=== PATIENT | male | born 1965 | race Caucasian/White ===

== ENCOUNTER 2019-01-08 18:50 | Inpatient (IN) | payer OTHER ==
[~2019-01-08] VITALS: Ht 180.3 cm; Wt 91.6 kg
[2019-01-08 19:10] VITALS: BP 240/160
[2019-01-08 20:41] LABS: BASOPHILS % (AUTO) 0.5 % (0.0-2.0); EOSINOPHILS # (AUTO) 0.1 K/uL (0-0.4); EOSINOPHILS % (AUTO) 1.3 % (0.0-4.0); HEMATOCRIT 32.4 % (36-52); HEMOGLOBIN 11.2 g/dL (12.0-18.0); LYMPHOCYTES # (AUTO) 1.9 K/uL (2.0-11.5); LYMPHOCYTES % (AUTO) 35.4 % (20.5-51.1); MEAN CORPUSCULAR HEMOGLOBIN 32 pg (27-31); MEAN CORPUSCULAR HGB CONC 35 g/dL (33-37); MONOCYTES # (AUTO) 0.3 K/uL (0.8-1.0); MONOCYTES % (AUTO) 5.8 % (1.7-9.3); PLATELET COUNT (AUTO) 217 K/uL (140-450); RED BLOOD CELL COUNT(AUTO) 3.48 MIL/uL (4.20-6.10); WHITE BLOOD COUNT (AUTO) 5.3 K/uL (4.8-10.8)
[2019-01-08 21:21] LABS: ANION GAP 15.2 (8-16); POTASSIUM 4.2 mmol/L (3.5-5.1)
[2019-01-08 21:23] LABS: CREATININE 4.3 mg/dL (0.7-1.3)
[2019-01-08 21:26] LABS: ALBUMIN 3.2 g/dL (3.4-5.0); TOTAL BILIRUBIN 0.4 mg/dL (0.0-1.0)
[2019-01-08] MEDS ORDERED: ALBUTEROL 0.083% 2.5 MG/3 ML NEBU INH PRN (23:55)
[2019-01-08] MEDS ORDERED: hydrALAZINE 20 MG/ML VIAL IVP PRN (23:55)
[2019-01-08] MEDS ORDERED: MORPHINE SULFATE 4 MG/ML SYR IVP PRN (23:55)
[2019-01-08] MEDS ORDERED: ONDANSETRON 4 MG/2 ML VIAL IVP PRN (23:55)
[2019-01-09] MEDS ORDERED: MORPHINE SULFATE 4 MG/ML SYR IVP ONE
[2019-01-09] MEDS ORDERED: METOPROLOL 5 MG/5 ML VIAL IVP ONE (00:20)
[2019-01-09 01:00] VITALS: BP 251/137
[2019-01-09 04:00] VITALS: BP 197/116
[2019-01-09] MEDS: LABETALOL 100 MG/20 ML VIAL IVP PRN ×2 (04:20→08:26)
[2019-01-09 07:35] LABS: ANION GAP 13.9 (8-16); CARBON DIOXIDE 22.9 mmol/L (21-32); CREATININE 3.9 mg/dL (0.7-1.3); POTASSIUM 3.8 mmol/L (3.5-5.1)
[2019-01-09 07:41] LABS: MAGNESIUM 1.7 mg/dL (1.8-2.4); PHOSPHORUS 3.2 mg/dL (2.5-4.9)
[2019-01-09 07:45] LABS: BASOPHILS % (AUTO) 0.4 % (0.0-2.0); EOSINOPHILS % (AUTO) 0.9 % (0.0-4.0); HEMATOCRIT 34.3 % (36-52); HEMOGLOBIN 11.9 g/dL (12.0-18.0); LYMPHOCYTES # (AUTO) 1.6 K/uL (2.0-11.5); LYMPHOCYTES % (AUTO) 32.2 % (20.5-51.1); MEAN CORPUSCULAR HEMOGLOBIN 32 pg (27-31); MEAN CORPUSCULAR HGB CONC 35 g/dL (33-37); MEAN CORPUSCULAR VOLUME 92.4 fL (80-94); MONOCYTES # (AUTO) 0.3 K/uL (0.8-1.0); MONOCYTES % (AUTO) 5.5 % (1.7-9.3); PLATELET COUNT (AUTO) 228 K/uL (140-450); RED BLOOD CELL COUNT(AUTO) 3.72 MIL/uL (4.20-6.10); RED CELL DISTRIBUTION WIDTH 14.1 % (11.6-13.7)
[2019-01-09 07:56] VITALS: BP 215/128
[2019-01-09] MEDS: ASPIRIN 81 MG TAB.CHEW PO SCH (08:15)
[2019-01-09] MEDS: ACETAMINOPHEN 325 MG TAB PO PRN ×2 (08:15→17:41)
[2019-01-09] MEDS ORDERED: diphenhydrAMINE 50 MG/ML VIAL IVP PRN (09:35)
[2019-01-09] MEDS ORDERED: MAG SULF 2000 MG/WATER PREMIX 50 ML IV PRN (09:35)
[2019-01-09] MEDS ORDERED: SODIUM PHOSPHATE 118 ML ENEM RC PRN (09:35)
[2019-01-09] MEDS ORDERED: ALUMINUM HYD/MAG/SIMETHICONE 30 ML UDC PO PRN (09:35)
[2019-01-09] MEDS ORDERED: BISACODYL 10 MG SUPP RC PRN (09:35)
[2019-01-09] MEDS ORDERED: MAGNESIUM OXIDE 400 MG TAB PO PRN (09:35)
[2019-01-09] MEDS ORDERED: LORazepam 2 MG/ML VIAL IVP PRN (09:35)
[2019-01-09] MEDS ORDERED: ALBUTEROL 0.083% 2.5 MG/3 ML NEBU INH PRN (09:35)
[2019-01-09] MEDS ORDERED: cloNIDine 0.1 MG TAB PO PRN (09:35)
[2019-01-09] MEDS ORDERED: POTASSIUM CHLORIDE 40 MEQ, LIDOCAINE 1% 25 MG in NACL 0.9% 250 ML IV PRN (09:35)
[2019-01-09] MEDS ORDERED: DOCUSATE SODIUM 250 MG GELCAP PO PRN (09:35)
[2019-01-09] MEDS ORDERED: POTASSIUM CHLORIDE 10 MEQ TABER PO PRN (09:35)
[2019-01-09] MEDS ORDERED: HYDROcodone/APAP 5/325 MG 1 TAB TAB PO PRN ×2 (09:35)
[2019-01-09] MEDS ORDERED: IPRATROPIUM 0.02% 0.5 MG/2.5 ML NEBU INH PRN (09:35)
[2019-01-09] MEDS ORDERED: NIFEdipine 60 MG TABER PO SCH (10:06)
[2019-01-09] MEDS ORDERED: LISINOPRIL 20 MG TAB PO SCH (10:09)
[2019-01-09 12:00] VITALS: BP 202/119
[2019-01-09] MEDS: cloNIDine 0.1 MG TAB PO SCH ×2 (12:01→21:05)
[2019-01-09] MEDS ORDERED: ACETAMINOPHEN 650 MG SUPP RC PRN (14:00)
[2019-01-09] MEDS ORDERED: ACETAMINOPHEN 325 MG TAB PO PRN (14:00)
[2019-01-09 15:53] VITALS: BP 155/91
[2019-01-09 20:00] VITALS: BP 158/97
[2019-01-10] VITALS: BP 122/80
[2019-01-10 04:00] VITALS: BP 148/79
[2019-01-10] MEDS: cloNIDine 0.1 MG TAB PO SCH (05:25)
[2019-01-10 08:00] VITALS: BP 133/84
[2019-01-10 08:17] LABS: BASOPHILS % (AUTO) 0.3 % (0.0-2.0); EOSINOPHILS % (AUTO) 0.9 % (0.0-4.0); HEMATOCRIT 31.8 % (36-52); HEMOGLOBIN 11.1 g/dL (12.0-18.0); LYMPHOCYTES # (AUTO) 1.5 K/uL (2.0-11.5); LYMPHOCYTES % (AUTO) 40.1 % (20.5-51.1); MEAN CORPUSCULAR HEMOGLOBIN 32 pg (27-31); MEAN CORPUSCULAR HGB CONC 35 g/dL (33-37); MEAN CORPUSCULAR VOLUME 92.2 fL (80-94); MONOCYTES # (AUTO) 0.3 K/uL (0.8-1.0); NEUTROPHILS % (AUTO) 51.7 % (42.2-75.2); PLATELET COUNT (AUTO) 207 K/uL (140-450); RED BLOOD CELL COUNT(AUTO) 3.45 MIL/uL (4.20-6.10); RED CELL DISTRIBUTION WIDTH 13.5 % (11.6-13.7); WHITE BLOOD COUNT (AUTO) 3.8 K/uL (4.8-10.8)
[2019-01-10 08:26] LABS: MAGNESIUM 1.9 mg/dL (1.8-2.4); PHOSPHORUS 3.1 mg/dL (2.5-4.9)
[2019-01-10] MEDS: ASPIRIN 81 MG TAB.CHEW PO SCH (08:46)
[2019-01-10] MEDS ORDERED: LISINOPRIL 20 MG TAB PO SCH (09:00)
[2019-01-10] MEDS ORDERED: NIFEdipine 60 MG TABER PO SCH (09:00)
[2019-01-10 09:32] LABS: ANION GAP 10.5 (8-16); CARBON DIOXIDE 29.1 mmol/L (21-32); CREATININE 3.3 mg/dL (0.7-1.3); POTASSIUM 3.6 mmol/L (3.5-5.1)
[2019-01-10] MEDS ORDERED: NIFE60TE8 PO (10:30)
[2019-01-10] MEDS ORDERED: LISI-420 PO (10:30)
[2019-01-10] MEDS ORDERED: CLON0.1T42 PO (10:30)
== END 2019-01-10 12:15 | disposition home or self-care (01) | DRG 199 ==
LOC: MED 18:50 → MTU 23:55
PROVIDERS: ADMIT Internal Medicine Pulmonary Disease; ATTEND Internal Medicine Pulmonary Disease
PROC: 5A1D70Z Performance of Urinary Filtration, Intermittent, Less than 6 Hours Per Day (ICD-10-PCS; principal; 2019-01-09)
DX: I16.0 Hypertensive urgency (principal); E44.1 Mild protein-calorie malnutrition; N18.6 End stage renal disease; I12.0 Hypertensive chronic kidney disease with stage 5 chronic kidney disease or end stage renal disease; E86.0 Dehydration; E83.42 Hypomagnesemia; Z59.0 Homelessness; Z91.15 Patient's noncompliance with renal dialysis; Z99.2 Dependence on renal dialysis
CPT/HCPCS: 36415; 71045; 80048; 80053; 82948; 83036; 83735; 83880; 84100; 84484; 85025; 87081; 90935; 93005; 96374; 96375; 99285; J0360; J1644; J2270; J3490

== ENCOUNTER 2019-02-23 12:31 | Inpatient (IN) | payer OTHER ==
[~2019-02-23] VITALS: Ht 177.8 cm; Wt 96.2 kg
[~2019-02-23 12:31] MED LIST: CLON0.1T42 PO; LISI-420 PO; NIFE60TE8 PO
--- NOTE | 2019-02-23 12:45 | NUR ---
Patient ambulated to bed 6. RN evaluating patient at bedside.
[2019-02-23 12:47] VITALS: BP 235/176
--- NOTE | 2019-02-23 12:55 | NUR ---
Dr. Mahajan evaluating patient at bedside.
--- NOTE | 2019-02-23 13:02 | NUR ---
PATIENT PRESENTS TO ED WITH N/V X 2 DAYS. +BOV, +DIZZINESS, +SOB, +ABDOMINAL PAIN, +BACK PAIN. PATIENT STATES THAT HE USUALLY HAS HIGH BLOOD PRESSURE AND HAS NOT TAKEN HIS MEDS FOR 4 DAYS. SKIN IS PINK/WARM/DRY; AAOX4 WITH EVEN AND STEADY GAIT; LUNGS CLEAR BL; HR EVEN AND REGULAR; PT DENIES ANY FEVER, CP OR COUGH AT THIS TIME; PATIENT STATES PAIN OF 10/10 AT THIS TIME; VSS; PATIENT POSITIONED FOR COMFORT; HOB ELEVATED; BEDRAILS UP X2; BED DOWN. ER MD MADE AWARE OF PATIENT.
[2019-02-23] MEDS ORDERED: LABETALOL 100 MG/20 ML VIAL IVP ONE ×2 (13:05→14:50)
--- NOTE | 2019-02-23 13:08 | NUR ---
telecasting technician at bedside.
--- NOTE | 2019-02-23 13:36 | NUR ---
IV STARTED AND LABS DRAWN SENT TO LAB.
[2019-02-23 13:43] LABS: BASOPHILS % (AUTO) 0.5 % (0.0-2.0); EOSINOPHILS % (AUTO) 0.4 % (0.0-4.0); HEMATOCRIT 31.3 % (36-52); HEMOGLOBIN 10.4 g/dL (12.0-18.0); LYMPHOCYTES # (AUTO) 2.6 K/uL (2.0-11.5); LYMPHOCYTES % (AUTO) 28.4 % (20.5-51.1); MEAN CORPUSCULAR HEMOGLOBIN 31 pg (27-31); MEAN CORPUSCULAR HGB CONC 33 g/dL (33-37); MONOCYTES # (AUTO) 0.7 K/uL (0.8-1.0); NEUTROPHILS # (AUTO) 5.8 K/uL (1.8-7.7); NEUTROPHILS % (AUTO) 62.7 % (42.2-75.2); PLATELET COUNT (AUTO) 289 K/uL (140-450); RED BLOOD CELL COUNT(AUTO) 3.36 MIL/uL (4.20-6.10); RED CELL DISTRIBUTION WIDTH 13.5 % (11.6-13.7); WHITE BLOOD COUNT (AUTO) 9.2 K/uL (4.8-10.8)
[2019-02-23 14:08] LABS: PROTHROMBIN TIME 9.6 secs (10.8-13.4)
[2019-02-23 14:37] LABS: ANION GAP 17.6 (8-16); CARBON DIOXIDE 19.9 mmol/L (21-32); POTASSIUM 4.5 mmol/L (3.5-5.1)
[2019-02-23 14:45] LABS: ALBUMIN 3.1 g/dL (3.4-5.0); PHOSPHORUS 4.7 mg/dL (2.5-4.9); TOTAL BILIRUBIN 0.7 mg/dL (0.0-1.0)
[2019-02-23 14:46] LABS: CREATININE 4.8 mg/dL (0.7-1.3)
[2019-02-23] MEDS ORDERED: ASPIRIN 81 MG TAB.CHEW PO ONE (14:50)
[2019-02-23] MEDS ORDERED: ONDANSETRON 4 MG/2 ML VIAL IVP ONE (15:00)
[2019-02-23] MEDS ORDERED: MORPHINE SULFATE 4 MG/ML SYR IVP ONE (15:00)
[2019-02-23 15:35] LABS: APPEARANCE,URINE CLEAR (CLEAR); BILIRUBIN,URINE NEGATIVE (NEGATIVE); BLOOD, URINE 2+ (NEGATIVE); COLOR,URINE YELLOW (YELLOW); LEUKOCYTE ESTERASE ,URINE NEGATIVE (NEGATIVE); NITRITE, URINE NEGATIVE (NEGATIVE); PH,URINE 5.5 (5.0-9.0); UGLUCOSE NEGATIVE (NEGATIVE)
[2019-02-23] MEDS ORDERED: MORPHINE SULFATE 4 MG/ML SYR IVP PRN (15:35)
[2019-02-23] MEDS ORDERED: ONDANSETRON 4 MG/2 ML VIAL IVP PRN (15:35)
[2019-02-23] MEDS ORDERED: MORPHINE SULFATE 2 MG/ML SYR IVP PRN (15:35)
[2019-02-23] MEDS ORDERED: hydrALAZINE 20 MG/ML VIAL IVP PRN (15:35)
[2019-02-23] MEDS ORDERED: cloNIDine-TTS3 0.3 MG/24 HR 1 EA PATCH TD SCH ×2 (15:35→17:19)
[2019-02-23 15:46] LABS: RBC,URINE 0-5 /HPF (0-5); WBC,URINE 0-5 /HPF (0-5)
[2019-02-23 16:00] VITALS: BP 189/137
--- NOTE | 2019-02-23 16:00 | NUR ---
RECEIVED REPORT FROM ED NURSE KATY. PATIENT IS AWAKE, VERBALLY RESPONSIVE, ALERT, ORIENTED X4. RESPIRATION EVEN AND UNLABORED. DENIES PAIN OR DISCOMFORT AT THIS TIME. SAFETY MEASURES IN PLACE. IV INTACT TO RFA WITH 22G SALINE LOCK. CALL LIGHT WITHIN REACH. WILL MONITOR PATIENT.
--- NOTE | 2019-02-23 16:05 | NUR ---
MRSA SWAB DONE TO PT AND SAMPLE SENT TO LAB.
--- NOTE | 2019-02-23 16:10 | NUR ---
Patient will be admitted to care of DR WINTER. Admited to [facility]. Will go to room 115. Belongings list completed. Report to GUMARO DIOP.
[2019-02-23] MEDS: ISOSORBIDE DINITRATE 20 MG TAB PO SCH (17:47)
--- NOTE | 2019-02-23 19:33 | NUR ---
ENDORSED PT TO CHILD PSYCHOLOGY TEACHER NURSESRINIVASAN, FOR CONTINUITY OF CARE.
--- NOTE | 2019-02-23 19:55 | NUR ---
SEEN PT AWAKE, ALERT AND ORIENTED APPEARS COMFORTABLE. INITIAL ASSESSMENT DONE. VITAL SIGNS CHECKED. PT'S BP ON LEFT ARM:181/123. WILL MEDICATE ORDERED. PT STATES "IT'S NORMAL FOR ME." PT SAID HIS LAST DIALYSIS WAS A MONTH AGO AND THAT HE STILL VOIDS. PT DENIES ANY PAIN OR SHORTNESS OF BREATH RIGHT NOW. PT ASKING FOR APPLE JUICE, WILL GIVE ONE. URINAL EMPTIED W/ 200ML YELLOW-COLORED URINE.
[2019-02-23 20:00] VITALS: BP 181/123
[2019-02-23] MEDS: hydrALAZINE 25 MG TAB PO SCH (21:14)
--- NOTE | 2019-02-23 21:15 | NUR ---
SEEN PT AWAKE, WATCHING TV. MEDICATIONS GIVEN W/ TEACHINGS. URINAL EMPTIED. PT DENIES ANY DISCOMFORT AT THIS TIME. WILL RECHECK BP.
[2019-02-23] MEDS: cloNIDine 0.1 MG TAB PO SCH ×2 (21:22→23:44)
--- NOTE | 2019-02-23 22:50 | NUR ---
SEEN PT TOSSING AND TURNING IN BED. ASKED PT WHAT'S WRONG. PT STATES "I FEEL ANXIOUS AND CAN'T SLEEP, I HAVEN'T FELT THIS WAY BEFORE." INFORMED PT THAT WILL NOTIFY .
--- NOTE | 2019-02-23 22:58 | NUR ---
PAGED DR WINTER PAPER MACHINE TENDER FOR KALE. WILL AWAIT FOR CALL BACK.
[2019-02-23] MEDS ORDERED: LORazepam 2 MG/ML VIAL IM/IVP PRN (23:00)
[2019-02-23] MEDS ORDERED: ZOLPIDEM 5 MG TAB PO PRN (23:00)
--- NOTE | 2019-02-23 23:00 | NUR ---
SPOKE TO DR WINTER REGARDING PT. ORDER FOR ATIVAN AND AMBIEN RECEIVED. WILL GIVE PT MEDICATION.
[2019-02-24] VITALS: BP 182/33
--- NOTE | 2019-02-24 00:30 | NUR ---
PT SLEEPING COMFORTABLY BUT AROUSABLE. NO S/S OF DISTRESS NOTED. VS STABLE. NO COMPLAINTS OF PAIN. NO SOB. AFEBRILE. WILL CONTINUE TO MONITOR. Addendum: 02/25/19 at 0043 by Ivan Mike RN WRONG DATE.
--- NOTE | 2019-02-24 00:50 | NUR ---
PT'S BP CHECKED:168/114. URINAL EMPTIED. PT GIVEN WARM BLANKET PER REQUEST. WILL CONTINUE TO MONITOR.
--- NOTE | 2019-02-24 01:51 | NUR ---
AT 0015, PAGED DR WINTER REGARDING PT'S BP. WILL AWAIT FOR CALL BACK. AT 0020, DR WINTER CALLED BACK AND INFORMED HIM ABOUT PT'S BP. HE SAID, "LEAVE HIM ALONE, THAT'S OK." NO NEW ORDER RECEIVED.
--- NOTE | 2019-02-24 02:55 | NUR ---
SEEN PT ASLEEP BUT EASILY AROUSABLE. URINAL EMPTIED. PT DENIES ANY DISCOMFORT.
--- NOTE | 2019-02-24 03:50 | NUR ---
AWAKEN PT. VITAL SIGNS CHECKED. BP ON RIGHT RLG=963/126. PT DENIES ANY DISCOMFORT OR SOB. INFORMED PT THAT HE WILL HAVE DIALYSIS TODAY. PT AGREEABLE.PT DENIES ANY OTHER NEEDS. URINAL EMPTIED. PT DENIES ANY OTHER NEEDS.
[2019-02-24 04:00] VITALS: BP 174/126
--- NOTE | 2019-02-24 06:07 | NUR ---
SPOKE TO THOMAS-DIALYSIS NURSE VERIFYING THE STAT ORDER FOR HEMODIALYSIS. INFORMATION RELAYED.
--- NOTE | 2019-02-24 06:20 | NUR ---
AWAKEN PT. PT SIGNED CONSENT FOR HEMODIALYSIS TODAY. URINAL EMPTIED W/ 300ML CLEAR, YELLOW URINE. CALL LIGHT W/IN REACH.
--- NOTE | 2019-02-24 06:48 | NUR ---
WILL ENDORSE CARE TO DAYSHIFT NURSE.
[2019-02-24 07:22] LABS: BASOPHILS % (AUTO) 0.4 % (0.0-2.0); EOSINOPHILS % (AUTO) 0.6 % (0.0-4.0); HEMATOCRIT 30.8 % (36-52); HEMOGLOBIN 10.3 g/dL (12.0-18.0); LYMPHOCYTES # (AUTO) 1.8 K/uL (2.0-11.5); LYMPHOCYTES % (AUTO) 27.6 % (20.5-51.1); MEAN CORPUSCULAR HEMOGLOBIN 32 pg (27-31); MEAN CORPUSCULAR HGB CONC 33 g/dL (33-37); MEAN CORPUSCULAR VOLUME 94.6 fL (80-94); MONOCYTES # (AUTO) 0.5 K/uL (0.8-1.0); MONOCYTES % (AUTO) 7.1 % (1.7-9.3); NEUTROPHILS # (AUTO) 4.2 K/uL (1.8-7.7); NEUTROPHILS % (AUTO) 64.3 % (42.2-75.2); PLATELET COUNT (AUTO) 255 K/uL (140-450); RED BLOOD CELL COUNT(AUTO) 3.26 MIL/uL (4.20-6.10); RED CELL DISTRIBUTION WIDTH 13.4 % (11.6-13.7); WHITE BLOOD COUNT (AUTO) 6.5 K/uL (4.8-10.8)
--- NOTE | 2019-02-24 07:34 | NUR ---
RECEIVED REPORT FROM HEALTH INFORMATION MANAGERS RN FOR CONTINUITY OF CARE. PATIENT IS AAOX4, COOPERATIVE. RESPIRATION EVEN AND UNLABORED. DENIES PAIN OR DISCOMFORT AT THIS TIME. SKIN IS INTACT. PT HAS RIGHT SUBCLAVIAN KOREY CATH. SAFETY MEASURES IN PLACE. IV INTACT TO R FA WITH 22G SALINE LOCK. EXPLAINED POC TO PT AND PT VERBALIZED UNDERSTANDING. CALL LIGHT WITHIN REACH. BED IN LOW POSITION. WILL MONITOR PATIENT CLOSELY.
[2019-02-24 07:42] LABS: ALBUMIN 2.9 g/dL (3.4-5.0); ANION GAP 16.1 (8-16); CARBON DIOXIDE 23.2 mmol/L (21-32); POTASSIUM 5.3 mmol/L (3.5-5.1); TOTAL BILIRUBIN 0.8 mg/dL (0.0-1.0)
[2019-02-24 08:10] VITALS: BP 208/136
--- NOTE | 2019-02-24 08:32 | NUR ---
PATIENT HAS BEEN SCREENED AND CATEGORIZED MODERATE NUTRITION RISK. PATIENT WILL BE SEEN WITHIN 3-5 DAYS OF ADMISSION. 02/26/19 02/28/[address]
[2019-02-24 08:33] LABS: CREATININE 4.9 mg/dL (0.7-1.3)
[2019-02-24] MEDS: hydrALAZINE 25 MG TAB PO SCH ×4 (08:35→21:00)
[2019-02-24] MEDS: NIFEdipine 60 MG TABER PO SCH (08:36)
[2019-02-24] MEDS: ASPIRIN 81 MG TAB.CHEW PO SCH (08:36)
[2019-02-24] MEDS: ISOSORBIDE DINITRATE 20 MG TAB PO SCH ×3 (08:36→17:52)
[2019-02-24] MEDS: cloNIDine 0.1 MG TAB PO SCH ×2 (08:37→20:22)
[2019-02-24] MEDS ORDERED: ALTEPLASE 2 MG VIAL MC SCH (08:45)
--- NOTE | 2019-02-24 08:47 | NUR ---
PT KOREY CATH NOT WORKING PROPERLY. ALTEPLASE USED TO UNCLOG CATH. DIALYSIS NURSE UNABLE TO START DIALYSIS AT THIS TIME. DIALYSIS NURSE WILL COMPLETE DIALYSIS ON ANOTHER PT AND THEN COME BACK TO THIS PT.
[2019-02-24] MEDS ORDERED: FUROSEMIDE 40 MG/4 ML VIAL IVP SCH (10:30)
[2019-02-24] MEDS ORDERED: SODIUM ZIRCONIUM CYCLOSILICATE 10 GM POWD.PACK PO SCH (10:30)
[2019-02-24] MEDS ORDERED: CARVEDILOL 6.25 MG TAB PO SCH (11:00)
--- NOTE | 2019-02-24 11:47 | NUR ---
PT SLEEPING. ALL NEEDS MET.
[2019-02-24 12:00] VITALS: BP 156/86
--- NOTE | 2019-02-24 13:24 | NUR ---
PT WATCHING TV IN BED. ALL NEEDS MET. WILL CONTINUE TO ROUND FREQUENTLY ON PT.
--- NOTE | 2019-02-24 14:48 | NUR ---
HD COMPLETE. PT TOTAL OUTPUT WAS 2L. PT TOLERATED WELL. WILL CONTINUE TO ROUND FREQUENTLY ON PT. Addendum: 02/24/19 at 1815 by Ilda Grijalva RN 8-HD COMPLETE. PT TOTAL OUTPUT WAS 2L. PT TOLERATED WELL. WILL CONTINUE TO ROUND FREQUENTLY ON PT.
--- NOTE | 2019-02-24 15:41 | NUR ---
PT RESTING IN BED. RECEIVING DIALYSIS. TOLERATING WELL. ALL NEEDS MET. WILL CONTINUE TO ROUND FREQUENTLY ON PT.
[2019-02-24 16:00] VITALS: BP 152/90
--- NOTE | 2019-02-24 16:48 | NUR ---
HD COMPLETE. PT TOTAL OUTPUT WAS 2L. PT TOLERATED WELL. WILL CONTINUE TO ROUND FREQUENTLY ON PT.
--- NOTE | 2019-02-24 18:15 | NUR ---
PT RESTING IN BED EATING DINNER. ALL NEEDS MET.
[2019-02-24 20:00] VITALS: BP 154/78
--- NOTE | 2019-02-24 20:10 | NUR ---
PT HAS COMPLAINTS OF HEADACHE. CALLED MD FOR TYL ORDER. NEW ORDER FOR TYL 650MG PO Q4H PRN FOR HEADACHE AND MILD PAIN. TORB.
--- NOTE | 2019-02-24 20:14 | NUR ---
PT ENDORSED TO SLOPE RUNNER BY CHARGE NURSE YARA. PT IN STABLE CONDITION AT THIS TIME.
--- NOTE | 2019-02-24 20:15 | NUR ---
REPORT RECEIVED FROM AM NURSE AT BEDSIDE. PT IN STABLE CONDITION. AAOX4. INTRODUCED SELF TO PT. BOARD UPDATED. PT HAS COMPLAINTS OF HEADACHE. WILL MEDICATE. NO SOB. AFEBRILE. PT IS AMBULATORY. IV SITE R FA 22G SL PATENT AND INTACT. SKIN WARM, DRY, AND INTACT WITH NO OPEN WOUNDS. BED LOCKED IN LOW POSITION. CALL MILAN WITHIN REACH. SAFETY PRECAUTION IN PLACE. ALL NEEDS MET AT THIS TIME.
[2019-02-24] MEDS: ACETAMINOPHEN 650 MG/20.3 ML UDC PO PRN (20:22)
--- NOTE | 2019-02-24 20:22 | NUR ---
COREG, CLONIDINE, AND TYL GIVEN PO. PT TOLERATED WELL. HYDRALAZINE HELD DUE TO COMPLETION OF HEMODIALYSIS AND HYDRALAZINE JUST GIVEN@1753. WILL GIVEN LATER IF BP GOES UP.
[2019-02-24] MEDS: CARVEDILOL 6.25 MG TAB PO SCH (20:23)
--- NOTE | 2019-02-24 21:30 | NUR ---
PT LAYING IN BED WATCHING TV. NO S/S OF DISTRESS NOTED. WILL CONTINUE TO MONITOR.
--- NOTE | 2019-02-24 21:53 | NUR ---
HYDRALAZINE HELD DUE TO MEDICATION GIVEN AT 1753. MEDICATION WILL BE DUE AGAIN@0500. WILL GIVEN AT THAT TIME.
[2019-02-25] VITALS: BP 137/85
--- NOTE | 2019-02-25 00:40 | NUR ---
PT SLEEPING COMFORTABLY BUT AROUSABLE. NO S/S OF DISTRESS NOTED. VS STABLE. NO COMPLAINTS OF PAIN. NO SOB. AFEBRILE. WILL CONTINUE TO MONITOR.
--- NOTE | 2019-02-25 02:30 | NUR ---
PT SLEEPING COMFORTABLY BUT AROUSABLE. NO S/S OF DISTRESS NOTED. RESPIRATIONS EVEN, UNLABORED, AND WNL. WILL CONTINUE TO MONITOR.
[2019-02-25 04:00] VITALS: BP 162/97
[2019-02-25] MEDS: hydrALAZINE 25 MG TAB PO SCH ×3 (04:08→20:53)
--- NOTE | 2019-02-25 04:08 | NUR ---
APRESOLINE GIVEN PO. PT TOLERATED WELL.
[2019-02-25] MEDS: ACETAMINOPHEN 650 MG/20.3 ML UDC PO PRN ×3 (05:08→12:49)
--- NOTE | 2019-02-25 05:08 | NUR ---
TYL GIVEN PO FOR HEADACHE. PT TOLERATED WELL.
--- NOTE | 2019-02-25 06:30 | NUR ---
PT REFUSED LAB DRAWS WITH CLAY ARTISAN. ALSO CURSED OUT HIM OUT.
--- NOTE | 2019-02-25 07:15 | NUR ---
RECEIVED REPORT FROM DAY SHIFT NURSE XIN FOR CONTINUITY OF CARE. PT IN STABLE CONDITION. RESPIRATIONS EVEN AND UNLABORED, ROOM AIR. IV INTACT AND PATENT. ORIENTED PT TO ROOM. SAFETY MEASURES IN PLACE. BED IN LOW POSITION. CALL LIGHT AT BEDSIDE. WILL CONTINUE TO MONITOR.
[2019-02-25 08:00] VITALS: BP 165/93
[2019-02-25] MEDS: ASPIRIN 81 MG TAB.CHEW PO SCH (08:50)
[2019-02-25] MEDS: CARVEDILOL 6.25 MG TAB PO SCH ×2 (08:50→20:51)
[2019-02-25] MEDS: ISOSORBIDE DINITRATE 20 MG TAB PO SCH ×3 (08:51→17:59)
[2019-02-25] MEDS: NIFEdipine 60 MG TABER PO SCH (08:53)
[2019-02-25] MEDS: cloNIDine 0.1 MG TAB PO SCH ×2 (08:53→20:51)
--- NOTE | 2019-02-25 08:55 | NUR ---
GAVE ORDERED DUE MEDICATIONS AT THIS TIME. PT TOLERATED WELL. BED IN LOW POSITION. CALL LIGHT AT BEDSIDE. WILL CONTINUE TO MONITOR.
[2019-02-25 09:18] LABS: BASOPHILS % (AUTO) 0.5 % (0.0-2.0); EOSINOPHILS % (AUTO) 0.4 % (0.0-4.0); HEMATOCRIT 34.4 % (36-52); HEMOGLOBIN 11.4 g/dL (12.0-18.0); LYMPHOCYTES # (AUTO) 0.8 K/uL (2.0-11.5); LYMPHOCYTES % (AUTO) 12.1 % (20.5-51.1); MEAN CORPUSCULAR HEMOGLOBIN 31 pg (27-31); MEAN CORPUSCULAR HGB CONC 33 g/dL (33-37); MEAN CORPUSCULAR VOLUME 94.4 fL (80-94); MONOCYTES # (AUTO) 0.4 K/uL (0.8-1.0); MONOCYTES % (AUTO) 6.4 % (1.7-9.3); NEUTROPHILS # (AUTO) 5.2 K/uL (1.8-7.7); NEUTROPHILS % (AUTO) 80.6 % (42.2-75.2); PLATELET COUNT (AUTO) 327 K/uL (140-450); RED BLOOD CELL COUNT(AUTO) 3.64 MIL/uL (4.20-6.10); RED CELL DISTRIBUTION WIDTH 13.8 % (11.6-13.7); WHITE BLOOD COUNT (AUTO) 6.4 K/uL (4.8-10.8)
[2019-02-25 09:50] LABS: ANION GAP 13.9 (8-16); CREATININE 3.8 mg/dL (0.7-1.3); POTASSIUM 3.9 mmol/L (3.5-5.1); TOTAL BILIRUBIN 0.9 mg/dL (0.0-1.0)
--- NOTE | 2019-02-25 10:03 | NUR ---
ORIENTED PT WITH PHONE TO DIAL OUT TO FAMILY. PT VERBALIZED UNDERSTANDING. PT WAS ABLE TO CONTACT SISTER.
--- NOTE | 2019-02-25 11:43 | NUR ---
Hub Cutter Note: I faxed patient's information to [facility] coordinator Rebecca, phone number , fax number .
[2019-02-25 12:00] VITALS: BP 144/82
--- NOTE | 2019-02-25 12:45 | NUR ---
PT EATING LUNCH AT BEDSIDE IN STABLE CONDITION. BED IN LOW POSITION. CALL LIGHT AT BEDSIDE. WILL CONTINUE TO MONITOR.
[2019-02-25] MEDS ORDERED: ISOS20TA13 PO (12:48)
[2019-02-25] MEDS ORDERED: HYDR-4420 PO (12:48)
[2019-02-25] MEDS ORDERED: CARV6.252 PO (12:48)
--- NOTE | 2019-02-25 14:26 | NUR ---
PT LYING IN BED SLEEPING AT THIS TIME. RESPIRATIONS EVEN AND UNLABORED. BED IN LOW POSITION. CALL LIGHT AT BEDSIDE. WILL CONTINUE TO MONITOR.
--- NOTE | 2019-02-25 14:36 | NUR ---
Rac Specialist Note: I met with patient at bedside to discuss discharge plan. I informed him of MD's recommendation for snf placement for physical therapy. I provided him with general information about group home facilities including an explanation of difference between skilled (short term) snf placement and assisted snf placement (emt intermediate). He is in agreement with short term snf placement for physical therapy. He stated he does want emt intermediate snf placement. He is currently employed and plans to go to a room and board or hotel upon discharge from snf. He is aware snfs that are contracted with [facility] will be contacted. He does not have any questions or concerns at this time. Patient was pleasant during conversation.
--- NOTE | 2019-02-25 15:14 | NUR ---
Business Test Analyst Note: Per Deborah from [facility] , they do not have any male beds available at this time. Per Cornelia from [facility] , they do not have any male beds available at this time. Pending response from Madonna at [facility] ([facility] / . I faxed inquiry to [facility], phone number
--- NOTE | 2019-02-25 15:32 | NUR ---
Television Station Manager Note: Long Seo from [facility] , patient has been accepted and may go to room 123A upon discharge, accepting MD is . I informed Rayray we are in the process of arranging outpatient dialysis for patient. Pending response from Madonna at [facility] (previously named [facility]) / . I faxed physical therapy notes and MD's snf order to [facility], Police Radio Dispatcher Tiffanie made aware. Police Radio Dispatcher Tiffanie spoke with Police Radio Dispatcher Jessy from [facility] and informed her of MD's snf order. Jessy provided Tiffanie with auth transportation from [facility] to [facility] [phone]. Addendum: 02/25/19 at 1549 by Rebecca Davies SS Long Peacock from [facility] (previously named [facility]) / , they cannot accept patient because they think patient will be a difficult to discharge.
[2019-02-25 16:00] VITALS: BP 148/89
--- NOTE | 2019-02-25 16:44 | NUR ---
THOMAS OF DIALYSIS NOTIFIED WITH THE HD ORDER FOR TOMORROW.
--- NOTE | 2019-02-25 17:50 | NUR ---
PT LYING IN BED WATCHING TV IN STABLE CONDITION. BED IN LOW POSITION. CALL LIGHT AT BEDSIDE. WILL CONTINUE TO MONITOR.
--- NOTE | 2019-02-25 19:15 | NUR ---
GAVE REPORT TO OUTREACH SPECIALIST NURSE XIN FOR CONTINUITY OF CARE. PT IN STABLE CONDITION.
--- NOTE | 2019-02-25 19:16 | NUR ---
REPORT RECEIVED FROM AM NURSE AT BEDSIDE. PT IN STABLE CONDITION. AAOX4. INTRODUCED SELF TO PT. BOARD UPDATED. NO COMPLAINTS OF PAIN. NO SOB. AFEBRILE. PT IS AMBULATORY. PT HAS DIALYSIS ACCESS ON HIS RIGHT UPPER CHEST. IV SITE R FA22G SL PATENT AND INTACT. SKIN WARM, DRY AND INTACT WITH NO OPEN WOUNDS. BED LOCKED IN LOW POSITION. CALL MILAN WITHIN REACH. SAFETY PRECAUTION IN PLACE. ALL NEEDS MET AT THIS TIME.
[2019-02-25 20:00] VITALS: BP 154/92
--- NOTE | 2019-02-25 20:51 | NUR ---
COREG AND CLONIDINE GIVEN PO. PT TOLERATED WELL. HYDRALAZINE HELD DUE TO PT BP NOT AT DANGEROUSLY INCREASED.
--- NOTE | 2019-02-25 22:21 | NUR ---
BP REASSESSED@141/81 WITH HR OF 89.
[2019-02-26] VITALS (7 sets, daily range): BP systolic 143–160; BP diastolic 84–96
--- NOTE | 2019-02-26 00:30 | NUR ---
PT SLEEPING COMFORTABLY BUT AROUSABLE FOR VS CHECK. NO S/S OF DISTRESS NOTED. WILL CONTINUE TO MONITOR.
--- NOTE | 2019-02-26 02:25 | NUR ---
PT SLEEPING COMFORTABLY BUT AROUSABLE. NO S/S OF DISTRESS NOTED. RESPIRATIONS EVEN, UNLABORED, AND WNL. WILL CONTINUE TO MONITOR.
[2019-02-26] MEDS: hydrALAZINE 25 MG TAB PO SCH ×3 (04:06→21:25)
--- NOTE | 2019-02-26 04:06 | NUR ---
HYDRALAZINE GIVEN PO. PT TOLERATED WELL.
--- NOTE | 2019-02-26 06:30 | NUR ---
PT SLEEPING COMFORTABLY BUT AROUSABLE. NO S/S OF DISTRESS NOTED. NO COMPLAINTS OF PAIN. NO SOB. AFEBRILE. WILL CONTINUE TO MONITOR.
[2019-02-26 06:45] LABS: BASOPHILS % (AUTO) 0.4 % (0.0-2.0); EOSINOPHILS % (AUTO) 0.6 % (0.0-4.0); HEMATOCRIT 30.2 % (36-52); HEMOGLOBIN 10.2 g/dL (12.0-18.0); LYMPHOCYTES # (AUTO) 1.4 K/uL (2.0-11.5); LYMPHOCYTES % (AUTO) 26.3 % (20.5-51.1); MEAN CORPUSCULAR HEMOGLOBIN 32 pg (27-31); MEAN CORPUSCULAR HGB CONC 34 g/dL (33-37); MEAN CORPUSCULAR VOLUME 94.8 fL (80-94); MONOCYTES # (AUTO) 0.5 K/uL (0.8-1.0); NEUTROPHILS # (AUTO) 3.3 K/uL (1.8-7.7); NEUTROPHILS % (AUTO) 63.7 % (42.2-75.2); PLATELET COUNT (AUTO) 262 K/uL (140-450); RED BLOOD CELL COUNT(AUTO) 3.19 MIL/uL (4.20-6.10); RED CELL DISTRIBUTION WIDTH 13.8 % (11.6-13.7); WHITE BLOOD COUNT (AUTO) 5.1 K/uL (4.8-10.8)
--- NOTE | 2019-02-26 07:03 | NUR ---
RECEIVED REPORT FROM TIMBER CRUISER NURSE. PT AROUSABLE TO NAME, ORIENTED X4. PT ON PHYSIOTHERAPY PRACTICE MANAGER. IV ON RT FA 22 GA ON SALINE LOCK, FLUSHING WITH NO RESISTANCE. DIALYSIS ACCESS/KOREY CATH ON RT UPPER CHEST, DRESSING CLEAN, DRY AND INTACT. ABD SOFT, BS ACTIVE, LBM 02/18. SKIN IS INTACT, WARM TO TOUCH. REVIEWED POC WITH PT, PT VERBALIZED UNDERSTANDING.
[2019-02-26 07:23] LABS: HEPATITIS A ANTIBODY IGM Negative (Negative); HEPATITIS B SURFACE ANTIBODY Reactive (.); HEPATITIS B SURFACE ANTIGEN Negative (Negative)
[2019-02-26 07:58] LABS: ALBUMIN 2.6 g/dL (3.4-5.0); ANION GAP 14.1 (8-16); CARBON DIOXIDE 25.2 mmol/L (21-32); CREATININE 3.9 mg/dL (0.7-1.3); POTASSIUM 4.3 mmol/L (3.5-5.1); TOTAL BILIRUBIN 0.9 mg/dL (0.0-1.0)
[2019-02-26] MEDS: ASPIRIN 81 MG TAB.CHEW PO SCH (08:15)
[2019-02-26] MEDS: ISOSORBIDE DINITRATE 20 MG TAB PO SCH ×3 (08:16→18:01)
--- NOTE | 2019-02-26 08:16 | NUR ---
ADMINISTERED ASPIRIN AND ISORDIL PER ORDER, PT IS AWARE OF INDICATIONS AND POTENTIAL SIDE EFFECTS. PT HAS ORDER FOR HEMODIALYSIS TODAY, BLOOD PRESSURE MEDICATIONS HELD AT THIS TIME, BP 143/87. PT HAS NO SIGNS OF DISTRESS AT THIS TIME.
[2019-02-26] MEDS: NIFEdipine 60 MG TABER PO SCH (08:47)
--- NOTE | 2019-02-26 08:47 | NUR ---
PER [facility], DIALYSIS NURSE WILL COME AT 1000 AM TODAY. WILL CONTINUE TO FOLLOW-UP.
[2019-02-26] MEDS: cloNIDine 0.1 MG TAB PO SCH ×2 (08:48→21:24)
[2019-02-26] MEDS: CARVEDILOL 6.25 MG TAB PO SCH ×2 (08:48→21:23)
--- NOTE | 2019-02-26 10:15 | NUR ---
PT STATES "I ONLY HAVE A LITTLE BIT OF PAIN, LIKE A 210". NO SIGNS OF DISTRESS AT THIS TIME.
--- NOTE | 2019-02-26 10:45 | NUR ---
DIALYSIS STARTED AT THIS TIME, NURSE AT BEDSIDE.
[2019-02-26] MEDS ORDERED: INFLUENZA VACCINE QUAD 0.5 ML SYR IMVAC PRN (11:00)
--- NOTE | 2019-02-26 12:04 | NUR ---
PT STATES "I HAVE NO GOTTEN FLU VACCINE BEFORE", ADMINISTERED FLU VACCINE TO LEFT DELTOID. PT HAS NO SIGNS OF DISTRESS AT THIS TIME.
--- NOTE | 2019-02-26 12:24 | NUR ---
Top Distribution Executive Note: I emailed hep panel information to [facility] coordinator Rebecca, phone number , fax number , [email or web address] per Rebecca's request. I called Rebecca to confirm she received hep panel information I faxed to her, no answer, left message.
--- NOTE | 2019-02-26 13:20 | NUR ---
Gliding Pilot Instructor Note: I called and spoke with [facility] coordinator Rebecca, phone number , fax number , [email or web address]. I requested an update on outpatient dialysis. She stated she is going to speak with Dolly from [facility] and call me back.
--- NOTE | 2019-02-26 14:00 | NUR ---
HEMODIALYSIS DONE, 2L OUTPUT. KOREY CATHETER DRESSING CHANGED BY HD NURSE. BLOOD PRESSURE AT 154/85 AND HR AT 88. WILL CONTINUE TO MONITOR .
--- NOTE | 2019-02-26 14:18 | NUR ---
Mercerizing Range Feeder Note: I called and spoke with [facility] coordinator Rebecca, phone number , fax number , [email or web address]. I requested an update on outpatient dialysis. She stated [facility] dialysis is still reviewing patient's information. Per Rebecca, she will call me back.
--- NOTE | 2019-02-26 16:10 | NUR ---
PT GIVEN APPLE JUICE AND SHANIA CRACKERS PER REQUEST. PT HAS NO C/O PAIN AT THIS TIME.
--- NOTE | 2019-02-26 17:10 | NUR ---
Stock Receiver Note: I received a call from [facility] coordinator Rebecca, phone number , fax number , [email or web address]. She stated patient's first outpatient dialysis treatment is available on Friday03/02/19 at 1:45pm at [facility], [address] [place] [address]. She provided me with patient's ongoing dialysis schedule, Tuesdays, , and Saturdays at 1:45pm at [facility]. I filled out [facility] Transportation Request Form and faxed it to [facility] Transportation Department fax number (this [facility] a [facility] and from dialysis clinic to snf). I also called [facility] Transportation Department , however, recording states office is closed, business hours are Friday-Friday from 8am-5pm. Per Rayray from [facility] , patient has been accepted and may go to room 123A upon discharge, accepting MD is .
--- NOTE | 2019-02-26 18:01 | NUR ---
ADMINISTERED ISORDIL PER ORDER, PT IS AWARE OF INDICATIONS AND POTENTIAL SIDE EFFECTS.
--- NOTE | 2019-02-26 19:35 | NUR ---
ENDORSED PT TO ROLLER MAN NURSE. PT HAS NO SIGNS OF DISTRESS AT THIS TIME.
--- NOTE | 2019-02-26 19:40 | NUR ---
RECEIVED REPORT FROM JACKIE RN AT BEDSIDE. PT AAOX4, NAD NOTED.
--- NOTE | 2019-02-26 23:30 | NUR ---
MED PASS DONE. SHIFT ASSESSMENT COMPLETED. PT ATE A SNACK, AT PRESENT RESTING QUIETLY VOICING NO C/O PAIN OR DISCOMFORT.
--- NOTE | 2019-02-27 03:20 | NUR ---
ON ROUNDS PT ASLEEP, SNORING. NAD NOTED. ON MONITOR SR W/ T WAVE DEPRESSION.
[2019-02-27 04:20] VITALS: BP 167/100
[2019-02-27] MEDS: hydrALAZINE 25 MG TAB PO SCH ×2 (06:06→13:38)
--- NOTE | 2019-02-27 07:20 | NUR ---
REPORT TO AM RN. PT ASLEEP AT PRESENT. BP RETAKEN AT 0700 W/ VERY LITTLE CHANGE 165/98, APPRESOLINE IV WAS INEFFECTIVE, PT STATES THIS IS A NORM FOR HIM; DISCUSSED MEDS W/ ONCOMING RN, PT HAS SCHEDULED AM BP MEDS THAT CAN BE ADMINISTERED NOW. PT REMAINS ASYMPTOMATIC DESPITE HIGH BP, NAD NOTED.
[2019-02-27 08:00] VITALS: BP 174/101
[2019-02-27] MEDS: ASPIRIN 81 MG TAB.CHEW PO SCH (08:18)
[2019-02-27] MEDS: NIFEdipine 60 MG TABER PO SCH (08:18)
[2019-02-27 08:36] LABS: BASOPHILS % (AUTO) 0.4 % (0.0-2.0); EOSINOPHILS % (AUTO) 0.9 % (0.0-4.0); LYMPHOCYTES # (AUTO) 1.2 K/uL (2.0-11.5); MEAN CORPUSCULAR HEMOGLOBIN 31 pg (27-31); MEAN CORPUSCULAR HGB CONC 33 g/dL (33-37); MEAN CORPUSCULAR VOLUME 94.5 fL (80-94); MONOCYTES # (AUTO) 0.5 K/uL (0.8-1.0); MONOCYTES % (AUTO) 9.1 % (1.7-9.3); NEUTROPHILS # (AUTO) 3.6 K/uL (1.8-7.7); NEUTROPHILS % (AUTO) 67.6 % (42.2-75.2); PLATELET COUNT (AUTO) 295 K/uL (140-450); RED CELL DISTRIBUTION WIDTH 13.7 % (11.6-13.7); WHITE BLOOD COUNT (AUTO) 5.4 K/uL (4.8-10.8)
[2019-02-27] MEDS: CARVEDILOL 6.25 MG TAB PO SCH (09:00)
[2019-02-27] MEDS: cloNIDine 0.1 MG TAB PO SCH (09:00)
[2019-02-27 09:57] LABS: ANION GAP 13.7 (8-16); CARBON DIOXIDE 24.6 mmol/L (21-32); POTASSIUM 4.3 mmol/L (3.5-5.1)
[2019-02-27 09:58] LABS: ALBUMIN 2.7 g/dL (3.4-5.0); CREATININE 3.3 mg/dL (0.7-1.3); TOTAL BILIRUBIN 0.7 mg/dL (0.0-1.0)
--- NOTE | 2019-02-27 11:34 | NUR ---
SPOKE WITH DR. CARI DELA CRUZ (FOR DR. GIBBONS) REGARDING PT;S NEXT HD SCHEDULE. PER DR. DELA CRUZ, PT CAN GO TO SNF TODAY THEN HAVE HIS FIRST HD SCHEDULE OUT PT ON FRIDAY. CHRISTIANO NARANJO MADE AWARE AND STATED SHE WILL CALL EVE CHOPRA.
--- NOTE | 2019-02-27 12:01 | NUR ---
Extension Associate Note: I spoke with Ariana from [facility] / . I informed Ariana patient's first outpatient dialysis treatment is on Friday03/02/19 at 1:45pm at [facility], [address] [place] [address] and told her patient's ongoing dialysis schedule will be on Tuesdays, , and Saturdays at 1:45pm at [facility]. I explained to her that [facility] Transportation Request form has been faxed to [facility] Transportation Department fax number (this is a request for transportation from snf to dialysis clinic and from dialysis clinic to snf). However, I told her transportation request from [facility] (from snf to dialysis clinic and from dialysis clinic to snf) has not been finalized since [facility] Transportation Department office is closed on weekends, business hours are Friday-Friday from 8am-5pm. Per Ariana, [facility] staff will follow with [facility] transportation request and patient can be transferred to their facility today, room 123A, accepting MD is , Charge Nurse Tejal made aware. I met with patient at bedside. Patient is in agreement with transfer to [facility] today and is aware his first outpatient dialysis treatment will be on Friday03/02/19 at 1:45pm at [facility].
--- NOTE | 2019-02-27 12:48 | NUR ---
SET UP TRANSPORTATION BY [employer], SPOKE WITH MAYRA. [facility]HABIL[facility] TEAM LEAD TIME WILL BY AT 5 PM. NANCY ASSIGNED MADE AWARE.
[2019-02-27] MEDS: ISOSORBIDE DINITRATE 20 MG TAB PO SCH (13:38)
[2019-03-02] MEDS ORDERED: cloNIDine-TTS3 0.3 MG/24 HR 1 EA PATCH TD SCH (09:00)
== END 2019-02-27 17:05 | DRG 466 ==
LOC: MED 12:31 → MTU 15:37
PROVIDERS: ADMIT Internal Medicine Pulmonary Disease; ATTEND Internal Medicine Pulmonary Disease
PROC: 5A1D70Z Performance of Urinary Filtration, Intermittent, Less than 6 Hours Per Day (ICD-10-PCS; principal; 2019-02-24)
PROC: 3E03317 Introduction of Other Thrombolytic into Peripheral Vein, Percutaneous Approach (ICD-10-PCS; 2019-02-24)
PROC: 5A1D70Z Performance of Urinary Filtration, Intermittent, Less than 6 Hours Per Day (ICD-10-PCS; 2019-02-26)
DX: T82.41XA Breakdown (mechanical) of vascular dialysis catheter, initial encounter (principal); I12.0 Hypertensive chronic kidney disease with stage 5 chronic kidney disease or end stage renal disease; N17.9 Acute kidney failure, unspecified; E87.5 Hyperkalemia; E87.1 Hypo-osmolality and hyponatremia; N18.6 End stage renal disease; I16.0 Hypertensive urgency; E66.3 Overweight; D64.9 Anemia, unspecified; Z91.19 Patient's noncompliance with other medical treatment and regimen; E78.5 Hyperlipidemia, unspecified; Z59.0 Homelessness; Y65.8 Other specified misadventures during surgical and medical care; Y92.89 Other specified places as the place of occurrence of the external cause; Z91.15 Patient's noncompliance with renal dialysis; Z99.2 Dependence on renal dialysis; Z68.28 Body mass index [BMI] 28.0-28.9, adult
CPT/HCPCS: 36415; 71045; 80053; 81001; 83690; 84100; 84484; 85025; 85610; 85730; 86592; 86704; 86706; 86708; 86709; 86803; 87081; 87340; 90935; 93005; 96374; 96375; 96376; 97110; 97116; 97161-GP; 97530; 99291; J0360; J1644; J1940; J2060; J2270; J2405; J2997; J3490; J7030; Q0092

== ENCOUNTER 2019-05-24 18:16 | Inpatient (IN) | payer OTHER ==
[~2019-05-24] VITALS: Ht 177.8 cm; Wt 94.8 kg
[2019-05-24 18:16] VITALS: BP 222/156
[~2019-05-24 18:16] MED LIST changes: +CARV6.252 PO; +HYDR-4420 PO; +ISOS20TA13 PO
--- NOTE | 2019-05-24 18:16 | NUR ---
LAKSHMI FIGUEROA ALS TO ER BED 04
[2019-05-24] MEDS ORDERED: ALBUTEROL SULFATE/IPRATROPIU 3 ML SOL IH ONE (18:20)
[2019-05-24] MEDS ORDERED: NITROGLYCERIN 2% 1 GM PKT TP ONE (18:20)
[2019-05-24] MEDS ORDERED: FUROSEMIDE 100 MG/10 ML VIAL IVP ONE (18:20)
--- NOTE | 2019-05-24 18:26 | NUR ---
HOMELESS.BIBA FOUND IN FRONT OF A RICH IN THE BOX WITH C/O CHEST PAIN TO LEFT CHEST UNDER BREAST, 10/10 NON RADIATING STABBING PAIN. HX HTN, RENAL FAILURE, DIALYSIS (//FRI) LAST TX 1 MONTH AGO, DIALYSIS PORT RIGHT UPPER CHEST. PATIENT STATES PAIN OF 10/10 AT THIS TIME. PATIENT POSITIONED FOR COMFORT; HOB ELEVATED; BEDRAILS UP X2; BED DOWN. ER MD MADE AWARE OF PT STATUS.
--- NOTE | 2019-05-24 18:31 | NUR ---
X RAY AT BEDSIDE.
[2019-05-24] MEDS ORDERED: hydrALAZINE 20 MG/ML VIAL IVP ONE (18:35)
[2019-05-24] MEDS ORDERED: ENALAPRILAT 2.5 MG/2 ML VIAL IVP ONE (18:35)
[2019-05-24 18:51] LABS: BASOPHILS % (AUTO) 0.9 % (0.0-2.0); HEMATOCRIT 37.9 % (36-52); HEMOGLOBIN 12.2 g/dL (12.0-18.0); LYMPHOCYTES # (AUTO) 1.4 K/uL (2.0-11.5); LYMPHOCYTES % (AUTO) 26.1 % (20.5-51.1); MEAN CORPUSCULAR HEMOGLOBIN 30 pg (27-31); MEAN CORPUSCULAR HGB CONC 32 g/dL (33-37); MEAN CORPUSCULAR VOLUME 94.4 fL (80-94); MONOCYTES # (AUTO) 0.2 K/uL (0.8-1.0); MONOCYTES % (AUTO) 4.3 % (1.7-9.3); NEUTROPHILS # (AUTO) 3.7 K/uL (1.8-7.7); NEUTROPHILS % (AUTO) 68.7 % (42.2-75.2); PLATELET COUNT (AUTO) 328 K/uL (140-450); RED BLOOD CELL COUNT(AUTO) 4.02 MIL/uL (4.20-6.10); RED CELL DISTRIBUTION WIDTH 16.2 % (11.6-13.7); WHITE BLOOD COUNT (AUTO) 5.3 K/uL (4.8-10.8)
[2019-05-24 19:07] LABS: PROTHROMBIN TIME 11.2 secs (10.8-13.4)
--- NOTE | 2019-05-24 19:11 | NUR ---
Pt report given to SUZETTE NAIK. Transfer of care at this time.
[2019-05-24 19:13] LABS: ALBUMIN 3.2 g/dL (3.4-5.0); ANION GAP 25.7 (8-16); CARBON DIOXIDE 16.1 mmol/L (21-32); TOTAL BILIRUBIN 2.3 mg/dL (0.0-1.0)
[2019-05-24 19:17] LABS: CREATININE 6.4 mg/dL (0.7-1.3); POTASSIUM 5.8 mmol/L (3.5-5.1)
[2019-05-24] MEDS ORDERED: SODIUM POLYSTYRENE 15 GM/60 ML UDBTL PR ONE (19:45)
[2019-05-24] MEDS ORDERED: SODIUM BICARBONATE 8.4% PFS 50 MEQ/50 ML SYR IVP ONE (19:45)
[2019-05-24] MEDS ORDERED: ALBUTEROL 0.083% 2.5 MG/3 ML NEBU INH ONE (19:45)
[2019-05-24] MEDS ORDERED: LORazepam 2 MG/ML VIAL IVP PRN (20:20)
[2019-05-24] MEDS ORDERED: ALBUTEROL 0.083% 2.5 MG/3 ML NEBU INH PRN (20:20)
[2019-05-24] MEDS ORDERED: MORPHINE SULFATE 4 MG/ML SYR IVP PRN (20:20)
[2019-05-24] MEDS ORDERED: ONDANSETRON 4 MG/2 ML VIAL IVP PRN (20:20)
[2019-05-24 21:26] VITALS: BP 182/105
--- NOTE | 2019-05-24 21:26 | NUR ---
PT ARRIVED AT UNIT VIA GURNEY, PT STABLE, NO DISTRESS NOTED, RECEIVED BEDSIDE REPORT FROM ED NURSE SUZETTE NAIK, IV TO L AND R HAND 22G, SL PATENT INTACT, PT HAS DIALYSIS CATH TO R UPPER CHEST, PT ON 2LPM O2 VIA NC, NO SOB NOTED, INITIAL ASSESSMENT DONE, ALL SAFETY PRECAUTION MET, PT BP 182/105, NOTED HTN MEDICATION ORDERED PER MD, WILL MEDICATE. PT STATED HAVING GENERALIZED PAIN, WILL MEDICATE, PT RESTING, NO DISTRESS NOTED, ORIENT PT TO CALL LIGHT AND ROOM, PT STATED UNDERSTANDING. WILL CONTINUE TO MONITOR.
--- NOTE | 2019-05-24 21:40 | NUR ---
PT ADMITTED TO [facility] RM 117. TRANSFERRED PT VIA [facility] WITH [facility] EMT; STABLE CONDITION. REPORT GIVEN TO ALIDA NAIK, TRANSFER OF CARE AT THIS TIME.
[2019-05-24] MEDS: hydrALAZINE 25 MG TAB PO SCH (22:04)
[2019-05-24] MEDS: HYDROcodone/APAP 5/325 MG 1 TAB TAB PO PRN (22:04)
[2019-05-24] MEDS: cloNIDine 0.1 MG TAB PO SCH (22:05)
[2019-05-24] MEDS: CARVEDILOL 6.25 MG TAB PO SCH (22:05)
--- NOTE | 2019-05-24 22:05 | NUR ---
DUE MEDICATIONS ADMINISTERED, PT TOLERATED WELL, PAIN MEDICATION ADMINISTERED, PT TOLERATED WELL, CALL LIGHT WITHIN REACH, WILL CONTINUE TO MONITOR.
--- NOTE | 2019-05-24 23:35 | NUR ---
CHECKED PT, PT SLEEPING, NO DISTRESS NOTED, V/S TAKEN, WNL, CALL LIGHT WITHIN REACH, WILL CONTINUE TO MONITOR.
[2019-05-25] VITALS: BP 144/108
[2019-05-25 03:20] LABS: BASOPHILS % (AUTO) 0.8 % (0.0-2.0); EOSINOPHILS % (AUTO) 0.4 % (0.0-4.0); LYMPHOCYTES # (AUTO) 1.5 K/uL (2.0-11.5); LYMPHOCYTES % (AUTO) 31.2 % (20.5-51.1); MEAN CORPUSCULAR HEMOGLOBIN 30 pg (27-31); MEAN CORPUSCULAR HGB CONC 33 g/dL (33-37); MEAN CORPUSCULAR VOLUME 91.7 fL (80-94); MONOCYTES # (AUTO) 0.3 K/uL (0.8-1.0); MONOCYTES % (AUTO) 5.6 % (1.7-9.3); PLATELET COUNT (AUTO) 286 K/uL (140-450); RED BLOOD CELL COUNT(AUTO) 3.93 MIL/uL (4.20-6.10); WHITE BLOOD COUNT (AUTO) 4.9 K/uL (4.8-10.8)
--- NOTE | 2019-05-25 03:31 | NUR ---
CALLED [facility] DIALYSIS NURSE FOR ORDER OF HEMODIALYSIS FOR TODAY MORNING, NURSE STATED UNDERSTANDING.
[2019-05-25 04:00] VITALS: BP 176/112
[2019-05-25] MEDS: hydrALAZINE 25 MG TAB PO SCH ×3 (05:15→21:00)
--- NOTE | 2019-05-25 05:20 | NUR ---
PAGED DR. HOBSON, MANGLE ROLL OPERATOR FOR [facility], AWAITING FOR CALL BACK.
--- NOTE | 2019-05-25 06:39 | NUR ---
RECHECKED BP 155/83 HR 91, PT SLEEPING, NO DISTRESS NOTED, CALL LIGHT WITHIN REACH, WILL CONTINUE TO MONITOR.
--- NOTE | 2019-05-25 07:33 | NUR ---
SHIFT REPORT RECEIVED FROM CANDY WRAPPING MACHINE OPERATOR NURSE. PT IS IN BED SLEEPING AT THIS TIME. NO DISTRESS NOTED. CALL LIGHT IN REACH.
[2019-05-25 08:00] VITALS: BP 165/97
[2019-05-25] MEDS: NIFEdipine 60 MG TABER PO SCH (08:16)
[2019-05-25] MEDS: CARVEDILOL 6.25 MG TAB PO SCH ×2 (08:16→21:00)
[2019-05-25] MEDS: cloNIDine 0.1 MG TAB PO SCH ×2 (08:17→21:00)
[2019-05-25] MEDS: LISINOPRIL 20 MG TAB PO SCH (08:17)
[2019-05-25] MEDS: ISOSORBIDE DINITRATE 20 MG TAB PO SCH ×3 (08:18→17:44)
[2019-05-25] MEDS: ENOXAPARIN 30 MG/0.3 ML SYR SUBQ SCH (08:19)
--- NOTE | 2019-05-25 08:40 | NUR ---
PATIENT HAS BEEN SCREENED AND CATEGORIZED HIGH NUTRITION RISK. PATIENT WILL BE SEEN WITHIN 1-2 DAYS OF ADMISSION. 05/25/19-05/26/[address]
--- NOTE | 2019-05-25 09:47 | NUR ---
PT IS RESTING IN BED. NO DISTRESS NOTED. REASSESSED VITAL SIGNS IN NORMAL LEVELS. CALL LIGHT IN REACH.
--- NOTE | 2019-05-25 11:07 | NUR ---
Deputy Manager Note: Patient is a 54-year-old male admitted for accelerated HTN. Patient has PMHX of hypertension and renal disease. Patient was admitted from home. SW met with patient at bedside to verify demographics, but patient was asleep and refused assessment. SW will follow up as needed. Addendum: 05/28/19 at 1515 by Benito Butts Basic Screen: Yes High Risk DC Screen Yes Name: LILLIANA RODRIGUES [place] Relationship: SISTER Pre-Admission Living Arrangements: Other Other: HOMELESS Prior ADL Independent Current Home Health Name/Tel: N/A Current /02 Name/Tel: N/A Current Hospice Name/Tel: N/A Current Dialysis Name/Tel: N/A Healthcare Decision Maker: Patient Advance Directive No - REFUSED Physician Orders for Life Sustaining Treatment Form No Patient/Family Have Educational Needs No Information Taught: Community Resources Person Taught: Patient Teaching Tools: Verbal Factors Affecting Learning: None Participation Level: Active Evaluation: Verbalizes Understanding Needs Additional Education: No Discipline: Case Mgt/Social Svcs Tentative Discharge Plan/Destination: No Needs Identified Will require assistance post discharge: No Referred to Home Care Giver: No Tentative Discharge Plan Summary: Patient is a 54-year-old male admitted for accelerated HTN. Patient has PMHX of hypertension, hx of substance abuse, ESRD, and noncompliant for hemodialysis. Patient is homeless. SW met with patient at bedside to verify demographics. Patient stated that he is in the process of applying for disability but receives no government aid. Patient stated he has a mental health history of depression and schizophrenia. Patient stated that he just informed his sister Lilliana Rodrigues [phone] that he was homeless. SW asked patient if his sister is willing to assist him. SW contacted Lilliana Rodrigues [phone] and she stated she is unable to assist. Lilliana provided another sister's contact information Dolly Rodrigues [phone], but patient lives in [place]. SW contacted Dolly Rodrigues and left voice mail. SW provided homeless resources to patient. SW will follow up as needed. Signature: ZOE Luke Date: May 28, 2019 Time: 15:13
[2019-05-25 12:00] VITALS: BP 143/89
--- NOTE | 2019-05-25 12:00 | NUR ---
PT IS ON DIALYSIS AT THIS TIME. VITALS WITHIN NORMAL LEVELS. DIALYSIS NURSE BY BEDSIDE. NO DISTRESS NOTED. NO COMPLAINS OF PAIN.
--- NOTE | 2019-05-25 14:00 | NUR ---
1300 HRS MEDICATION NOT GIVEN BECAUSE PATIENT IS ON DIALYSIS. PER DIALYSIS NURSE REQUESTED NOT TO GIVE MEDICATION AT THIS TIME.
--- NOTE | 2019-05-25 14:06 | NUR ---
CANELO RECOMMENDED RENAL DIET, DR. DIOP VERBALIZED AGREEMENT OF RENAL DIET CHANGE. GUMARO SERNA WAS ALSO MADE AWARE OF PT NEEDING RENAL DIET.
--- NOTE | 2019-05-25 15:00 | NUR ---
PT COMPLETE. PER DIALYSIS NURSE 2500 ML OF FLUID WAS REMOVED. VITAL SIGNS WERE STABLE DURING DIALYSIS. NO DISTRESS NOTED. CALL LIGHT IN REACH.
--- NOTE | 2019-05-25 15:56 | NUR ---
05/25/19 RD INITIAL ASSESSMENT COMPLETED PLEASE REFER TO NUTRITION ASSESSMENT UNDER CARE ACTIVITY FOR ESTIMATED NUTRITIONAL NEEDS. 1. RECOMMEND 2 GM NA, RENAL DIET TOLERATED 2. NUTRITION EDUCATION WAS DECLINED 3. RD TO FOLLOW-UP 3-5 DAYS, MODERATE RISK KEITH CHANDLER, RD
[2019-05-25 16:00] VITALS: BP 108/70
--- NOTE | 2019-05-25 16:58 | NUR ---
PT IS RESTING IN BED AT THIS TIME. NO DISTRESS NOTED. BLOOD PRESSURE SIGNS NOTED AT 1645 IS WITHIN NORMAL VALUES AT 126/77. CALL LIGHT IN REACH.
--- NOTE | 2019-05-25 19:10 | NUR ---
RECEIVED BEDSIDE REPORT FROM DAY SHIFT NURSE. PATIENT IS AWAKE, ALERT, AND COOPERATIVE. RESPIRATION EVEN UNLABORED ON ROOM AIR. NO DISTRESS NOTED. DIALYSIS PORT NOTED ON THE RIGHT UPPER CHEST. IV PATENT AND INTACT. PLAN OF CARE WAS DISCUSSED. ALL SAFETY MEASURES IN PLACE. BED IS AT LOW POSITION. CALL LIGHT WITHIN REACH AND VERBALIZES ITS USE. WILL CONTINUE TO MONITOR.
--- NOTE | 2019-05-25 19:17 | NUR ---
SHIFT REPORT GIVEN TO INJECTION MOULDING MACHINE OPERATOR NURSE. PT IS IN BED IN STABLE CONDITION. NO DISTRESS NOTED. CALL LIGHT IN REACH.
[2019-05-25 20:00] VITALS: BP 97/60
--- NOTE | 2019-05-25 20:00 | NUR ---
INITIAL ASSESSMENT DONE. VITALS WERE TAKEN. PATIENT BP M97/60 HR 94. PATIENT IN STABLE CONDITION. WILL CONTINUE TO MONITOR.
--- NOTE | 2019-05-25 21:00 | NUR ---
ALL SCHEDULED BP MEDS WERE HOLD PER PARAMETER. PATIENT BP 97/60 HR 94. WILL CONTINUE TO MONITOR.
--- NOTE | 2019-05-25 23:50 | NUR ---
VITALS WERE TAKEN. PATIENT IN STABLE CONDITION. NO DISTRESS NOTED. WILL CONTINUE TO MONITOR.
[2019-05-26] VITALS: BP 125/74
--- NOTE | 2019-05-26 01:20 | NUR ---
CHECKED PATIENT. PATIENT SLEEPING RESPIRATION EVEN UNLABORED ON ROOM AIR. NO DISTRESS NOTED. WILL CONTINUE TO MONITOR.
[2019-05-26 04:00] VITALS: BP 129/90
--- NOTE | 2019-05-26 04:05 | NUR ---
VITALS WERE TAKEN. PATIENT IN STABLE CONDITION. NO DISTRESS NOTED. WILL CONTINUE TO MONITOR.
[2019-05-26] MEDS: hydrALAZINE 25 MG TAB PO SCH ×3 (05:02→20:55)
--- NOTE | 2019-05-26 07:21 | NUR ---
ENDORSED PATIENT TO DAY SHIFT NURSE. PATIENT IN STABLE CONDITION.
--- NOTE | 2019-05-26 07:30 | NUR ---
RECEIVED PT AAOX4. NO SOB NOTED. NO C/O PAIN AT THIS TIME. IV TO RT AND LEFT HAND PATENT AND INTACT. RT CHEST HD CATHETER SITE CLEAN DRY AND INTACT. CHEST CLEAR. ABDOMEN SOFT, BOWEL SOUNDS PRESENT. INSTRUCTED PT TO CALL FOR ASSISTANCE, CALL LIGHT WITHIN REACH, VERBALIZED UNDERSTANDING.
[2019-05-26 08:00] VITALS: BP 124/77
--- NOTE | 2019-05-26 08:00 | NUR ---
NOTIFIED [facility] FOR HD ORDER FOR TODAY.
[2019-05-26] MEDS: NIFEdipine 60 MG TABER PO SCH (09:00)
[2019-05-26] MEDS: CARVEDILOL 6.25 MG TAB PO SCH ×2 (09:00→20:54)
[2019-05-26] MEDS: cloNIDine 0.1 MG TAB PO SCH ×2 (09:00→20:54)
[2019-05-26] MEDS: ISOSORBIDE DINITRATE 20 MG TAB PO SCH ×3 (09:00→17:16)
[2019-05-26] MEDS: LISINOPRIL 20 MG TAB PO SCH (09:00)
--- NOTE | 2019-05-26 09:30 | NUR ---
BLOOD PRESSURE MEDS HELD. PT IS FOR HD TODAY. PT'S BP AND HR ON THE NORMAL RANGE. PT VERBALIZED UNDERSTANDING.
[2019-05-26] MEDS: ENOXAPARIN 30 MG/0.3 ML SYR SUBQ SCH (09:58)
--- NOTE | 2019-05-26 10:17 | NUR ---
RECEIVED PT AAOX4. NO SOB NOTED. NO C/O PAIN AT THIS TIME. IV TO RT AND LEFT HAND PATENT AND INTACT. RT CHEST HD CATHETER SITE CLEAN DRY AND INTACT. CHEST CLEAR. ABDOMEN SOFT, BOWEL SOUNDS PRESENT. INSTRUCTED PT TO CALL FOR ASSISTANCE, CALL LIGHT WITHIN REACH, VERBALIZED UNDERSTANDING. Addendum: 05/26/19 at 1020 by Tejal Ackerman RN DISREGARD ABOVE NOTES, DUPLICATE ENTRY.
[2019-05-26 12:00] VITALS: BP 149/79
--- NOTE | 2019-05-26 13:00 | NUR ---
10,000 UNITS OF HEPARIN IS GIVEN TO DIALYSIS NURSE FOR PATIENT'S DIALYSIS.
--- NOTE | 2019-05-26 15:31 | NUR ---
RECEIVED PATIENT FROM [facility] FOR CONTINUITY OF CARE
[2019-05-26 16:00] VITALS: BP 169/94
--- NOTE | 2019-05-26 17:00 | NUR ---
DIALYSIS DONE. OUTPUT OF 2.5L
--- NOTE | 2019-05-26 17:17 | NUR ---
GIVEN ISORDIL FOR CHEST PAIN. EXPLAINED TO PATIENT MED. PATIENT VERBALIZED UNDERSTANDING. BED IN LOW POSITION. CALL LIGHT IS WITHIN REACH. WILL CONTINUE TO MONITOR
--- NOTE | 2019-05-26 18:47 | NUR ---
PATIENT IS RESTING AT THIS TIME. NO SIGNS OF DISTRESS. DENIES CHEST PAIN. WILL CONTINUE TO MONITOR
--- NOTE | 2019-05-26 19:20 | NUR ---
ENDORSED PATIENT TO EDITORIAL WRITER NURSE FOR CONTINUITY OF CARE. PATIENT IS IN STABLE CONDITION
--- NOTE | 2019-05-26 19:24 | NUR ---
RECEIVED BEDSIDE REPORT FROM DAY SHIFT NURSE. PATIENT IS AWAKE, ALERT, AND COOPERATIVE. RESPIRATION EVEN UNLABORED ON ROOM AIR. NO DISTRESS NOTED. SKIN IS WARM AND DRY. IV PATENT AND INTACT. SALINE LOCKED. RIGHT UPPER CHEST DIALYSIS PORT NOTED. PLAN OF CARE WAS DISCUSSED. ALL SAFETY MEASURES IN PLACE. BED IS AT LOW POSITION. CALL LIGHT WITHIN REACH AND VERBALIZES ITS USE. WILL CONTINUE TO MONITOR.
[2019-05-26 20:00] VITALS: BP 130/85
--- NOTE | 2019-05-26 20:00 | NUR ---
INITIAL ASSESSMENT DONE. VITALS WERE TAKEN. PATIENT IN STABLE CONDITION. DENIES ANY PAIN. WILL CONTINUE TO MONITOR.
--- NOTE | 2019-05-26 20:20 | NUR ---
PATIENT HAD A ST DEPRESSION FOR COUPLE OF MINUTES. ASSESSED PATIENT. PATIENT DENIES ANY PAIN OR DISCOMFORT. CHECKED VITALS. VITALS STABLE. WILL CONTINUE TO MONITOR.
--- NOTE | 2019-05-26 20:30 | NUR ---
ALL SCHEDULED MEDS WERE GIVEN PER ORDER. NO ASE NOTED. WILL CONTINUE TO MONITOR
--- NOTE | 2019-05-26 21:45 | NUR ---
CHECKED PATIENT. PATIENT SLEEPING RESPIRATION EVEN UNLABORED ON ROOM AIR. NO DISTRESS NOTED. WILL CONTINUE TO MONITOR.
[2019-05-27] VITALS: BP 110/60
--- NOTE | 2019-05-27 | NUR ---
VITALS WERE TAKEN. PATIENT IN STABLE CONDITION. NO DISTRESS NOTED. WILL CONTINUE TO MONITOR.
--- NOTE | 2019-05-27 02:10 | NUR ---
CHECKED PATIENT. PATIENT SLEEPING RESPIRATION EVEN UNLABORED ON ROOM AIR. NO DISTRESS NOTED. WILL CONTINUE TO MONITOR.
[2019-05-27 04:00] VITALS: BP 165/95
--- NOTE | 2019-05-27 04:15 | NUR ---
VITALS WERE TAKEN. PATIENT IN STABLE CONDITION. NO DISTRESS NOTED. WILL CONTINUE TO MONITOR.
[2019-05-27] MEDS: hydrALAZINE 25 MG TAB PO SCH ×3 (04:20→20:58)
[2019-05-27 06:51] LABS: BASOPHILS % (AUTO) 0.3 % (0.0-2.0); EOSINOPHILS % (AUTO) 0.1 % (0.0-4.0); HEMATOCRIT 36.2 % (36-52); HEMOGLOBIN 11.9 g/dL (12.0-18.0); LYMPHOCYTES # (AUTO) 1.1 K/uL (2.0-11.5); LYMPHOCYTES % (AUTO) 29.8 % (20.5-51.1); MEAN CORPUSCULAR HEMOGLOBIN 30 pg (27-31); MEAN CORPUSCULAR HGB CONC 33 g/dL (33-37); MEAN CORPUSCULAR VOLUME 92.3 fL (80-94); MONOCYTES # (AUTO) 0.4 K/uL (0.8-1.0); MONOCYTES % (AUTO) 10.2 % (1.7-9.3); NEUTROPHILS # (AUTO) 2.3 K/uL (1.8-7.7); NEUTROPHILS % (AUTO) 59.6 % (42.2-75.2); PLATELET COUNT (AUTO) 253 K/uL (140-450); RED BLOOD CELL COUNT(AUTO) 3.91 MIL/uL (4.20-6.10); RED CELL DISTRIBUTION WIDTH 16.1 % (11.6-13.7); WHITE BLOOD COUNT (AUTO) 3.8 K/uL (4.8-10.8)
--- NOTE | 2019-05-27 07:11 | NUR ---
ENDORSED PATIENT TO DAY SHIFT NURSE. PATIENT IN STABLE CONDITION.
[2019-05-27 07:31] LABS: ALBUMIN 2.3 g/dL (3.4-5.0); ANION GAP 10.7 (8-16); CARBON DIOXIDE 27.4 mmol/L (21-32); CREATININE 3.9 mg/dL (0.7-1.3); PHOSPHORUS 3.2 mg/dL (2.5-4.9); POTASSIUM 3.1 mmol/L (3.5-5.1); TOTAL BILIRUBIN 0.8 mg/dL (0.0-1.0)
[2019-05-27 09:00] VITALS: BP 140/87
[2019-05-27] MEDS: ISOSORBIDE DINITRATE 20 MG TAB PO SCH ×3 (09:00→16:12)
[2019-05-27] MEDS: ENOXAPARIN 30 MG/0.3 ML SYR SUBQ SCH (09:00)
[2019-05-27] MEDS: LISINOPRIL 20 MG TAB PO SCH (09:00)
[2019-05-27] MEDS: cloNIDine 0.1 MG TAB PO SCH ×2 (09:00→21:00)
[2019-05-27] MEDS: NIFEdipine 60 MG TABER PO SCH (09:00)
[2019-05-27] MEDS: CARVEDILOL 6.25 MG TAB PO SCH ×2 (09:00→21:00)
--- NOTE | 2019-05-27 09:00 | NUR ---
RECEIVED PT FROM CHARGE NURSE KEISHA. PT SLEEPING IN BED DENIES S/S OF RESPIRATORY DISTRESS NOTED. PER CHARGE NURSE. PT WILL HAVE HD TODAY (HOLD 0900 MEDS ) AND PT HAD HD YESTERDAY. PT HAS HD ACCESS TO RIGHT UPPER CHEST. PT ON RA. INTRODUCED MYSELF, POC EXPLAINED AND NOTIFIED I WILL NOT GIVE HIM 0900 MEDS DUE TO HE WILL HAVE HD TODAY, PT VERBALIZED UNDERSTANDING. PT ABLE TO MAKE URINE AND USE URINAL, WILL CONTINUE TO MONITOR.
--- NOTE | 2019-05-27 10:30 | NUR ---
HD NURSE WILLIAM MORENO AT BEDSIDE.
[2019-05-27 12:00] VITALS: BP 146/88
--- NOTE | 2019-05-27 12:13 | NUR ---
DIALYSIS IN PROCESS. PT STATED HE IS FINE.
--- NOTE | 2019-05-27 13:38 | NUR ---
DC PLANNING 54 YRS OLD MALE PATIENT WAS ADMITTED WITH A DX OF ACCELERATED HTN, ESRD, HYPERKALEMIA AND ATYPICAL CHEST PAIN. PT HAS A HX OF ESRD HD ON DIALYSIS M- , NON COMPLIANT WITH DIALYSIS AND DRUG ABUSE. ADMINISTERED BP MEDS ,RENAL CONSULT FOR DIALYSIS. DC PLAN PT EVALUATION AND SNF EVAL . CONTACTED [facility] AND INFORMED THE SNF. CM TO FOLLOW Addendum: 05/27/19 at 1513 by Tiffanie Marquez CM DC PLANNING RECEIVED A CALL FROM [facility] SPOKE WITH YURI STATED THEY ARE UNABLE TO ACCEPT PT BECAUSE THEY ARE HAVING HARD TIME TO DISCHARGE HIM WHEN HE WAS THERE ON FAXED DULCE VAZQUEZ, [facility] , JOS[facility] SHEPPARD , [facility] AND [facility] . RECEIVED A CALL FROM DULCE DENIED PT BECAUSE OF HIGH RISK FOR MCC. CM TO FOLLOW Addendum: 05/27/19 at 1540 by Tiffanie Marquez CM DC PLANNING RECEIVED A CALL FROM [facility], [facility] AND [facility] SONG THERE ARE NO MALE BED AVAILABLE. CM TO FOLLOW. Addendum: 05/28/19 at 1243 by Tiffanie Marquez CM DC PLANNING CALLED [facility] SPOKE WITH MONICA , STATED TO FAX TO [facility] AND [facility] [phone] FAXED AND WILL FOLLOW UP Addendum: 05/28/19 at 1524 by Benito FLANNERY MARCELLA contacted patient's sister: Dolly Sibley [phone]. Per Dolly, patient tentatively will be able to stay with patient after discharge from SNF. Dolly provided address: [facility]. [address] [place] [address]. SW/PRIYANKA will follow up as needed. Addendum: 05/31/19 at 1500 by Tiffanie Marquez CM DC PLANNING CALLED [facility] [phone] SPOKE WITH MONICA MATHEW EXPLAIN THAT PATIENT UNABLE TO GET SNF TO ACCEPT PATIENT BECAUSE OF HOMELESSNESS AND REQUEST HELP FROM [facility] TO PLACE HIM IN THE RECUPERATIVE CARE, PER MONICA SHE WILL PASS IT ON TO THE DIFFICULT PLACEMENT DC ANESTHESIOLOGY PHYSICIAN, HOW EVER TO REQUEST AND FAX ANY OTHER FACILITIES.. FAXED TO [facility] [phone], [facility] [phone], [address] [facility] [phone] AND [facility] [phone]. PRIYANKA TO FOLLOW Addendum: 06/01/19 at 1647 by Tiffanie Marquez CM DC PLANNING FAXED TO [facility] [phone] SNF CALLED IZZY WILL REVIEW IT AND IF IEHP GIVES NELY WILL TAKE A PATIENT, CALLED MONICA BRADLEY NOTIFIED HER REGARDING THE NELY SHE WILL SUBMIT TO THE GRADER MEAT. FAXED THE PAPERWORK TO [facility] [phone] AND SPOKE WITH CRISTINA HISTORY CARD CLERK STATED AFTER THE DAYS MIGHT HAVE A PROBLEM WITH TRANSPORT FOR DIALYSIS. PROVIDE IE'S NUMBER AND WILL FOLLOW UP Addendum: 06/01/19 at 1652 by Tiffanie Marquez CM CALLED [facility] SPOKE WITH [facility] OSWALD MALE BED AVAILABLE AT THIS TIME. CM TO FOLLOW Addendum: 06/02/19 at 1547 by Rebecca Davies SS I faxed inquiries to the following snfs: [facility], [facility], [facility], [facility], [facility], and [facility]. Addendum: 06/02/19 at 1559 by Rebecca Davies SS Per Anel from [facility] , they do not have any male beds available at this time. Addendum: 06/02/19 at 2997 by Rebecca Davies SS Per Viviana from [facility] and [facility] , they do not have any male beds at either facility today, however, they anticipate having a bed available tomorrow at [facility] . Pending response from Madonna from [facility] . Addendum: 06/03/19 at 0903 by Rebecca Davies SS Late entry for 06/02/19: Long Peacock from [facility] , they do not have any male beds available at this time. Per Consumer Marketing Analyst Trudi from [facility] , their care coordinator is not available and requested I call back tomorrow 06/03/19. I called Ky from [facility] several times, no answer, left messages. Addendum: 06/03/19 at 1050 by Rebecca Davies SS Per Viviana Grant from [facility] , patient has been accepted and may go to room 22B, she stated she will need to have dialysis set up, transportation, and authorization from [facility], Silica Spray Mixer Tiffanie made aware. GUMARO Moreno will contact [facility]. Addendum: 06/03/19 at 1546 by Tiffanie Marquez CM DC PLANNING: PT IS ACCEPTED AT [facility] GOING TO ROOM 22B # TO GIVE REPORT [phone] TRANSPORT WITH [facility] [phone] SPOKE WITH MARY KAY SPECTACLE TRUER TIME 4:30 PM AND ARRANGED THE TRANSPORT FOR DIALYSIS AT [facility] SCHEDULED Friday SAT AT 1 :45 PM FAXED THE FORM TO [facility] [phone] Addendum: 06/03/19 at 1646 by Tiffanie Marquez CM DC PLANNING TRANSPORT FOR DIALYSIS AT [facility] ARRANGED WITH [facility] CALLED [phone] SPOKE WITH FRANKIE STATED THEY RECEIVE THE FAX AND WILL ARRANGE FOR THIS FRIDAY
--- NOTE | 2019-05-27 13:45 | NUR ---
DIALYSIS DONE. TOTAL OUTPUT 2500 CC PER DIALYSIS NURSE. PT TOLERATED WELL.
--- NOTE | 2019-05-27 13:45 | NUR ---
Heparin 10,000 units was given by dialysis nurse for HD ports.
[2019-05-27 16:00] VITALS: BP 147/89
--- NOTE | 2019-05-27 16:12 | NUR ---
PT SLEEPING IN BED, STATED HE IS FINE, NO S/S OF RESPIRATORY DISTRESS NOTED. DENIES PAIN.
[2019-05-27] MEDS ORDERED: POTASSIUM CHLORIDE 10 MEQ TABER PO SCH (16:38)
[2019-05-27] MEDS ORDERED: MAGNESIUM OXIDE 400 MG TAB PO SCH (16:42)
--- NOTE | 2019-05-27 18:00 | NUR ---
PT ATE 100 % DINNER TRAY. SLEEPING IN BED, DENIES DISCOMFORT.
--- NOTE | 2019-05-27 19:12 | NUR ---
ENDORSED TO PM SHIFT RN IN STABLE CONDITION.
--- NOTE | 2019-05-27 19:20 | NUR ---
RECIEVED PT AAOX4 , NID SL LOCKS INTACT AND PATENT , WITH HD ACCESS ON R CHEST ( PORT ) - NO S/SXS OF ACUTE DISTRESS NOTED AT THIS TIME . USES URINAL . DENIES ANY PAIN AT THIS TIME. POC DISCUSSED AND VERBALIZE UNDERSTANDING - CALL LIGHT WITHIN REACH . WILL CONT. TO MONITOR.
[2019-05-27 20:00] VITALS: BP 168/96
[2019-05-28] VITALS (7 sets, daily range): BP systolic 115–178; BP diastolic 73–100
--- NOTE | 2019-05-28 | NUR ---
MADE RIOUNDS - NO COMPLAIN MADE AT THIS TIME.
--- NOTE | 2019-05-28 04:00 | NUR ---
MADE ROUNDS - NO S/SXS OF ACUTE DISTRESS NOTED AT THIS TIME - CALL LIGHT WITHIN REACH
[2019-05-28] MEDS: hydrALAZINE 25 MG TAB PO SCH ×3 (05:25→20:06)
--- NOTE | 2019-05-28 06:00 | NUR ---
SLEEPING - CHEST RISE AND FALL EQUALLY.
[2019-05-28 06:07] LABS: HEPATITIS B SURFACE ANTIBODY Reactive (.); HEPATITIS B SURFACE ANTIGEN Negative (Negative)
--- NOTE | 2019-05-28 07:10 | NUR ---
ENDORSED TO AM SHIFT FOR CONT. OF CARE - ON STABLE CONDITION
--- NOTE | 2019-05-28 07:10 | NUR ---
RECEIVED REPORT FROM NIGHT NURSE. PATIENT IS IN BED, AWAKE, ALERT AND VERBALLY RESPONSIVE. RESPIRATION EVEN AND UNLABORED. NO S/S OF DISTRESS NOTED. IV INTACT AND PATENT TO RIGHT HAND AND LEFT HAND, SALINE LOCK. CALL LIGHT WITHIN REACH. PLANS OF CARE DISCUSSED. BED IN LOW POSITION. SAFETY MEASURES IN PLACE. Addendum: 05/28/19 at 0820 by Elidia Montgomery RN IN ADDITION TO NOTES: RECEIVED REPORT THAT PATIENT RECEIVED DIALYSIS 05/27/2019.
[2019-05-28] MEDS: HYDROcodone/APAP 5/325 MG 1 TAB TAB PO PRN (08:44)
[2019-05-28] MEDS: cloNIDine 0.1 MG TAB PO SCH ×2 (08:45→20:07)
[2019-05-28] MEDS: CARVEDILOL 6.25 MG TAB PO SCH ×2 (08:46→20:07)
[2019-05-28] MEDS: NIFEdipine 60 MG TABER PO SCH (08:46)
[2019-05-28] MEDS: LISINOPRIL 20 MG TAB PO SCH (08:46)
[2019-05-28] MEDS: ISOSORBIDE DINITRATE 20 MG TAB PO SCH ×3 (08:46→17:15)
[2019-05-28] MEDS: ENOXAPARIN 30 MG/0.3 ML SYR SUBQ SCH (08:49)
--- NOTE | 2019-05-28 09:10 | NUR ---
PT ALERT AND ORIENTED X4. NO S/S OF DISTRESS NOTED. BP MEDS GIVEN. WILL CONTINUE TO MONITOR.
[2019-05-28 09:42] LABS: BASOPHILS % (AUTO) 0.4 % (0.0-2.0); EOSINOPHILS % (AUTO) 0.2 % (0.0-4.0); HEMATOCRIT 38.6 % (36-52); HEMOGLOBIN 12.7 g/dL (12.0-18.0); LYMPHOCYTES % (AUTO) 21.2 % (20.5-51.1); MEAN CORPUSCULAR HEMOGLOBIN 31 pg (27-31); MEAN CORPUSCULAR HGB CONC 33 g/dL (33-37); MEAN CORPUSCULAR VOLUME 93.1 fL (80-94); MONOCYTES # (AUTO) 0.3 K/uL (0.8-1.0); NEUTROPHILS # (AUTO) 3.4 K/uL (1.8-7.7); NEUTROPHILS % (AUTO) 72.2 % (42.2-75.2); PLATELET COUNT (AUTO) 292 K/uL (140-450); RED BLOOD CELL COUNT(AUTO) 4.15 MIL/uL (4.20-6.10); RED CELL DISTRIBUTION WIDTH 16.6 % (11.6-13.7); WHITE BLOOD COUNT (AUTO) 4.7 K/uL (4.8-10.8)
[2019-05-28] MEDS ORDERED: CARV6.252 PO (09:53)
[2019-05-28 09:55] LABS: ANION GAP 11.6 (8-16); CARBON DIOXIDE 26.9 mmol/L (21-32); CREATININE 3.8 mg/dL (0.7-1.3); POTASSIUM 3.5 mmol/L (3.5-5.1)
--- NOTE | 2019-05-28 10:15 | NUR ---
BP REASSESSED 125/73, HR 92. PATIENT IS AAOX4. DENIES ANY PAIN OR DISCOMFORT. NO S/S OF DISTRESS NOTED. WILL CONTINUE TO MONITOR. CALL LIGHT WITHIN REACH.
--- NOTE | 2019-05-28 12:30 | NUR ---
PATIENT IS AAOX4, ABLE TO MAKE NEEDS KNOWN. PATIENT IS SCHEDULED FOR TRANSFER TO SNF TODAY, AWAITING FOR CASE MANAGEMENT UPDATE. PT REMAINS STABLE.
--- NOTE | 2019-05-28 14:30 | NUR ---
ROUNDS MADE. PATIENT IS AAOX4. DENIES ANY PAIN OR DISCOMFORT. NO S/S OF DISTRESS NOTED. CALL LIGHT WITHIN REACH.
--- NOTE | 2019-05-28 15:24 | NUR ---
Paving Inspector Note: SW contacted patient's sister: Dolly Sibley [phone]. Per Dolly, patient tentatively will be able to stay with patient after discharge from SNF. Dolly provided address: [address] [place] [address]. [address] [place] [address]. MARCELLA/PRIYANKA will follow up as needed.
--- NOTE | 2019-05-28 16:30 | NUR ---
PATIENT IS AWAKE IN BED, VERBALLY RESPONSIVE AND WATCHING TV. NO S/S OF DISTRESS NOTED. CALL LIGHT WITHIN REACH. SAFETY MEASURES IN PLACE.
--- NOTE | 2019-05-28 17:52 | NUR ---
PATIENT IS AWAKE IN BED, VERBALLY RESPONSIVE AND WATCHING TV. NO S/S OF DISTRESS NOTED. CALL LIGHT WITHIN REACH. SAFETY MEASURES IN PLACE.
--- NOTE | 2019-05-28 19:30 | NUR ---
RECIEVED PT AAOX4 , NID , NO COMPLAIN MADE . IV SITES INTACT AND PATENT . W/ HD ACCESS ON R CHEST . POC DISCUSSED AND VERBALIZE UNDERSTANDING . ON SAFETY PROTOCOL - WILL CONT TO MONITOR. - CALL LIGHT WITHIN REACH.
--- NOTE | 2019-05-28 19:30 | NUR ---
REPORT GIVEN TO NIGHT NURSE FOR CONTINUITY OF CARE. PATIENT IN STABLE CONDITION.
[2019-05-29] VITALS: BP 127/76
--- NOTE | 2019-05-29 00:45 | NUR ---
INFORMED [facility] ( [facility] ) ABOUT THE PT IS STILL HERE AND FOR SCHEDULED HD TODAY . SHE SAID OK.
[2019-05-29 04:00] VITALS: BP 150/90
--- NOTE | 2019-05-29 04:00 | NUR ---
MADE ROUNDS . NO COMPLAIN MADE AT THIS TIME. CALL LIGHT WITHIN REACH.
[2019-05-29] MEDS: hydrALAZINE 25 MG TAB PO SCH ×3 (05:46→21:33)
--- NOTE | 2019-05-29 06:43 | NUR ---
MADE ROUNDS . NO S/SXS OF ACUTE DISTRESS NOTED AT THIS TIME.
--- NOTE | 2019-05-29 07:15 | NUR ---
RECEIVED REPORT FROM SUPERVISOR WET END NURSE FOR CONTINUITY OF CARE. PT IN STABLE CONDITION. RESPIRATIONS EVEN AND UNLABORED. IV INTACT AND PATENT. SAFETY MEASURES IN PLACE. BED IN LOW POSITION. CALL LIGHT AT BEDSIDE. WILL CONTINUE TO MONITOR.
--- NOTE | 2019-05-29 07:24 | NUR ---
LEAVE MSG TO HD CENTER - REMINDING THEM ABOUT PT. SCHEDULED FOR HD TODAY .
[2019-05-29 08:00] VITALS: BP 158/92
[2019-05-29] MEDS: NIFEdipine 60 MG TABER PO SCH (09:00)
[2019-05-29] MEDS: cloNIDine 0.1 MG TAB PO SCH ×3 (09:00→23:05)
[2019-05-29] MEDS: CARVEDILOL 6.25 MG TAB PO SCH ×2 (09:00→21:35)
[2019-05-29] MEDS: ISOSORBIDE DINITRATE 20 MG TAB PO SCH ×3 (09:00→17:11)
[2019-05-29] MEDS: ENOXAPARIN 30 MG/0.3 ML SYR SUBQ SCH (09:00)
[2019-05-29] MEDS: LISINOPRIL 20 MG TAB PO SCH (09:00)
--- NOTE | 2019-05-29 09:30 | NUR ---
BOOT MAKER AT BEDSIDE. PT IN STABLE CONDITION. BED IN LOW POSITION. CALL LIGHT AT BEDSIDE. WILL CONTINUE TO MONITOR.
[2019-05-29 12:00] VITALS: BP 163/97
--- NOTE | 2019-05-29 12:35 | NUR ---
DIALYSIS COMPLETE. 2.5L OUT
--- NOTE | 2019-05-29 13:31 | NUR ---
GAVE ORDERED DUE MEDICATIONS. PT TOLERATED WELL. WILL CONTINUE TO MONITOR.
--- NOTE | 2019-05-29 15:01 | NUR ---
PT SLEEPING AT THIS TIME. RESPIRATIONS EVEN AND UNLABORED. BED IN LOW POSITION. CALL LIGHT AT BEDSIDE. WILL CONTINUE TO MONITOR.
[2019-05-29 16:00] VITALS: BP 141/92
--- NOTE | 2019-05-29 17:18 | NUR ---
05/29/19 RD FOLLOW UP COMPLETED PLEASE REFER TO NUTRITION ASSESSMENT UNDER CARE ACTIVITY FOR ESTIMATED NUTRITIONAL NEEDS. 1. CONTINUE RENAL DIET TOLERATE 2. NUTRITION EDUCATION WAS PROVIDED 3. RD TO FOLLOW-UP 5-7 DAYS, LOW RISK SHARMILA CHAIDEZ RD
--- NOTE | 2019-05-29 19:15 | NUR ---
GAVE REPORT TO PAYROLL COORDINATOR NURSE FOR CONTINUITY OF CARE. PT IN STABLE CONDITION.
--- NOTE | 2019-05-29 19:15 | NUR ---
RECEIVED REPORT FROM KARTIK RN DAYSHIFT NURSE AT BEDSIDE FOR CONTINUITY OF CARE, PT IN STABLE CONDITION.
[2019-05-29 20:00] VITALS: BP 153/96
--- NOTE | 2019-05-29 20:00 | NUR ---
PT IN BED, AOX4, SKIN INTACT. RIGHT UPPER CHEST HAS HD CATHETER INTACT AND ASYMPTOMATIC. V/S FOLLOWS: T 99.4 P 101 R 20 B/P 153/96 02 99% ON ROOM AIR. ALL REQUESTED NEEDS ATTENDED AND CALL MILAN IN REACH.
--- NOTE | 2019-05-29 20:59 | NUR ---
RECEIVED PT ON ROOM AIR WITH SP02 OF 98% AND CLEAR BREATH SOUNDS. NO RESPIRATORY DISTRESS NOTED AT THIS TIME. NO INDICATION FOR PRN HHN TX AT THIS TIME . WILL CONTINUE TO MONITOR PT
--- NOTE | 2019-05-29 21:00 | NUR ---
PT GIVEN DUE MEDS OF APRESOLINE, CATAPRES, AND COREG. WILL RE-EVALUATE B/P LATER, PT HAS NO C/O VOICED AT THIS TIME. BED ALARM ON , PT ENCOURAGED TO CALL FOR HELP, DUE TO PT SAYING HIS LEGS WERE WEAK. PT DENIES ANY PAIN AT THIS TIME.
--- NOTE | 2019-05-29 23:30 | NUR ---
RECHECK OF PT B/P IS 146/68 OTHER V/S FOLLOWS; T 98.4 P 92 R 20 02 985 ON ROOM AIR. PT WAS ASSISTED TO TOILET AND BACK, HE HAD A SMALL BM. WILL CONTINUE TO MONITOR B/P AND SAFETY. ALL UNIVERSAL PRECAUTIONS IN PLACE.
[2019-05-30] VITALS: BP 146/88
--- NOTE | 2019-05-30 01:00 | NUR ---
RECHECK OF PT B/P IS 160/86 P 94 . NO S/S OF PAIN OR DISTRESS NOTED.
[2019-05-30] MEDS: cloNIDine 0.1 MG TAB PO SCH ×4 (02:12→20:46)
--- NOTE | 2019-05-30 02:45 | NUR ---
RECEIVED REPORT FROM SAVANNA FOR CONTINUITY OF CARE,PT RESTING COMFORTABLY.
--- NOTE | 2019-05-30 02:45 | NUR ---
DUE TO CHANGE OF ASSGNMENT, REPORT GIVEN TO MANAGER INTEGRITY LINDA. PT SLEEPING IN BED NO S/S OF PAIN OR DISTRESS NOTED.
[2019-05-30 04:00] VITALS: BP 171/106
--- NOTE | 2019-05-30 04:00 | NUR ---
AWAKEN TO RECHECKED V/S, NO COMPLAINTS.
--- NOTE | 2019-05-30 04:00 | NUR ---
BP ELEVATED, ROUTINE BP WILL BE GIVEN.
[2019-05-30] MEDS: hydrALAZINE 25 MG TAB PO SCH ×3 (04:35→20:43)
--- NOTE | 2019-05-30 06:00 | NUR ---
BP STILL HIGH 171/98, NO C/O PAIN OR HEADACHE.
--- NOTE | 2019-05-30 07:00 | NUR ---
PT RESTING COMFORTABLY, NO COMPLAINTS.
--- NOTE | 2019-05-30 07:25 | NUR ---
RECEIVED BEDSIDE REPORT FROM MOLDED FRAMES ASSEMBLER NURSE SAVANNA Briggs PT IS IN NO ACUTE DISTRESS, TWO IV SITES R AND L HAND 22 G, SALINE LOCKED. SKIN INTACT. ON ROOM AIR. WILL CONTINUE TO MONITOR.
[2019-05-30 07:30] LABS: ANION GAP 14.4 (8-16); CREATININE 3.4 mg/dL (0.7-1.3); POTASSIUM 3.4 mmol/L (3.5-5.1)
[2019-05-30 08:00] VITALS: BP 174/91
[2019-05-30] MEDS: ENOXAPARIN 30 MG/0.3 ML SYR SUBQ SCH (09:01)
[2019-05-30] MEDS: ISOSORBIDE DINITRATE 20 MG TAB PO SCH ×3 (09:04→17:08)
[2019-05-30] MEDS: NIFEdipine 60 MG TABER PO SCH (09:04)
[2019-05-30] MEDS: LISINOPRIL 20 MG TAB PO SCH (09:05)
[2019-05-30] MEDS: CARVEDILOL 6.25 MG TAB PO SCH ×2 (09:05→20:43)
--- NOTE | 2019-05-30 09:06 | NUR ---
AM MEDS ADMINISTERED, PT TOLERATED WELL. WILL RECHECK BP IN 1 HOUR.
--- NOTE | 2019-05-30 12:03 | NUR ---
BP 153/90 AT THIS TIME. PT IS GETTING A SPONGE BATH. BED LINENS CHANGED.
--- NOTE | 2019-05-30 13:30 | NUR ---
PT IS WATCHING TV, NO S/S OF DISTRESS, NO C/O PAIN. WILL CONTINUE TO MONITOR.
[2019-05-30 16:00] VITALS: BP 129/73
--- NOTE | 2019-05-30 17:12 | NUR ---
PT VISITING WITH A FRIEND AND WATCHING TV. ORDERED ISOSORBIDE ADMINISTERED. PT IN NO ACUTE DISTRESS.
--- NOTE | 2019-05-30 19:25 | NUR ---
ENDORSED PT TO JOINERS SUPERVISOR NURSE IN STABLE CONDITION.
--- NOTE | 2019-05-30 19:30 | NUR ---
RECEIVED FROM AM RN IN BED SLEEPING. CALL LIGHT WITH IN REACH. NO RESTLESSNESS. BREATHING WELL. CALL LIGHT WITH IN REACH. WOKE UP EASILY WHEN TOUCHED. CARE PLANS FOR THE NIGHT EXPLAINED WITH HIM. NO COMPLAINTS .
[2019-05-30 20:39] VITALS: BP 132/76
--- NOTE | 2019-05-30 20:47 | NUR ---
ALL P.O. MEDICATIONS SWALLOWED WELL. NO COMPLAINTS DONE. ABLE TO VERBALIZE WELL IN LAO. ENCOURAGED TO USE CALL LIGHT FOR ANY HELP HE MAY NEED OR IF IN PAIN. "OK". REQUESTED TO HAVE DOOR CLOSED RT TOO MUCH NOISE FROM ANOTHER SHOUTING PT. A/O X 4. ROM X 4.
[2019-05-30 23:45] VITALS: BP 118/70
--- NOTE | 2019-05-31 | NUR ---
PT. ATTENDED TO BY CNAS. KEPT DRY A ND CLEAN. NO COMPLAINT OF PAIN.
--- NOTE | 2019-05-31 02:53 | NUR ---
SLEEPING. NO RESTLESSNESS. BED ALARM ON. NEEDS ANTICIPATED RT CONFUSION.
[2019-05-31 05:13] VITALS: BP 161/90
[2019-05-31] MEDS: hydrALAZINE 25 MG TAB PO SCH ×3 (05:13→20:27)
--- NOTE | 2019-05-31 05:16 | NUR ---
AWAKE AT THIS TIME AND WATCHING TV. NO COMPLAINTS DONE.ABLE TO VERBALIZE NEEDS WELL. CALL LIGHT WITH IN REACH.
--- NOTE | 2019-05-31 07:12 | NUR ---
RECEIVED REPORT FROM NURSES' AIDE NURSE. PT IS IN BED SLEEPING ATT HIS TIME. NO DISTRESS NOTED. CALL LIGHT IN REACH.
[2019-05-31 08:00] VITALS: BP 170/91
[2019-05-31] MEDS: ISOSORBIDE DINITRATE 20 MG TAB PO SCH ×3 (09:24→18:01)
[2019-05-31] MEDS: LISINOPRIL 20 MG TAB PO SCH (09:24)
[2019-05-31] MEDS: cloNIDine 0.1 MG TAB PO SCH ×2 (09:25→20:27)
[2019-05-31] MEDS: NIFEdipine 60 MG TABER PO SCH (09:25)
[2019-05-31] MEDS: CARVEDILOL 6.25 MG TAB PO SCH ×2 (09:26→20:25)
[2019-05-31] MEDS: ENOXAPARIN 30 MG/0.3 ML SYR SUBQ SCH (09:27)
--- NOTE | 2019-05-31 09:30 | NUR ---
PT IS IN BED. NO DISTRESS NOTED AT THIS TIME. NO COMPLAINS OF PAIN. CALL LIGHT IN REACH.
--- NOTE | 2019-05-31 14:14 | NUR ---
PT IS IN BED. NO DISTRESS NOTED AT THIS TIME. NO COMPLAINS OF PAIN. CALL LIGHT IN REACH.
[2019-05-31 16:00] VITALS: BP 141/92
--- NOTE | 2019-05-31 16:00 | NUR ---
PT IS IN BED A THIS TIME. NO COMPLAIN OF PAIN. NO DISTRESS NOTED. CALL LIGHT IN REACH.
--- NOTE | 2019-05-31 18:36 | NUR ---
PT IS IN BED A THIS TIME. NO COMPLAIN OF PAIN. NO DISTRESS NOTED. CALL LIGHT IN REACH.
--- NOTE | 2019-05-31 19:21 | NUR ---
SHIFT REPORT GIVEN TO NIGHT NURSE. PT IS IN STABLE CONDITION. RESTING IN BED. CALL LIGHT IN REACH.
--- NOTE | 2019-05-31 19:30 | NUR ---
RECEIVED BEDSIDE REPORT FROM AM SHIFT RN FOR PT'S CONTINUITY OF CARE. PT IS [id number], BRP, ON ROOM AIR, HAS RIGHT HAND 22G SALINE LOCK AND LEFT HAND 22G SALINE LOCK, DENIES PAIN AT THIS TIME. EXPLAINED TO PT THE WIRE STRETCHER ROUTINE, PT VERBALIZED UNDERSTANDING. PT INQUIRED RE: DISCHARGE, DC PLAN EXPLAINED TO PT. PT AWARE OF HEMODIALYSIS IN AM. SAFETY MEASURES IN PLACE, AND CALL LIGHT IS WITHIN REACH. WILL MONITOR PT THROUGHOUT SHIFT.
--- NOTE | 2019-05-31 20:30 | NUR ---
ADMINISTERED SCHEDULED MEDICATIONS ORDERED. PT TOLERATED IT WELL. PT TEACHING GIVEN, PT VERBALIZED UNDERSTANDING. PT REQUESTED AND PROVIDED WITH SNACKS. WILL CONTINUE TO MONITOR PT.
--- NOTE | 2019-05-31 23:30 | NUR ---
VS CHECKED AND CHARTED. PT DENIES ANY PAIN OR DISCOMFORT. WILL CONTINUE TO MONITOR PT.
[2019-06-01] VITALS: BP 138/81
--- NOTE | 2019-06-01 02:00 | NUR ---
PT LYING DOWN ASLEEP WITH NO SIGNS OF DISTRESS.
--- NOTE | 2019-06-01 04:00 | NUR ---
PT LYING DOWN ASLEEP WITH NO SIGNS OF DISTRESS.
[2019-06-01] MEDS: hydrALAZINE 25 MG TAB PO SCH ×3 (05:05→20:52)
--- NOTE | 2019-06-01 05:05 | NUR ---
ADMINISTERED SCHEDULED PO MEDICATION ORDERED. PT REQUESTED AND PROVIDED COFFEE. PT MADE COMFORTABLE. WILL CONTINUE TO MONITOR PT.
--- NOTE | 2019-06-01 06:00 | NUR ---
PT BP CHECKED 165/95. PT DENIES ANY PAIN OR DISCOMFORT. WILL ENDORSE PT TO AM SHIFT RN FOR PT'S CONTINUITY OF CARE.
--- NOTE | 2019-06-01 07:30 | NUR ---
RECEIVED REPORT FROM ROLL PANNER NURSE. PT IS ALERT AND ORIENTED. NO SIGNS OF DISTRESS. CALL LIGHT WITHIN PT'S REACH, SIDERAILS UP, BED ON LOW. WILL CONTINUE TO MONITOR
[2019-06-01 08:00] VITALS: BP 159/96
[2019-06-01] MEDS: ENOXAPARIN 30 MG/0.3 ML SYR SUBQ SCH (08:44)
--- NOTE | 2019-06-01 08:48 | NUR ---
SCHEDULED MEDS GIVEN EXCEPT BP MEDS. PT IS SCHEDULED FOR DIALYSIS TODAY. WILL CONTINUE TO MONITOR
--- NOTE | 2019-06-01 08:58 | NUR ---
CALLED DIALYSIS TO VERIFY DIALYSIS SCHEDULE FOR TODAY AND SAID THE DIALYSIS NURSE IS ON HIS WAY ALREADY.
[2019-06-01] MEDS: CARVEDILOL 6.25 MG TAB PO SCH ×2 (09:00→20:51)
[2019-06-01] MEDS: ISOSORBIDE DINITRATE 20 MG TAB PO SCH ×3 (09:00→17:06)
[2019-06-01] MEDS: LISINOPRIL 20 MG TAB PO SCH (09:00)
[2019-06-01] MEDS: NIFEdipine 60 MG TABER PO SCH (09:00)
[2019-06-01] MEDS: cloNIDine 0.1 MG TAB PO SCH ×2 (09:00→20:51)
--- NOTE | 2019-06-01 11:00 | NUR ---
DIALYSIS NURSE CAME FOR PT TO DO DIALYSIS. PT IS STABLE, NO SIGNS OF DISTRESS. WILL CONTINUE TO MONITOR
--- NOTE | 2019-06-01 12:45 | NUR ---
DIALYSIS DONE WITH 2.5L OUTPUT. PER DIALYSIS NURSE, THE PT VERBALIZED BEING TIRED DURING DIALYSIS SO HE STOPPED THE PROCEDURE EARLIER.
--- NOTE | 2019-06-01 13:00 | NUR ---
SCHEDULED MEDS GIVEN. BP IS 185/98. CALL LIGHT WITHIN PT'S REACH. WILL CONTINUE TO MONITOR
--- NOTE | 2019-06-01 15:30 | NUR ---
FREQUENT ROUNDING DONE. PT IS SLEEPING. NO SIGNS OF DISTRESS. CALL LIGHT WITHIN PT'S REACH. WILL CONTINUE TO MONITOR
[2019-06-01 16:00] VITALS: BP 168/96
--- NOTE | 2019-06-01 17:05 | NUR ---
PT IS AWAKE AND ORIENTED. FAMILY AT BEDSIDE. SCHEDULED MEDS GIVEN. PT TOLERATED WELL. WILL CONTINUE TO MONITOR
--- NOTE | 2019-06-01 19:20 | NUR ---
REPORT GIVEN TO MANAGER LOSS PREVENTION NURSE FOR CONTINUITY OF CARE. PT IS AWAKE AND STABLE. CALL LIGHT WITHIN PT'S REACH.
--- NOTE | 2019-06-01 19:30 | NUR ---
RECEIVED BEDSIDE REPORT FROM AM SHIFT RN FOR PT'S CONTINUITY OF CARE. PT IS AAOX4, IS ON ROOM AIR, HAS RIGHT HAND 22G AND LEFT HAND 22G BOTH SALINE LOCK, DENIES ANY PAIN. 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 SAFETY MEASURES IN PLACE AND CALL LIGHT IS WITHIN REACH. WILL MONITOR PT THROUGHOUT SHIFT.
--- NOTE | 2019-06-01 20:51 | NUR ---
ADMINISTERED SCHEDULED MEDICATIONS ORDERED. PT TOLERATED THEM WELL. PT TEACHING GIVEN, PT VERBALIZED UNDERSTANDING. WILL REASSESS BP.
--- NOTE | 2019-06-01 22:30 | NUR ---
PT'S BP RE-CHECKED AND CHARTED. PT DENIES ANY PAIN OR NEEDS AT THIS TIME. WILL CONTINUE TO MONITOR PT.
[2019-06-02] VITALS: BP 123/70
--- NOTE | 2019-06-02 01:00 | NUR ---
PT ASLEEP WITH NO SIGNS OF DISTRESS. WILL CONTINUE TO MONITOR PT.
--- NOTE | 2019-06-02 03:35 | NUR ---
PT WENT TO THE RESTROOM, TOLERATED ACTIVITY WELL.
--- NOTE | 2019-06-02 05:20 | NUR ---
ADMINISTERED SCHEDULED PO MEDICATION ORDERED. PT ASLEEP, WOKE UP, AND DENIED ANY DISTRESS OR DISCOMFORT. WILL CONTINUE TO MONITOR PT.
[2019-06-02] MEDS: hydrALAZINE 25 MG TAB PO SCH ×3 (05:24→20:54)
--- NOTE | 2019-06-02 06:33 | NUR ---
PT ASLEEP WITH NO SIGNS OF DISTRESS. WILL ENDORSE TO AM SHIFT RN FOR PT'S CONTINUITY OF CARE.
--- NOTE | 2019-06-02 07:15 | NUR ---
RECEIVED REPORT FROM GUMARO WILKS. PT AOX4, NO C/O PAIN. IV ON LT HAND 22 GA AND RT HAND 22 GA ON SALINE LOCK, FLUSHING WITH NO RESISTANCE. RESPIRATIONS EVEN AND UNLABORED ON RA. ABD SOFT, ACTIVE BS. SKIN IS INTACT, WARM TO TOUCH. REVIEWED POC WITH PT, PT VERBALIZED UNDERSTANDING. PT ON FALL RISK PRECAUTIONS, SAFETY MEASURES IN PLACE, CALL LIGHT WITHIN REACH.
[2019-06-02 08:00] VITALS: BP 152/91
[2019-06-02] MEDS: ISOSORBIDE DINITRATE 20 MG TAB PO SCH ×3 (09:00→17:12)
[2019-06-02] MEDS: VIT-B COMP/VIT-C/FOLIC ACID 1 TAB PO SCH (09:00)
[2019-06-02] MEDS: CARVEDILOL 6.25 MG TAB PO SCH ×2 (09:00→20:55)
[2019-06-02] MEDS: LISINOPRIL 20 MG TAB PO SCH (09:01)
[2019-06-02] MEDS: NIFEdipine 60 MG TABER PO SCH (09:01)
[2019-06-02] MEDS: cloNIDine 0.1 MG TAB PO SCH ×2 (09:02→20:54)
[2019-06-02] MEDS: ENOXAPARIN 30 MG/0.3 ML SYR SUBQ SCH (09:04)
--- NOTE | 2019-06-02 09:04 | NUR ---
ADMINISTERED MEDICATIONS PER ORDER, PT IS VERBALIZED UNDERSTANDING OF INDICATIONS AND POTENTIAL SIDE EFFECTS AT THIS TIME.
--- NOTE | 2019-06-02 10:30 | NUR ---
BLOOD PRESSURE AT 126/75 AT THIS TIME, PT HAS NO S/S OF HYPERTENSION. Addendum: 06/02/19 at 1826 by Bree Her RN CLARIFICATION: BLOOD PRESSURE IS AT 106/63.
--- NOTE | 2019-06-02 11:50 | NUR ---
BLOOD PRESSURE AT 126/75 AT THIS TIME, PT HAS NO S/S OF DISTRESS, NO C/O PAIN.
--- NOTE | 2019-06-02 12:45 | NUR ---
NOTED DIALYSIS ACCESS TO RT UPPER CHEST. DRESSING CLEAN, DRY AND INTACT.
--- NOTE | 2019-06-02 14:00 | NUR ---
PT RESTING IN SUPINE POSITION, RESPIRATIONS EVEN AND UNLABORED ON RA.
[2019-06-02 16:00] VITALS: BP 127/85
--- NOTE | 2019-06-02 16:10 | NUR ---
VITAL SIGNS WITHIN NORMAL RANGE. PT IS AWARE OF PLAN FOR POSSIBLE TRANSFER TO SNF FOR PHYSICAL THERAPY, PT IS AGREEABLE.
--- NOTE | 2019-06-02 17:12 | NUR ---
ADMINISTERED ISORDIL PER ORDER, PT VERBALIZED UNDERSTANDING OF INDICATION AND POTENTIAL SIDE EFFECTS.
--- NOTE | 2019-06-02 19:15 | NUR ---
RECIEVED PT. AAOX4 , NID . W/ IV SITE INTACT AND PATENT . W/ HD ACCESS ON R CHEST - FOR HD GERONIMO . NO COMPLAIN MADE AT THIS TIME . POC DISCUSSED AND VERBALIZE UNDERSTANDING . CALL LIGHT WITH IN REACH.
--- NOTE | 2019-06-02 19:15 | NUR ---
ENDORSED PT TO NURSE AGUILERA. PT HAS NO SIGNS OF DISTRESS AT THIS TIME.
--- NOTE | 2019-06-02 21:54 | NUR ---
RECEIVED PT ON ROOM AIR NC WITH SP02 OF 98% AND A CLEAR BREATH SOUNDS ON THE UPPER LOBES. NO RESPIRATORY DISTRESS NOTED AT THIS TIME. NO INDICATION FOR HHN PRN TX. WILL CONTINUE TO MONITOR PT.
--- NOTE | 2019-06-02 22:00 | NUR ---
RESTING ON BED . NO COMPLAIN MADE AT THIS TIME.
[2019-06-03] VITALS: BP 130/72
--- NOTE | 2019-06-03 | NUR ---
MADE ROUNDS . NO SIGNS OF ACUTE DISTRESS NOTED AT THIS TIME . CALL LIGHT WITHIN REACH.
--- NOTE | 2019-06-03 01:34 | NUR ---
SLEEPING . Addendum: 06/03/19 at 0154 by Marlen Oliveros RN CHEST RISE AND FALL EQUALLY . CALL LIGHT WITHIN REACH.
--- NOTE | 2019-06-03 01:53 | NUR ---
RECEIVED PATIENT FROM SADIQ NAIK FOR CONTINUITY OF CARE, PT IS RESTING QUIETLY
--- NOTE | 2019-06-03 01:53 | NUR ---
ENDORSED TO ARIELLA CORRALES FOR CONT. OF CARE. PT STABLE.
--- NOTE | 2019-06-03 04:00 | NUR ---
PT SLEEPING WHEN CHECKED, NO SIGN OF DISTRESS.
--- NOTE | 2019-06-03 05:00 | NUR ---
VS 146/90 HR 84. NO COMPLAINTS.
[2019-06-03] MEDS: hydrALAZINE 25 MG TAB PO SCH ×2 (05:21→13:27)
--- NOTE | 2019-06-03 06:27 | NUR ---
RESTING QUIETLY, NO COMPLAINTS, NO SIGN OF DISTRESS.
--- NOTE | 2019-06-03 07:00 | NUR ---
RECEIVED REPORT FROM NIGHT NURSE. PATIENT IS ASLEEP, EASILY AROUSABLE BY NAME. RESPIRATION EVEN AND UNLABORED. IV INTACT AND PATENT TO LEFT HAND AND RIGHT HAND. PLANS OF CARE DISCUSSED. BED IN LOW POSITION. CALL LIGHT WITHIN REACH.
[2019-06-03 08:00] VITALS: BP 141/86
[2019-06-03] MEDS: cloNIDine 0.1 MG TAB PO SCH (08:28)
[2019-06-03] MEDS: NIFEdipine 60 MG TABER PO SCH (08:28)
[2019-06-03] MEDS: ISOSORBIDE DINITRATE 20 MG TAB PO SCH ×3 (08:29→16:35)
[2019-06-03] MEDS: LISINOPRIL 20 MG TAB PO SCH (08:29)
[2019-06-03] MEDS: CARVEDILOL 6.25 MG TAB PO SCH (08:29)
[2019-06-03] MEDS: ENOXAPARIN 30 MG/0.3 ML SYR SUBQ SCH (08:31)
--- NOTE | 2019-06-03 09:00 | NUR ---
PATIENT SCHEDULED FOR HEMODIALYSIS. DIALYSIS NURSE AT BEDSIDE. ALL BP MEDICATIONS WITHHELD. PATIENT IS AAOX4. PATIENT RECEIVED BREAKFAST. NO S/S OF DISTRESS NOTED.
[2019-06-03] MEDS: VIT-B COMP/VIT-C/FOLIC ACID 1 TAB PO SCH (10:14)
--- NOTE | 2019-06-03 10:55 | NUR ---
AWAKE AND ALERT FOLLOWS REGIONAL INTERMODAL TRUCK DRIVER COMMANDS NO SOB NOTED GOOD CHEST RISE HEMODIALYSIS IN PROGRESS
[2019-06-03 11:34] LABS: ALBUMIN 2.5 g/dL (3.4-5.0); ANION GAP 10.8 (8-16); CARBON DIOXIDE 28.3 mmol/L (21-32); CREATININE 2.5 mg/dL (0.6-1.3); POTASSIUM 3.1 mmol/L (3.5-5.1); TOTAL BILIRUBIN 0.3 mg/dL (0.0-1.0)
--- NOTE | 2019-06-03 11:45 | NUR ---
DIALYSIS FINISHED. PER DIALYSIS NURSE OUTPUT 2.5 LITER. PATIENT ALERT AND AWAKE. NO S/S OF DISTRESS NOTED.
--- NOTE | 2019-06-03 13:07 | NUR ---
NOTIFIED DR. HOBSON OF PATIENT'S LAB VALUE NA 133, POTASSIUM 3.1. PER DR. HOBSON NO ORDERS NEEDED AT THIS TIME.
--- NOTE | 2019-06-03 14:35 | NUR ---
PATIENT IS AAOX4. NO S/S OF DISTRESS NOTED. ABLE TO MAKE NEEDS KNOWN. CALL LIGHT WITHIN REACH.
--- NOTE | 2019-06-03 14:54 | NUR ---
06/03/19 RD FOLLOW UP COMPLETED PLEASE REFER TO NUTRITION ASSESSMENT UNDER CARE ACTIVITY FOR ESTIMATED NUTRITIONAL NEEDS. 1. CONTINUE RENAL DIET TOLERATE 2. NUTRITION EDUCATION REINFORCEMENT OF RENAL DIET WAS PROVIDED. PT ACCEPTED 3. RD TO FOLLOW-UP 5-7 DAYS, LOW RISK KEITH CHANDLER, RD
[2019-06-03] MEDS ORDERED: POTASSIUM CHLORIDE 10 MEQ TABER PO SCH (16:00)
--- NOTE | 2019-06-03 16:13 | NUR ---
REPORT GIVEN TO IVANNA GRIGGS FROM [facility].
[2019-06-03] MEDS ORDERED: CARV12.5 PO (16:39)
--- NOTE | 2019-06-03 16:39 | NUR ---
PER SALEEM FUR STRETCHER, PATIENT WILL BE PICKED UP BY [facility] at 445 PM TODAY. PATIENT IS AWARE.
--- NOTE | 2019-06-03 17:00 | NUR ---
CALLED DR. HOBSON IN REGARDS TO DISCHARGE UNABLE TO FINALIZE RX. PER DOCTOR NO COMPUTER ACCESS. DISCHARGE SHEET WITH MED LIST COPIED AND SENT TO PATIENT.
--- NOTE | 2019-06-03 17:05 | NUR ---
PATIENT PICKED UP BY [facility] VIA GURNEY. PATIENT IS GOING TO [facility]. DISCHARGE PAPERWORK GIVEN TO PATIENT. ALL BELONGINGS GIVEN TO PATIENT. IV REMOVED, CANNULA INTACT. NO BLEEDING NOTED.
[2019-06-03 17:13] VITALS: BP 150/98
== END 2019-06-03 17:05 | disposition home health service (06) | DRG 470 ==
LOC: MED 18:16 → MTU 20:23
PROVIDERS: ADMIT Internal Medicine Pulmonary Disease; ATTEND Internal Medicine Pulmonary Disease
PROC: 5A1D70Z Performance of Urinary Filtration, Intermittent, Less than 6 Hours Per Day (ICD-10-PCS; principal; 2019-05-25)
PROC: 5A1D70Z Performance of Urinary Filtration, Intermittent, Less than 6 Hours Per Day (ICD-10-PCS; 2019-05-26)
PROC: 5A1D70Z Performance of Urinary Filtration, Intermittent, Less than 6 Hours Per Day (ICD-10-PCS; 2019-05-27)
PROC: 5A1D70Z Performance of Urinary Filtration, Intermittent, Less than 6 Hours Per Day (ICD-10-PCS; 2019-05-29)
PROC: 5A1D70Z Performance of Urinary Filtration, Intermittent, Less than 6 Hours Per Day (ICD-10-PCS; 2019-06-01)
PROC: 5A1D70Z Performance of Urinary Filtration, Intermittent, Less than 6 Hours Per Day (ICD-10-PCS; 2019-06-03)
DX: I12.0 Hypertensive chronic kidney disease with stage 5 chronic kidney disease or end stage renal disease (principal); E87.2 Acidosis; E87.8 Other disorders of electrolyte and fluid balance, not elsewhere classified; E44.1 Mild protein-calorie malnutrition; I16.9 Hypertensive crisis, unspecified; E87.6 Hypokalemia; N18.6 End stage renal disease; D63.8 Anemia in other chronic diseases classified elsewhere; R74.0 Nonspecific elevation of levels of transaminase and lactic acid dehydrogenase [LDH]; R26.2 Difficulty in walking, not elsewhere classified; F14.10 Cocaine abuse, uncomplicated; Z99.2 Dependence on renal dialysis; Z59.0 Homelessness; Z91.15 Patient's noncompliance with renal dialysis; Z79.899 Other long term (current) drug therapy; Z82.49 Family history of ischemic heart disease and other diseases of the circulatory system; Z68.30 Body mass index [BMI] 30.0-30.9, adult
CPT/HCPCS: 36415; 71045; 80048; 80053; 83735; 83880; 84100; 84484; 85025; 85610; 85730; 86706; 87081; 87340; 90935; 93005; 94640; 96374; 96375; 97110; 97112; 97116; 97161-GP; 97530; 99285; J0360; J1644; J1650; J1940; J3490; J7613; J7620; Q0092

== ENCOUNTER 2019-09-21 18:12 | Inpatient (IN) | payer OTHER ==
[~2019-09-21] VITALS: Ht 177.8 cm; Wt 94.3 kg
[~2019-09-21 18:12] MED LIST changes: +CARV12.5 PO; +NIFE60TA39 PO; -NIFE60TE8 PO
--- NOTE | 2019-09-21 18:29 | NUR ---
PERMA CATH RIGHT SIDE CHEST--NOTED NO DRESSING OVER INSERT SITE OF CATHETER TO CHEST---PT STATED IT FELL OFF AWAKE ALERT C/O ABDOMINAL PAIN WITH WATERY STOOLS AND N/V--- ADMITS MISSING 1 WK OF DIALYSIS
[2019-09-21] MEDS ORDERED: MORPHINE SULFATE 4 MG/ML SYR IVP ONE (18:35)
[2019-09-21] MEDS ORDERED: ONDANSETRON 4 MG/2 ML VIAL IVP ONE ×2 (18:35→19:50)
[2019-09-21 18:52] LABS: BASOPHILS % (AUTO) 0.2 % (0.0-2.0); EOSINOPHILS % (AUTO) 0.3 % (0.0-4.0); HEMATOCRIT 46.3 % (36-52); HEMOGLOBIN 16.1 g/dL (12.0-18.0); LYMPHOCYTES # (AUTO) 1.8 K/uL (2.0-11.5); LYMPHOCYTES % (AUTO) 22.9 % (20.5-51.1); MEAN CORPUSCULAR HEMOGLOBIN 32 pg (27-31); MEAN CORPUSCULAR HGB CONC 35 g/dL (33-37); MEAN CORPUSCULAR VOLUME 92.4 fL (80-94); MONOCYTES # (AUTO) 0.5 K/uL (0.8-1.0); MONOCYTES % (AUTO) 6.6 % (1.7-9.3); NEUTROPHILS # (AUTO) 5.5 K/uL (1.8-7.7); PLATELET COUNT (AUTO) 245 K/uL (140-450); RED BLOOD CELL COUNT(AUTO) 5.01 MIL/uL (4.20-6.10); RED CELL DISTRIBUTION WIDTH 14.6 % (11.6-13.7); WHITE BLOOD COUNT (AUTO) 7.9 K/uL (4.8-10.8)
--- NOTE | 2019-09-21 19:00 | NUR ---
STERILE CENTRAL LINE DRESSING APPLIED USING ASEPTIC TECHNIQUE---
--- NOTE | 2019-09-21 19:02 | NUR ---
PT STATES HE STILL IS ABLE TO PRODUCE URINE---URINAL LEFT AT BEDSIDE, PT AWARE TO PROVIDE SAMPLE WHEN POSSIBLE
--- NOTE | 2019-09-21 19:07 | NUR ---
Pt report received from GUMARO GUNTER. ASSUMED PT care at this time.
[2019-09-21 19:14] LABS: PROTHROMBIN TIME 9.1 secs (10.8-13.4)
--- NOTE | 2019-09-21 19:18 | NUR ---
PT TAKEN TO CT VIA WHEELCHAIR
[2019-09-21 19:19] LABS: LIPASE 238 U/L (73-393)
[2019-09-21 19:29] LABS: ALBUMIN 3.6 g/dL (3.4-5.0); ANION GAP 17.7 (8-16); CARBON DIOXIDE 19.6 mmol/L (21-32); POTASSIUM 4.3 mmol/L (3.5-5.1); TOTAL BILIRUBIN 1.3 mg/dL (0.0-1.0)
--- NOTE | 2019-09-21 19:31 | NUR ---
PT RETURNED FROM CT VIA WHEELCHAIR
--- NOTE | 2019-09-21 19:41 | NUR ---
INFORMED OF CRITICAL LAB --> CREAT = 6 ; TROPONIN = 0.077
[2019-09-21] MEDS ORDERED: ATENOLOL 25 MG TAB PO ONE (19:50)
[2019-09-21] MEDS ORDERED: hydrALAZINE 20 MG/ML VIAL IVP ONE (19:50)
[2019-09-21] MEDS ORDERED: NACL 0.9% 500 ML IV ONE (19:50)
--- NOTE | 2019-09-21 19:59 | NUR ---
URINE SAMPLE COLLECTED AND WALKED TO LAB
[2019-09-21 20:23] LABS: APPEARANCE,URINE HAZY (CLEAR); BILIRUBIN,URINE NEGATIVE (NEGATIVE); BLOOD, URINE 1+ (NEGATIVE); COLOR,URINE YELLOW (YELLOW); LEUKOCYTE ESTERASE ,URINE NEGATIVE (NEGATIVE); NITRITE, URINE NEGATIVE (NEGATIVE); PH,URINE 5.5 (5.0-9.0); UGLUCOSE NEGATIVE (NEGATIVE)
[2019-09-21] MEDS ORDERED: metroNIDAZOLE 250 MG TAB PO ONE (20:25)
[2019-09-21] MEDS ORDERED: CIPROFLOXACIN 250 MG TAB PO ONE (20:25)
[2019-09-21] MEDS ORDERED: HYDROmorphone PFS 2 MG/ML SYR IVP ONE (20:25)
[2019-09-21 20:26] LABS: BARBITURATE, URINE NEGATIVE ng/ml (NEG <=200); BENZODIAZEPINE, URINE NEGATIVE ng/mL (NEG <=200); CANNABINOID, URINE NEGATIVE ng/mL (NEG <=50); COCAINE, URINE NEGATIVE ng/mL (NEG <=300); OPIATE, URINE POSITIVE ng/mL (NEG <=2000); PHENCYCLIDINE SCREEN,URINE NEGATIVE ng/mL (NEG <=25)
[2019-09-21 20:45] LABS: WBC,URINE 0-5 /HPF (0-5)
--- NOTE | 2019-09-21 21:18 | NUR ---
ADMITTED 54 Y/O MALE VIA GURNEY FROM E.. PATIENT IS AWAKE. AOX4 RESPIRATION EVEN AND UNLABORED. NO SOB. PERMA CATH AT RIGHT CHEST FOR DIALYSIS Q TUE,THUR,SAT. IV SITE AT RAC 20G. INTACT. INITIAL ASSESSMENT DONE. V/S TAKEN 195/119, 88,20,97%, 98.9. PLAN OF CARE WAS DISCUSSED. WILL CONTINUE TO MONITOR.
--- NOTE | 2019-09-21 21:18 | NUR ---
Patient will be admitted to care of . Admited to [facility]. Will go to room 112B. Belongings list completed. Report GIVEN TO GUMARO PHIPPS, WHO ASSUMED CARE OF PT AT THIS TIME.
[2019-09-21] MEDS ORDERED: ZOLPIDEM 5 MG TAB PO PRN (21:40)
[2019-09-21] MEDS ORDERED: PROMETHAZINE 25 MG/ML VIAL IVP PRN (21:40)
[2019-09-21] MEDS ORDERED: LORazepam 1 MG TAB PO PRN (21:40)
[2019-09-21] MEDS ORDERED: LEVOFLOXACIN 500 MG/D5W PREMIX 100 ML IV SCH ×2 (21:45→22:15)
--- NOTE | 2019-09-21 22:00 | NUR ---
RE-CHECKED BP. 204/133 HR 82. PATIENT IS ASYMPTOMATIC. NO SOB. DENIES PAIN. PAGED MILL MACHINIST DR. DIOP
--- NOTE | 2019-09-21 22:30 | NUR ---
STILL WAITING CALL BACK. PAGED SECURITY PUBLIC SAFETY OFFICER 2ND TIME. PATIENT IS ASYMPTOMATIC. WILL CONTINUE TO MONITOR
--- NOTE | 2019-09-21 23:30 | NUR ---
INFORMED DAIRY ASSOCIATE DR. DIOP ON PATIENT'S BP AND HR. ORDERED CATAPRES 0.1MGB PO PRN. NOTED AND CARRIED OUT. WILL CONTINUE TO MONITOR. PATIENT IS ASYMPTOMATIC. NO SOB. DENIES PAIN.
[2019-09-21] MEDS ORDERED: cloNIDine 0.1 MG TAB PO PRN (23:40)
[2019-09-22] VITALS: BP 151/101
--- NOTE | 2019-09-22 01:40 | NUR ---
PATIENT'S BP 142/101 HR 78. WILL CONTINUE TO MONITOR.
[2019-09-22] MEDS: metroNIDAZOLE 500 MG/NS PREMIX 100 ML IV SCH ×3 (05:39→20:39)
[2019-09-22] MEDS: hydrALAZINE 25 MG TAB PO SCH ×3 (05:40→21:00)
[2019-09-22 06:30] LABS: ANION GAP 14.6 (8-16); CARBON DIOXIDE 21.8 mmol/L (21-32); POTASSIUM 4.4 mmol/L (3.5-5.1)
[2019-09-22 06:52] LABS: CREATININE 5.5 mg/dL (0.6-1.3)
--- NOTE | 2019-09-22 06:54 | NUR ---
RECEIVED CRITICAL LAB RESULT CREA 5.5 CALLED BY ARLET FROM LAB. INFORMED MD. MADRID.
[2019-09-22 06:55] LABS: BASOPHILS % (AUTO) 0.2 % (0.0-2.0); EOSINOPHILS # (AUTO) 0.1 K/uL (0-0.4); HEMATOCRIT 38.4 % (36-52); HEMOGLOBIN 13.3 g/dL (12.0-18.0); LYMPHOCYTES # (AUTO) 1.9 K/uL (2.0-11.5); LYMPHOCYTES % (AUTO) 31.5 % (20.5-51.1); MEAN CORPUSCULAR HEMOGLOBIN 32 pg (27-31); MEAN CORPUSCULAR HGB CONC 35 g/dL (33-37); MEAN CORPUSCULAR VOLUME 93.1 fL (80-94); MONOCYTES # (AUTO) 0.5 K/uL (0.8-1.0); MONOCYTES % (AUTO) 7.6 % (1.7-9.3); NEUTROPHILS # (AUTO) 3.6 K/uL (1.8-7.7); NEUTROPHILS % (AUTO) 59.7 % (42.2-75.2); PLATELET COUNT (AUTO) 193 K/uL (140-450); RED BLOOD CELL COUNT(AUTO) 4.12 MIL/uL (4.20-6.10); RED CELL DISTRIBUTION WIDTH 14.3 % (11.6-13.7)
--- NOTE | 2019-09-22 07:15 | NUR ---
PATIENT IS RESTING. NO SOB. ENDORSED TO AM SHIFT RN FOR CONTINUITY OF CARE.
--- NOTE | 2019-09-22 07:15 | NUR ---
RECEIVED REPORT FROM DAYCARE PROVIDER NURSE DESIRE-RN. PT AOX4, ON ROOM AIR WITH RIGHT AC #20G TKO AND RIGHT UPPER CHEST PERMACATH. AMBULATORY. DISCUSSED PLAN OF CARE AND PT VERBALIZED UNDERSTANDING. NO S/S OF RESPIRATORY DISTRESS OR DISCOMFORT NOTED AT THIS TIME. WILL CONTINUE TO MONITOR.
[2019-09-22 08:00] VITALS: BP 141/81
[2019-09-22] MEDS: ISOSORBIDE DINITRATE 20 MG TAB PO SCH ×3 (08:42→17:38)
[2019-09-22] MEDS: LISINOPRIL 20 MG TAB PO SCH (08:43)
[2019-09-22] MEDS: cloNIDine 0.1 MG TAB PO SCH ×2 (08:43→21:00)
[2019-09-22] MEDS: CARVEDILOL 6.25 MG TAB PO SCH ×2 (08:44→21:00)
[2019-09-22] MEDS: NIFEdipine 60 MG TABER PO SCH (08:44)
--- NOTE | 2019-09-22 08:44 | NUR ---
SCHEDULED MEDICATIONS GIVEN AND TOLERATED WELL. NO S/S OF RESPIRATORY DISTRESS OR DISCOMFORT NOTED AT THIS TIME. WILL CONTINUE TO MONITOR.
--- NOTE | 2019-09-22 08:55 | NUR ---
PATIENT HAS BEEN SCREENED AND CATEGORIZED HIGH NUTRITION RISK. PATIENT WILL BE SEEN WITHIN 1-2 DAYS OF ADMISSION. 09/22/19-09/23/[address]
[2019-09-22] MEDS ORDERED: traMADol 50 MG TAB PO PRN (09:45)
--- NOTE | 2019-09-22 10:17 | NUR ---
PT C/O ABD PAIN 11/11. SPOKE WITH DR. MEJIA AND WAS GIVEN ORDER OF TRAMADOL. MEDICATION GIVEN AND TOLERATED WELL. NO S/S OF RESPIRATORY DISTRESS OR DISCOMFORT NOTED AT THIS TIME. WILL CONTINUE TO MONITOR. ALSO MADE DR AWARE THAT PT HAS NOT HAD DIALYSIS SINCE 09/14/2019. MD IN TO SEE PT TODAY.
--- NOTE | 2019-09-22 11:49 | NUR ---
DC PLANNIN YRS OLD MALE PATIENT WAS ADMITTED FROM HOME WITH A DX OF ABDOMINAL PAIN .PT HAS A HX OF ESRD, HTN, GERD, AND [place] . ON HEMODIALYSIS TTHS. CXR SHOWED NO ACUTE CARDIOPULMONARY DISEASE AND CT ABD/PELVIS SHOWED SMALL AMOUNT OF FREE PELVIC FLUID. ADMINISTERED IVF, LEVAQUIN IV ABX , MORPHINE FOR PAIN AND CONTINUE HOME MEDS. CONSULT WITH DR POE INSULATION INSTALLER FOR HEMODIALYSIS ORDER. DC PLAN SS TO EVALUATE PT'S NEEDS FOR DISCHARGE. CM/SS WILL FOLLOW UP . Addendum: 09/28/19 at 1454 by Daina Green CM CONTACTED PATIENTS PCP AND SPOKE WITH JIMMIE. PATIENTS FOLLOW UP APPOINTMENT IS SCHEDULED Friday AT 10:15 FOR A TELEPHONE APPT. I CALLED AND NOTIFIED PATIENT OF APPT.
[2019-09-22 12:00] VITALS: BP 95/61
[2019-09-22] MEDS ORDERED: MAGNESIUM OXIDE 400 MG TAB PO SCH (12:00)
--- NOTE | 2019-09-22 12:28 | NUR ---
SCHEDULED MEDICATIONS GIVEN. PT TOLERATED WELL. DR. MEJIA IN TO SEE PT. SPOKE WITH PT CITRIX ARCHITECT GRAHAM VELEZ IN REGARDS TO PT DIAGNOSIS AND CARE WITH PT CONSENT. NO S/S OF RESPIRATORY DISTRESS OR DISCOMFORT NOTED AT THIS TIME. WILL CONTINUE TO MONITOR.
--- NOTE | 2019-09-22 12:28 | NUR ---
WILLIAM NOTIFIED REGARDING HD ORDER FOR TODAY. JOSE ASSIGNED MADE AWARE.
--- NOTE | 2019-09-22 13:47 | NUR ---
PT SIGNED CONSENT FOR COLONOSCOPY AND PAPERWORK CHARTED IN HIS BOOK. DR. JIMENEZ ALSO SIGNED AFTER. PT AWARE OF PROCEDURE, RISKS, BENEFITS AND VERBALIZED UNDERSTANDING.
--- NOTE | 2019-09-22 14:58 | NUR ---
09/22/19 RD INITIAL ASSESSMENT COMPLETED PLEASE REFER TO NUTRITION ASSESSMENT UNDER CARE ACTIVITY FOR ESTIMATED NUTRITIONAL NEEDS. 1. CONTINUE CLEAR LIQUID DIET TOLERATED 2. RECOMMEND ENSURE CLEAR TID TOLERATED 3. RD PROVIDED NUTRITION EDUCATION HANDOUT FOR RENAL DIET 4. RD TO FOLLOW-UP 2-3 DAYS,HIGH RISK KEITH CHANDLER, CANELO
--- NOTE | 2019-09-22 15:06 | NUR ---
PT RESTING IN BED. NO S/S OF RESPIRATORY DISTRESS OR DISCOMFORT NOTED AT THIS TIME. WILL CONTINUE TO MONITOR.
[2019-09-22 16:00] VITALS: BP 90/61
[2019-09-22] MEDS: LACTULOSE 20 GM/30 ML UDC PO SCH ×2 (17:37→20:40)
[2019-09-22] MEDS: POLYETHYLENE GLYCOL 17 GM/PKT PO SCH (17:37)
[2019-09-22] MEDS: SENNA 8.6 MG TAB PO SCH (17:38)
--- NOTE | 2019-09-22 17:38 | NUR ---
SCHEDULED MEDICATIONS GIVEN AND TOLERATED WELL. EDUCATED PT ON BOWEL PREP. PT VERBALIZED UNDERSTANDING. NO S/S OF RESPIRATORY DISTRESS OR DISCOMFORT NOTED AT THIS TIME. WILL CONTINUE TO MONITOR.
--- NOTE | 2019-09-22 18:37 | NUR ---
SCHEDULED MEDICATION CITROMA GIVEN AND IS TOLERATING WELL. EDUCATED PT ON BOWEL PREP FOR COLONOSCOPY. NO S/S OF RESPIRATORY DISTRESS OR DISCOMFORT NOTED AT THIS TIME. WILL CONTINUE TO MONITOR.
[2019-09-22] MEDS ORDERED: MAGNESIUM CITRATE 300 ML BTL PO SCH (19:00)
--- NOTE | 2019-09-22 19:20 | NUR ---
RECEIVED REPORT FROM AM HAMILTON NESS. PT AOX4, ON ROOM AIR WITH RIGHT AC #20G TKO AND RIGHT UPPER CHEST PERMACATH FOR HEMODIALYSIS ACCESS, AMBULATORY. DISCUSSED PLAN OF CARE AND PT VERBALIZED UNDERSTANDING. WILL CONTINUE TO MONITOR.
--- NOTE | 2019-09-22 20:00 | NUR ---
PT SAID HE HAS 8/10 PAIN IN THE MID ABDOMEN, PT ON BOWEL PREP ASKED HIM 1ST IF MAYBE THE PAIN IS WANTING HIM TO GO, BUT HE SAID NO, THE PAIN IS IN THE ABDOMEN. WILL GIVE MORPHINE
--- NOTE | 2019-09-22 20:00 | NUR ---
TOOK THE VITAL SIGNS 102/57; 70; 94 %O2 SAT R.A; 18; 98.0 TEMP. HELP BP MEDS APRESMARIS, CATAPRES, COREG ; INFORMED DR. TOWNSEND. Addendum: 09/23/19 at 0708 by Elena Brewer RN DR KRISTA BRITTON THE DOCTOR-PLS DELETE DOCTOR
[2019-09-22] MEDS: MORPHINE SULFATE 2 MG/ML SYR IVP PRN (20:01)
[2019-09-22] MEDS: AMITRIPTYLINE 25 MG TAB PO SCH (20:40)
--- NOTE | 2019-09-22 21:00 | NUR ---
STARTED HEMODIALYSIS W/ [facility]
[2019-09-22] MEDS ORDERED: NACL 0.9% 1,000 ML IV SCH ×2 (21:20)
--- NOTE | 2019-09-22 23:35 | NUR ---
CHECKED ON PATIENT STILL W/ ONGOING DIALYSIS. WILL CONTINUE TO MONITOR
--- NOTE | 2019-09-23 | NUR ---
PT JUST FINISHED HIS HEMODIALYSIS 1100 ML TAKEN OUT ; 3 HRS
[2019-09-23] MEDS: hydrALAZINE 25 MG TAB PO SCH ×3 (05:00→21:00)
--- NOTE | 2019-09-23 05:31 | NUR ---
HYDRALAZINE NOT GIVEN PT'S BP IS 115/50; HR 96.
[2019-09-23] MEDS: metroNIDAZOLE 500 MG/NS PREMIX 100 ML IV SCH (05:34)
[2019-09-23 06:00] VITALS: BP 160/61
[2019-09-23] MEDS: cloNIDine 0.1 MG TAB PO SCH ×2 (06:19→21:00)
--- NOTE | 2019-09-23 06:20 | NUR ---
PT'S DAVID INCREASESD 160/51, HR 87 HR; PT ALSO IN PAIN 12/12, PT WILL BE GIVEN MORPHINE Addendum: 09/23/19 at 0621 by Elena Brewer RN PT'S BP
[2019-09-23] MEDS: MORPHINE SULFATE 2 MG/ML SYR IVP PRN ×2 (06:22→21:38)
--- NOTE | 2019-09-23 06:45 | NUR ---
TALKED TO DR. JIMENEZ ORDERED GOLYTELY TO FINISH IN 2 TO 3 HRS; THEN FOLLOWED BY 1 BOTTLE OF CITROMA; HE ORDERED KUB STAT
[2019-09-23] MEDS ORDERED: BOWEL EVACUANT DRINK 4,000 ML PDS PO SCH (07:00)
--- NOTE | 2019-09-23 07:23 | NUR ---
RECEIVED BEDSIDE REPORT FROM DRYLAND FARMER NURSE FOR CONTINUITY OF CARE. PT IS A&OX4; RESTING IN BED, AROUSABLE TO VOICE. RESPIRATIONS ARE EVEN AND UNLABORED, BREATHING TO RA. SKIN COLOR APPROPRIATE FOR ETHNICITY. RT CHEST PERMACATH, PATENT AND INTACT. REVIEWED PLAN OF CARE WITH PT. SAFETY MEASURES IN PLACE; BED IN LOW POSITION, CALL LIGHT WITHIN REACH. NO ACUTE DISTRESS NOTED. WILL CONTINUE TO MONITOR.
--- NOTE | 2019-09-23 07:28 | NUR ---
KRISSY BORJAS THE ABDOMEN WAS TAKEN STAT Addendum: 09/23/19 at 0752 by Elena Brewer RN OF
[2019-09-23 08:00] VITALS: BP 157/99
[2019-09-23] MEDS ORDERED: MAGNESIUM CITRATE 300 ML BTL PO SCH (08:00)
--- NOTE | 2019-09-23 08:30 | NUR ---
GOLYTELY BOWEL PREP ADMINISTERED.
[2019-09-23] MEDS: SENNA 8.6 MG TAB PO SCH (08:38)
[2019-09-23] MEDS: LISINOPRIL 20 MG TAB PO SCH (08:38)
[2019-09-23] MEDS: ISOSORBIDE DINITRATE 20 MG TAB PO SCH ×3 (08:39→18:51)
[2019-09-23] MEDS: NIFEdipine 60 MG TABER PO SCH (08:39)
[2019-09-23] MEDS: CARVEDILOL 12.5 MG TAB PO SCH ×2 (08:40→21:54)
--- NOTE | 2019-09-23 08:43 | NUR ---
PT'S SCHEDULED MEDICATIONS GIVEN; BP: 157/99, PULSE: 83. MEDICATION EDUCATION PROVIDED, WITH PT VERBALIZING UNDERSTANDING. NO ACUTE DISTRESS NOTED. WILL CONTINUE TO MONITOR.
[2019-09-23] MEDS: POLYETHYLENE GLYCOL 17 GM/PKT PO SCH (09:51)
[2019-09-23] MEDS: LACTULOSE 20 GM/30 ML UDC PO SCH (09:53)
--- NOTE | 2019-09-23 10:13 | NUR ---
PER DR SANDOVAL, HE SHOULD BE NOTIFIED WHEN PT COMPLETES THE GOLYTELY, AND IS READY FOR THE COLONOSCOPY.
--- NOTE | 2019-09-23 11:22 | NUR ---
JDE DEVELOPER NOTE: SW ATTEMPTED TO MEET PATIENT AT BEDSIDE TO COMPLETE ASSESSMENT. PATIENT REFUSED AT THIS TIME. Addendum: 09/24/19 at 1047 by Benito Butts [facility] Patient: Jeff Sibley : 1965 Age/Sex: 54/M Unit#: [id number] Room/Bed: 112/B User: Benito Butts Date: 09/24/19 10:43 Type: CM: Discharge Planning Basic Screen: Yes High Risk DC Screen Mims: LILLIANA Brothers Relationship: SISTER Pre-Admission Living Arrangements: Other Other: STEP UP HOUSING PROGRAM - [facility] Prior ADL Independent Current Home Health Name/Tel: N/A Current / Name/Tel: N/A Current Hospice Name/Tel: N/A Current Dialysis Name/Tel: [facility] Healthcare Decision Maker: Patient Advance Directive No Physician Orders for Life Sustaining Treatment Form No Discipline: Case Mgt/Social Svcs Tentative Discharge Plan/Destination: No Needs Identified Will require assistance post discharge: No Referred to Angle Shear Operator: No Tentative Discharge Plan Summary: PATIENT IS A 54-YEAR-OLD MALE ADMITTED FOR ABDOMINAL PAIN. PATIENT HAS PMHX OF ESRD, HYPERTENSION, AND GERD. PATIENT WAS ADMITTED FROM [facility]. SW MET WITH PATIENT AT BEDSIDE TO VERIFY DEMOGRAPHICS. PATIENT STATED THAT HE IS IN STEP UP PROGRAM WHERE HE IS CURRENTLY FINDING PERMANENT HOUSING THROUGH [facility]. PATIENT STATED HE WAS STAYING AT [facility] BUT HIS BELONGINGS WERE REMOVED AND ARE NOW WITH HIS SISTER. PATIENT STATED THAT HE HAS A HISTORY OF MANIC DEPRESSIVE DISORDER BUT PATIENT REFUSED MENTAL HEALTH RESOURCES. PATIENT REPORTED NO CURRENT SUBSTANCE ABUSE. TENTATIVE DISCHARGE PLAN IS FOR PATIENT TO COORDINATE WITH HIS STEP UP EMBEDDED FIRMWARE ENGINEER TO FOLLOW UP WITH PLACEMENT. NO FURTHER NEEDS IDENTIFIED. Signature: ZOE SHAFER Date: September 24, 2019 Time: 10:46 Addendum: 09/24/19 at 1112 by Benito FLANNERY MARCELLA WAS PROVIDED PHONE NUMBER TO [employer] - [facility]HAM FOR HOUSING. MARCELLA CALLED GRAHAM FROM [facility] [phone]. MARCELLA LEFT .
[2019-09-23 12:00] VITALS: BP 132/80
[2019-09-23] MEDS ORDERED: fentaNYL 0.05 MG/ML VIAL ONE (12:52)
[2019-09-23] MEDS ORDERED: diphenhydrAMINE 50 MG/ML VIAL ONE (12:52)
[2019-09-23] MEDS ORDERED: MIDAZOLAM 2 MG/2 ML VIAL ONE ×2 (12:52)
--- NOTE | 2019-09-23 13:34 | NUR ---
BOWL PREP COMPLETE. PT ESCORTED OFF UNIT VIA BED FOR COLONOSCOPY.
[2019-09-23] MEDS ORDERED: MIDAZOLAM 2 MG/2 ML VIAL IV ONE (13:45)
[2019-09-23] MEDS ORDERED: fentaNYL 0.05 MG/ML VIAL IVP ONE (13:45)
--- NOTE | 2019-09-23 13:55 | NUR ---
PT ESCORTED BACK ON UNIT VIA BED POST COLONOSCOPY. REPORT GIVEN BY GUMARO PRADHAN. VITAL SIGNS STABLE: 132/80, PULSE: 83, RR: 20, TEMP: 98.9, SPO2: 92%. WILL CONTINUE TO MONITOR,
[2019-09-23 16:00] VITALS: BP 145/88
--- NOTE | 2019-09-23 19:19 | NUR ---
ENDORSED TO BROWNFIELD PROGRAM COORDINATOR NURSE FOR CONTINUITY OF CARE. PT IS IN STABLE CONDITION.
--- NOTE | 2019-09-23 19:20 | NUR ---
RECEIVED REPORT FORM EUGENIA NAIK DAYSHIFT AT BEDSIDE FOR CONTINUITY OF CARE, PT IS AOX4 LYING IN BED WITH IV SITE RAC INTACT AND SALINE LOCKED AT THIS TIME. PT HAS NO C/O VOICED. ALL UNIVERSAL FALLS PRECAUTIONS IN PLACE. PT IS ON ISOLATION PRECAUTIONS PENDING C-DIFF RESULTS.
[2019-09-23 20:00] VITALS: BP 116/63
--- NOTE | 2019-09-23 20:00 | NUR ---
C DIFF RESULTS ARE NEGATIVE. ROUNDS DONE, PT RESTING IN BED IV SITE RAC INTACT AND ASYMPTOMATIC. PT RIGHT UPPER CHEST PORT A CATH INTACT AND ASYMPTOMATIC. PT ABDOMEN ROUND AND DISTENDED. PT SAYS PAIN IS TOLERABLE AT 3/10 .ALL UNIVERSAL FALLS PRECAUTIONS IN PLACE.
--- NOTE | 2019-09-23 21:40 | NUR ---
PT C/O OF SEVERE PAIN IN ABDOMEN 11/11, HE WAS GIVEN IVP/PRN MORPHINE. PT ALSO GIVEN ORDERED ELAVIL AND COREG. HYDRALAZINE AND CATAPRES WAS HELD DUE TO PT B/P WAS 116/63 HR 92. WILL CONTINUE TO MONITOR EFFECT OF PAIN MEDICATIONS WELL BLOOD PRESSURE. EDUCATION REGARDING MEDICATION AND DX WELL TESTES RESULTS PROVIDED AT BEDSIDE. PT VERBALIZED UNDERSTANDING. PT WAS ABLE TO AMBULATE INDEPENDENTLY TO TOILET AND HAD ANOTHER LOOSE BM. ALL UNIVERSAL FALLS PRECAUTIONS IN PLACE.
[2019-09-23] MEDS: AMITRIPTYLINE 25 MG TAB PO SCH (21:45)
--- NOTE | 2019-09-23 22:45 | NUR ---
PT IN BED TALKING ON THE PHONE NO S/S OF PAIN OR DISTRESS NOTED. ALL UNIVERSAL PRECAUTIONS IN PLACE.
[2019-09-23] MEDS ORDERED: LEVOFLOXACIN 250 MG/D5 PREMIX 50 ML IV SCH (23:00)
[2019-09-24] VITALS: BP 90/50
--- NOTE | 2019-09-24 | NUR ---
PT IN BED ASLEEP NO S/S OF PAIN OR DISTRESS NOTED V/S FOLLOWS; T 98.0 P 85 R 18 B/P 90/50 02 95% ON ROOM AIR. ALL UNIVERSAL PRECAUTIONS IN PLACE.
[2019-09-24 04:00] VITALS: BP 165/95
--- NOTE | 2019-09-24 04:30 | NUR ---
PT IN BED SLEEPING BUT AROUSABLE TO NAME AND LIGHT TOUCH. V/S FOLLOWS: T 98.2 P 88 R 20 B/P 165/95 02 96% ON ROOM AIR. PT GIVEN SCHEDULED HYDRALAZINE 100MG. IV SITE INTACT AND ASYMPTOMATIC. ALL UNIVERSAL FALLS PRECAUTIONS IN PLACE.
[2019-09-24] MEDS: hydrALAZINE 25 MG TAB PO SCH ×2 (05:50→12:56)
--- NOTE | 2019-09-24 07:18 | NUR ---
RECEIVED REPORT FROM NIGHT NURSE PT IS AAOX4 ON ROOM AIR AND AMBULATORY, NO DISTRESS NOTED AND SAFETY MEASURES IN PLACE, CALL LIGHT WITHIN REACH. WILL CONTINUE TO MONITOR
[2019-09-24 08:00] VITALS: BP 137/72
[2019-09-24] MEDS ORDERED: LACTULOSE 20 GM/30 ML UDC PO SCH (09:00)
[2019-09-24] MEDS: LISINOPRIL 20 MG TAB PO SCH (09:00)
[2019-09-24] MEDS: NIFEdipine 60 MG TABER PO SCH (09:00)
[2019-09-24] MEDS: cloNIDine 0.1 MG TAB PO SCH (09:00)
[2019-09-24] MEDS: ISOSORBIDE DINITRATE 20 MG TAB PO SCH ×3 (09:15→16:44)
[2019-09-24] MEDS: CARVEDILOL 12.5 MG TAB PO SCH (09:16)
[2019-09-24 12:00] VITALS: BP 105/51
--- NOTE | 2019-09-24 12:58 | NUR ---
CHECKED VITAL SIGNS BP 105/51, CO 91. BP MEDICATIONS NOT GIVEN, INFORMED DR MEJIA. SAFETY MEASURES IN PLACE CALL LIGHT WITHIN REACH. WILL CONTINUE TO MONITOR.
--- NOTE | 2019-09-24 13:23 | NUR ---
09/24/19 RD FOLLOW UP COMPLETED PLEASE REFER TO NUTRITION ASSESSMENT UNDER CARE ACTIVITY FOR ESTIMATED NUTRITIONAL NEEDS. 1. CONTINUE RENAL DIET TOLERATED 2. RECOMMEND ENSURE CLEAR TID TOLERATED 3. RD TO FOLLOW-UP 3-5 DAYS,MODERATE RISK KEITH CHANDLER, RD
[2019-09-24 16:00] VITALS: BP 114/58
--- NOTE | 2019-09-24 18:30 | NUR ---
DISCHARGED INSTRUCTION PROVIDED TO PT AT BEDSIDE, EDUCATED PT ON MEDICATION REGIMENS, SIDE EFFECTS AND TO FOLLOWUP WITH HIS MD AFTER DISCHARGE AND FOR HIS DIALYSIS TOMORROW, SEEK MEDICAL HELP IN CASE OF MEDICAL EMERGENCIES. REMOVED ALL ID BANDS AND IV INTACT AND COMPLETE, NO BLEEDING ON IV SITES.PT CHANGED TO HOME CLOTHES AND RETURNED ALL HIS BELONGINGS,ESCORTED PATIENT TO FRONT LOBBY, PT IS DISCHARGED TO HOME, PT IS STABLE.
== END 2019-09-24 18:35 | disposition home or self-care (01) | DRG 249 ==
LOC: MED 18:12 → MTU 20:25 → OBSVTOIN 09-23 13:03
PROVIDERS: ADMIT Hospitalist; ATTEND Hospitalist
PROC: 5A1D70Z Performance of Urinary Filtration, Intermittent, Less than 6 Hours Per Day (ICD-10-PCS; 2019-09-22)
PROC: 0DBB8ZX Excision of Ileum, Via Natural or Artificial Opening Endoscopic, Diagnostic (ICD-10-PCS; principal; 2019-09-23 13:00)
DX: K52.9 Noninfective gastroenteritis and colitis, unspecified (principal); I12.0 Hypertensive chronic kidney disease with stage 5 chronic kidney disease or end stage renal disease; E83.42 Hypomagnesemia; N18.6 End stage renal disease; E78.5 Hyperlipidemia, unspecified; Z99.2 Dependence on renal dialysis; K21.9 Gastro-esophageal reflux disease without esophagitis; I25.2 Old myocardial infarction; F19.10 Other psychoactive substance abuse, uncomplicated; F15.10 Other stimulant abuse, uncomplicated; K64.8 Other hemorrhoids; Z91.19 Patient's noncompliance with other medical treatment and regimen
CPT/HCPCS: 45380; 96361; 96374; 96375; 96376; 99285; G0378; 36415; 71045; 74018; 80048; 80053; 80305; 81001; 82150; 83605; 83690; 83735; 84484; 85025; 85610; 85730; 86140; 87040; 87070; 87081; 87086; 88305; 89055; 93005; G0482; J0360; J1170; J1200; J1644; J1956; J2250; J2270; J2405; J3010; J3490; J7030; Q0092

== ENCOUNTER 2021-09-13 17:02 | Emergency (ER) | payer OTHER ==
[~2021-09-13] VITALS: Ht 177.8 cm; Wt 104.3 kg
[~2021-09-13 17:02] MED LIST changes: +ATOR20TA PO; -CARV12.5 PO; +CARV25TA PO; -CARV6.252 PO; -CLON0.1T42 PO; +CLON0.2T47 TD; -HYDR-4420 PO; -ISOS20TA13 PO; -LISI-420 PO; -NIFE60TA39 PO; +NIFE90TE4 PO
--- NOTE | 2021-09-13 17:05 | NUR ---
HENRY QUIROGA TAKEN TO BED 11
[2021-09-13 17:13] VITALS: BP 137/81
--- NOTE | 2021-09-13 17:39 | NUR ---
56/M [facility] PATIENT COMPLETED SCHEDULED DIALYSIS 30 MIN PRIOR TO CALLING 911, [facility] PATIENT WAS WALKING TO THE STORE AND BEGAN FEELING WEAK AND DIZZY. UPON ARRIVAL PATIENT STATES DIZZINESS HAS SINCE RESOLVED, DENIES N/V/D OR VISION CHANGES. DIALYSIS PORT NOTED TO LEFT UPPER CHEST. PT COMPLAINS OF HEAD PAIN AND IS UNAWARE OF LOC OR POSSIBLE TRAUMA TO THE HEAD. PT SAID HE HAD A HIGH PAIN TOLERANCE AND RATED HIS PAIN 5/10. NO PAIN ANYWHERE ELSE AT THIS TIME. PT STABLE VITAL SIGNS. PT RESTING IN BED. PMH: ESRD (DIALYSIS , , SAT), HTN, GERD, CHOLESTERL, HX OF 4 AR'S NKA
--- NOTE | 2021-09-13 18:46 | NUR ---
PATIENT RESTING IN BED WITH EYES CLOSED, LIGHTS DIMMED AND BLANKET PROVIDED FOR COMFORT. WILL CONTINUE TO MONITOR.
--- NOTE | 2021-09-13 19:00 | NUR ---
DR. SAUNDERS AT BEDSIDE ASSESSING PT
--- NOTE | 2021-09-13 19:24 | NUR ---
GAVE REPORT TO ROHIT
--- NOTE | 2021-09-13 19:35 | NUR ---
LAB AT BEDSIDE
--- NOTE | 2021-09-13 19:41 | NUR ---
XRAY AT BEDSIDE
[2021-09-13] MEDS ORDERED: MORPHINE SULFATE 4 MG/ML SYR IVP ONE (19:45)
[2021-09-13 19:46] LABS: BASOPHILS % (AUTO) 0.7 % (0.0-2.0); EOSINOPHILS # (AUTO) 0.1 K/uL (0-0.4); EOSINOPHILS % (AUTO) 1.5 % (0.0-4.0); HEMATOCRIT 37.4 % (36-52); LYMPHOCYTES # (AUTO) 1.5 K/uL (2.0-11.5); LYMPHOCYTES % (AUTO) 32.1 % (20.5-51.1); MEAN CORPUSCULAR HEMOGLOBIN 34 pg (27-31); MEAN CORPUSCULAR HGB CONC 35 g/dL (33-37); MEAN CORPUSCULAR VOLUME 98.4 fL (80-94); MONOCYTES # (AUTO) 0.3 K/uL (0.8-1.0); NEUTROPHILS # (AUTO) 2.8 K/uL (1.8-7.7); NEUTROPHILS % (AUTO) 58.7 % (42.2-75.2); PLATELET COUNT (AUTO) 278 K/uL (140-450); RED CELL DISTRIBUTION WIDTH 15.5 % (11.6-13.7); WHITE BLOOD COUNT (AUTO) 4.7 K/uL (4.8-10.8)
[2021-09-13] MEDS ORDERED: MORPHINE SULFATE 4 MG/ML SYR IM ONE (19:55)
[2021-09-13 20:03] LABS: PROTHROMBIN TIME 9.4 secs (10.8-13.4)
[2021-09-13 20:08] LABS: ALBUMIN 4.1 g/dL (3.4-5.0); ANION GAP 17.2 (8-16); CARBON DIOXIDE 27.8 mmol/L (21-32); TOTAL BILIRUBIN 0.6 mg/dL (0.0-1.0)
[2021-09-13 20:17] LABS: CREATININE 7.5 mg/dL (0.6-1.3)
--- NOTE | 2021-09-13 20:20 | NUR ---
PT OFFERED APPLESAUCE
--- NOTE | 2021-09-13 21:59 | NUR ---
Patient appears to be resting comfortably in bed. Respirations even and unlabored.
--- NOTE | 2021-09-13 22:39 | NUR ---
PT IS SLEEPING. VSS
--- NOTE | 2021-09-13 23:05 | NUR ---
Patient being evaluated by physician at bedside.
[2021-09-13 23:31] VITALS: BP 135/86
--- NOTE | 2021-09-13 23:31 | NUR ---
Patient discharged with v/s stable. Written and verbal after care instructions given and explained. Patient verbalized understanding. Ambulatory with steady gait. All questions addressed prior to discharge. Advised to follow up with PMD.
== END 2021-09-13 23:31 | disposition home or self-care (01) ==
LOC: MED 17:02
DX: R55 Syncope and collapse (principal); R53.1 Weakness; I10 Essential (primary) hypertension; I25.2 Old myocardial infarction; K21.9 Gastro-esophageal reflux disease without esophagitis; I12.0 Hypertensive chronic kidney disease with stage 5 chronic kidney disease or end stage renal disease; N18.6 End stage renal disease; Z99.2 Dependence on renal dialysis
CPT/HCPCS: 36415; 71045; 80053; 83880; 84484; 85025; 85610; 85730; 93005; 96372; 99284; J2270; Q0092

== ENCOUNTER 2022-03-05 08:55 | Inpatient (IN) | payer OTHER ==
[~2022-03-05] VITALS: Ht 177.8 cm; Wt 112.0 kg
[2022-03-05] VITALS (13 sets, daily range): BP systolic 154–239; BP diastolic 92–166
[2022-03-05] MEDS ORDERED: MORPHINE SULFATE 4 MG/ML SYR IVP ONE (09:20)
[2022-03-05] MEDS ORDERED: NITROGLYCERIN 2% 1 GM PKT TP ONE (09:20)
--- NOTE | 2022-03-05 09:30 | NUR ---
PT BIB [facility] C/[facility]B FROM [facility], DID NOT START DIALYSIS TODAY D/T SOB, MISSED DIALYSIS FRIDAY D/T NOT FEELING WELL. PT BREATHING LABORED TACHYPNEIC SPEAKING TWO TO THREE WORD SENTENCES. TACHY ON MONITOR. ON FACE MASK 10L SATURATION 95%.
--- NOTE | 2022-03-05 09:40 | NUR ---
PT DESATING IN 70S WITH 10L MASK, RT CALLED FOR BIPAP , PLACED ON BIPAP AT BEDSIDE . DR JOLLY AT BEDSIDE
--- NOTE | 2022-03-05 09:40 | NUR ---
@930 ER CALLED NEEDING A BIPAP FOR PT IN ER. RT ARRIVED AT BEDSIDE RN WAS AT BEDSIDE PT DESATURATION IN THE 80S. BIPAP WAS PLACED ON PT WANTED 18/10 100%. PT SEEMED TO BE IN RESPIRATORY DISTRESS. RR IN THE HIGH 40S. PT IS TOLERATING BIPAP OK ON THESE SETTINGS.AFTER BIPAP WAS PLACED ON PT VITAL SIGNS WERE HR 112 SPO2 97% RR IN HIGH 30S. WILL CONTINUE TO MONITOR.
--- NOTE | 2022-03-05 09:42 | NUR ---
DR. JOLLY BEDSIDE FOR US GUIDED IV INSERTION
[2022-03-05 09:58] LABS: BASOPHILS # (AUTO) 0.2 K/uL (0.00-0.22); EOSINOPHILS # (AUTO) 0.1 K/uL (0-0.4); EOSINOPHILS % (AUTO) 1.1 % (0.0-4.0); HEMATOCRIT 33.3 % (36-52); HEMOGLOBIN 11.4 g/dL (12.0-18.0); LYMPHOCYTES # (AUTO) 3.7 K/uL (2.0-11.5); LYMPHOCYTES % (AUTO) 41.3 % (20.5-51.1); MEAN CORPUSCULAR HEMOGLOBIN 34 pg (27-31); MEAN CORPUSCULAR HGB CONC 34 g/dL (33-37); MEAN CORPUSCULAR VOLUME 97.9 fL (80-94); MONOCYTES # (AUTO) 0.4 K/uL (0.8-1.0); MONOCYTES % (AUTO) 4.9 % (1.7-9.3); NEUTROPHILS # (AUTO) 4.6 K/uL (1.8-7.7); NEUTROPHILS % (AUTO) 50.7 % (42.2-75.2); PLATELET COUNT (AUTO) 273 K/uL (140-450); RED CELL DISTRIBUTION WIDTH 14.4 % (11.6-13.7)
--- NOTE | 2022-03-05 10:02 | NUR ---
PT TOLERATING BIPAP SETTINGS SATURATION 100%, PT HYPERTENSIVE IN 200S. DR JOLLY AWARE OF BP
[2022-03-05 10:13] LABS: ALBUMIN 2.9 g/dL (3.4-5.0); TOTAL BILIRUBIN 0.5 mg/dL (0.0-1.0)
--- NOTE | 2022-03-05 10:24 | NUR ---
DIALYSIS NURSE STATES ETA 2 HOURS
[2022-03-05 10:25] LABS: CREATININE 16.9 mg/dL (0.6-1.3)
[2022-03-05] MEDS ORDERED: CALCIUM GLUCONATE 10% 1,000 MG in NACL 0.9% 50 ML IV ONE (10:30)
[2022-03-05] MEDS ORDERED: DEXTROSE 50% 50 ML SYR IVP ONE (10:30)
[2022-03-05] MEDS ORDERED: INSULIN REGULAR, HUMAN 100 UNIT/ML VIAL IVP ONE (10:30)
[2022-03-05] MEDS ORDERED: CALCIUM GLUC 1 GM/50 mL NS BAG 50 ML IV ONE (10:33)
--- NOTE | 2022-03-05 10:49 | NUR ---
US AT BEDSIDE
[2022-03-05] MEDS ORDERED: ACETAMINOPHEN 325 MG TAB PO PRN (11:15)
[2022-03-05] MEDS ORDERED: ONDANSETRON 4 MG/2 ML VIAL IVP PRN (11:15)
[2022-03-05] MEDS ORDERED: LORazepam 1 MG TAB PO PRN (11:15)
--- NOTE | 2022-03-05 12:45 | NUR ---
RECEIVED BEDSIDE REPORT FROM SARITA PEOPLES RN. PT A&O X4. ON BIPAP, SOB. SR ON MONITOR. BP 236/147. IV TO RT AC, 18G, SALINE LOCKED. DIALYSIS CATHETER TO LT CHEST, WILL HAVE DIALYSIS TODAY. RENAL DIET. CONTINENT. SKIN INTACT. BED TO LOWEST POSITION, HOB ELEVATED, CALL LIGHT WITHIN REACH, WILL CONTINUE TO MONITOR.
--- NOTE | 2022-03-05 12:45 | NUR ---
PT TRANSFERRED FROM ER TO ICU. RN AT BEDSIDE. PT STABLE DURING TRANSPORT. PT IS STILL ON BIPAP 18/10 100. WILL TRY TO START TITRATING O2/
--- NOTE | 2022-03-05 12:57 | NUR ---
Patient will be admitted to care of DR HAWKINS. Admited to ICU. Will go to room ICU 6. Belongings list completed. Report to RN BEDSIDE.
--- NOTE | 2022-03-05 13:00 | NUR ---
DR SHRUTHI KENDALL AT BEDSIDE. UPDATED PT INFORMATION.
[2022-03-05] MEDS: NITROGLYCERIN 50 MG/D5W PREMIX 250 ML IV PRN ×2 (13:28→23:18)
[2022-03-05] MEDS: CLONIDINE HYDROCHLORIDE 0.1 MG TAB PO SCH ×2 (15:01→21:46)
--- NOTE | 2022-03-05 16:00 | NUR ---
DR COTTER SPOKE WITH HEMODIALYSIS RICHELLE NAIK. ORDERED ACTIVASE 2 DOSE FOR DIALYSIS CATHETER.
[2022-03-05] MEDS ORDERED: ALTEPLASE 2 MG VIAL MC SCH ×2 (16:05→16:45)
--- NOTE | 2022-03-05 16:40 | NUR ---
SPOKE WITH DR KRUSE VIA PHONE, UPDATED PT INFORMATION.
--- NOTE | 2022-03-05 16:54 | NUR ---
OVERRIDE ACTIVASE 4 MG FOR HEMODIALYSIS RICHELLE NAIK.
--- NOTE | 2022-03-05 17:21 | NUR ---
SEEN AND EXAMINED BY DR KRUSE. ORDERED TO OFF BIPAP.
--- NOTE | 2022-03-05 17:29 | NUR ---
@9062 DR KRUSE AT BEDSIDE. ASSESSED PT AND WANTS HIM TO BE PUT ON NASAL CANNULA SO HE CAN TRY TO EAT. PT WAS TAKEN OFF BIPAP AND PLACED ON 3L NC SATING 96%. NO DISTRESS NOTED. DR KRUSE REQUESTED PT TO BE PUT BACK ON BIPAP DURING THE NIGHT TONIGHT. WILL CONTINUE TO MONITOR PT.
[2022-03-05] MEDS ORDERED: METOCLOPRAMIDE 10 MG/2 ML INJ VIAL IVP PRN (17:30)
--- NOTE | 2022-03-05 18:00 | NUR ---
PT ATE, TALKED ON THE PHONE. TOLERATED WELL. NO S/S OF ACUTE RESPIRATORY DISTRESS.
--- NOTE | 2022-03-05 19:20 | NUR ---
ENDORSED TO LEILANI NAIK FOR CONTINUITY OF CARE.
--- NOTE | 2022-03-05 19:30 | NUR ---
REC'D REPORT FROM BELL PERSONGUMARO BALL TO ASSUME PLAN OF CARE. 1999: SHIFT ASSESSMENT DONE. PT'S A/OX4, DENIES PAIN. ON 2 LITERS 02 VIA NC SATS >97%. ON NITRO DRIP. PT'S SBP>180'S. ST LOW 100'S. HD PT, HAS PERMACATH ON THE LEFT UPPER CHEST WALL, INTACT. DIALYZED TODAY. NO SOB, AND NO CHEST PAIN STATED. ORIENTED TO UNIT/ROOM AND PLAN OF CARE DISCUSSED. FOR CT ABD AND PELVIS GERONIMO. SAFETY AND SKIN PROTOCOL ON PROGRESS. CONTINUE MONITOR.
--- NOTE | 2022-03-05 21:18 | NUR ---
2117: SENT PT TO CT PELVIS/ABD WITH POWDER EXPERTGUMARO BALL.
[2022-03-05] MEDS: carvediloL 12.5 MG TAB PO SCH (21:44)
[2022-03-05] MEDS: ZOLPIDEM 5 MG TAB PO PRN (21:45)
[2022-03-06] VITALS (26 sets, daily range): BP systolic 130–170; BP diastolic 68–109
[2022-03-06 06:44] LABS: BASOPHILS % (AUTO) 0.5 % (0.0-2.0); EOSINOPHILS # (AUTO) 0.1 K/uL (0-0.4); EOSINOPHILS % (AUTO) 1.1 % (0.0-4.0); HEMATOCRIT 22.9 % (36-52); HEMOGLOBIN 8.1 g/dL (12.0-18.0); LYMPHOCYTES # (AUTO) 1.3 K/uL (2.0-11.5); LYMPHOCYTES % (AUTO) 27.6 % (20.5-51.1); MEAN CORPUSCULAR HEMOGLOBIN 34 pg (27-31); MEAN CORPUSCULAR HGB CONC 35 g/dL (33-37); MEAN CORPUSCULAR VOLUME 95.3 fL (80-94); MONOCYTES # (AUTO) 0.4 K/uL (0.8-1.0); MONOCYTES % (AUTO) 7.9 % (1.7-9.3); NEUTROPHILS % (AUTO) 62.9 % (42.2-75.2); PLATELET COUNT (AUTO) 147 K/uL (140-450); WHITE BLOOD COUNT (AUTO) 4.7 K/uL (4.8-10.8)
[2022-03-06 06:45] LABS: ALBUMIN 2.2 g/dL (3.4-5.0); ANION GAP 20.5 (8-16); CARBON DIOXIDE 22.1 mmol/L (21-32); PHOSPHORUS 7.9 mg/dL (2.5-4.9); POTASSIUM 5.6 mmol/L (3.5-5.1); TOTAL BILIRUBIN 0.4 mg/dL (0.0-1.0)
[2022-03-06 06:59] LABS: CREATININE 14.8 mg/dL (0.6-1.3)
--- NOTE | 2022-03-06 07:26 | NUR ---
ENDORSED AND REPORT GIVEN BY DIRECTOR OF FOOD AND BEVERAGE SERVICESGUMARO BALL TO DIRECTOR OF FOOD AND BEVERAGE SERVICES LEO. PT'S /AOX4, DENIES PAIN. CONT ON NITROGLYCERIN DRIP.
--- NOTE | 2022-03-06 07:30 | NUR ---
RECEIVED REPORT FROM ELECTRONIC EQUIPMENT INSTALLER NURSE. PT IN BED WITH HOB ELEVATED. AOX4, ABLE TO MAKE NEEDS KNOWN. NO C/O PAIN, NO SOB ON ROOM AIR, WITH AUDIBLE CRACKLES. WITH PERIPHERAL IV RUNNING NITRO DRIP SA ORDERED. WITH L AV SHUNT AND LEFT CHEST TUNNEL CATH INTACT. PLAN FOR HD TODAY. SKIN INTACT. BED TO LOWEST POSITION, HOB ELEVATED, CALL LIGHT WITHIN REACH, WILL CONTINUE TO MONITOR.
[2022-03-06] MEDS: NIFEdipine 90 MG TABER PO SCH (08:27)
[2022-03-06] MEDS: CLONIDINE HYDROCHLORIDE 0.1 MG TAB PO SCH ×2 (08:29→22:00)
[2022-03-06] MEDS: carvediloL 12.5 MG TAB PO SCH ×2 (08:30→21:57)
[2022-03-06] MEDS: ATORVASTATIN 20 MG TAB PO SCH (08:31)
[2022-03-06] MEDS: DOCUSATE SODIUM 100 MG GELCAP PO SCH (08:33)
--- NOTE | 2022-03-06 09:00 | NUR ---
DUE MEDS GIVEN, TOLERATED WELL
--- NOTE | 2022-03-06 10:31 | NUR ---
PATIENT HAS BEEN SCREENED AND CATEGORIZED MODERATE NUTRITION RISK. PATIENT WILL BE SEEN WITHIN 3-5 DAYS OF ADMISSION. 03/05/22-03/10/[address] JEREL WINTER [address]
[2022-03-06] MEDS: CALCIUM ACETATE 667 MG TAB PO SCH ×2 (12:11→17:00)
[2022-03-06] MEDS: NITROGLYCERIN 50 MG/D5W PREMIX 250 ML IV PRN (12:15)
--- NOTE | 2022-03-06 15:15 | NUR ---
HD DONE, VS WNL
--- NOTE | 2022-03-06 16:00 | NUR ---
SEEN AND EXAMINED BY DR KRUSE, ORDERS NOTED
[2022-03-06] MEDS: hydrALAZINE 25 MG TAB PO SCH (17:00)
--- NOTE | 2022-03-06 19:10 | NUR ---
RECEIVED REPORT ERNIE CUMMINGS RN. PT IS SITTING UP IN BED TALKING ON THE PHONE. HE'S REQUESTING A SANDWICH. HE HAS NO SIGNS OF DISTRESS AND HEIS VITAL SIGNS ARE WITHIN NORMAL LIMITS. HE IS ON A NIRTOGLYCERIN GTT FOR HYPERTENSION.PLAN TO TAPER OFF.
[2022-03-06] MEDS: ZOLPIDEM 5 MG TAB PO PRN (21:56)
[2022-03-06] MEDS: HYDROcodone/APAP 5/325 MG 1 TAB TAB PO PRN (21:57)
--- NOTE | 2022-03-06 22:00 | NUR ---
PT REFUSED BI PAP. STATES HE DON'T USE IT AT HOME.
[2022-03-07] VITALS (23 sets, daily range): BP systolic 115–151; BP diastolic 59–94
--- NOTE | 2022-03-07 01:00 | NUR ---
RESPIATORY THERAPIST PLACED PT ON 2L O2 VIA NASAL CANNULA FOR LOW SPO2 89-90. PT IS SLEEPING AND THE NITRO IS BEING TAPERED OFF.
--- NOTE | 2022-03-07 02:30 | NUR ---
ASSISTED PT WITH AM CARE. PT SAT AT THE BEDSIDE WHILE HIS LINEN WAS CHANGED. PT PROVED TO BE UNSTEADY ON HIS FEET ON THE RETURN TO BED AND WAS ASSISTED TO SAT ON THE BEDSIDE . HE WAS SLIGHTLY SOB AND ON LYING DOWN HE HAD A COUGHING EPISODE. BP 147/74.
--- NOTE | 2022-03-07 03:03 | NUR ---
ASSISTED PT WITH AN CARE, COMPLETE LINEN CHANGE.PT SAT AT SIDE OF CARLO BUT WAS UNSTEADY ON HIS FEET. ASSISTED BACK TO BED
[2022-03-07] MEDS: HYDROcodone/APAP 5/325 MG 1 TAB TAB PO PRN ×2 (05:23→16:40)
[2022-03-07 05:49] LABS: BASOPHILS % (AUTO) 0.3 % (0.0-2.0); EOSINOPHILS % (AUTO) 0.8 % (0.0-4.0); HEMATOCRIT 23.3 % (36-52); HEMOGLOBIN 8.2 g/dL (12.0-18.0); LYMPHOCYTES % (AUTO) 24.4 % (20.5-51.1); MEAN CORPUSCULAR HEMOGLOBIN 33 pg (27-31); MEAN CORPUSCULAR HGB CONC 35 g/dL (33-37); MEAN CORPUSCULAR VOLUME 94.8 fL (80-94); MONOCYTES # (AUTO) 0.3 K/uL (0.8-1.0); MONOCYTES % (AUTO) 8.2 % (1.7-9.3); NEUTROPHILS # (AUTO) 2.7 K/uL (1.8-7.7); NEUTROPHILS % (AUTO) 66.3 % (42.2-75.2); PLATELET COUNT (AUTO) 156 K/uL (140-450); RED BLOOD CELL COUNT(AUTO) 2.46 MIL/uL (4.20-6.10)
[2022-03-07 06:14] LABS: ALBUMIN 2.4 g/dL (3.4-5.0); ANION GAP 14.5 (8-16); CARBON DIOXIDE 27.9 mmol/L (21-32); PHOSPHORUS 6.5 mg/dL (2.5-4.9); POTASSIUM 4.4 mmol/L (3.5-5.1); TOTAL BILIRUBIN 0.5 mg/dL (0.0-1.0)
[2022-03-07 06:19] LABS: CREATININE 11.1 mg/dL (0.6-1.3)
--- NOTE | 2022-03-07 07:10 | NUR ---
RECEIVED BEDSIDE REPORT FROM MELISA NAIK FOR CONTINUITY OF CARE. A/OX4, PERRLA, ABLE TO MAKE NEEDS KNOWN. ROOM AIR, 98% SATURATION. SR ON MONITOR, 22G IV TO R HAND INFUSING NITROGLYCERIN DRIP AT 20 MCG/MIN. NONPITTING EDEMA TO L ARM. OLIGURIC, USES URINAL. TUNNELED L IJ HD CATH IN PLACE. LAC AV SHUNT NOT CURRENTLY IN USE. SELF TURN. STANDARD ISOLATION, CALL LIGHT WITHIN REACH, BED IN LOWEST POSITION.
[2022-03-07] MEDS: VIT-B COMP/VIT-C/FOLIC ACID 1 TAB PO SCH (08:09)
[2022-03-07] MEDS: carvediloL 12.5 MG TAB PO SCH ×2 (08:10→21:20)
[2022-03-07] MEDS: CALCIUM ACETATE 667 MG TAB PO SCH ×3 (08:12→16:41)
[2022-03-07] MEDS: NIFEdipine 90 MG TABER PO SCH (08:12)
[2022-03-07] MEDS: CLONIDINE HYDROCHLORIDE 0.1 MG TAB PO SCH ×2 (08:14→21:19)
[2022-03-07] MEDS: DOCUSATE SODIUM 100 MG GELCAP PO SCH (08:15)
[2022-03-07] MEDS: hydrALAZINE 25 MG TAB PO SCH ×2 (08:15→12:03)
[2022-03-07] MEDS: ATORVASTATIN 20 MG TAB PO SCH (08:16)
--- NOTE | 2022-03-07 12:00 | NUR ---
PT CURRENTLY ON ROOM AIR, SATURATION 93%-96%
--- NOTE | 2022-03-07 12:15 | NUR ---
SEEN AND EXAMINED BY DR. COTTER. ORDERS RECEIVED.
--- NOTE | 2022-03-07 12:20 | NUR ---
SEEN AND EXAMINED BY DR. KRUSE. NO NEW ORDERS.
[2022-03-07] MEDS: minoxidiL 2.5 MG TAB PO SCH ×2 (12:27→21:21)
--- NOTE | 2022-03-07 13:00 | NUR ---
DISCHARGE PLANNING PATIENT IS A 57-YEAR-OLD MALE ADMITTED IN THE [facility]/ED ON 03/05/2022. DUE TO COMPLAINTS OF NECK SHORTNESS OF BREATH. PATIENT HAS MEDICAL HISTORY OF ESRD, CAD AND HYPERTENSION. SW MEET WITH PATIENT AT BEDSIDE TO DISCUSS AND GATHER HIS COLLATERAL INFORMATION. PATIENT REPORTED LIVING AT HIS APARTMENT ALONE. PER PATIENT HAS LIMITED FAMILY SUPPORT FROM HIS SISTER AND SON. PER PATIENT HIS SISTER BRUCE RODRIGUES IS HIS EMERGENCY CONTACT AND MEDICAL DESICION MAKER. PATIENT REPORTED HAVING ADVANCE DIRECTIVES AND WAS NOT INTERESTED ON GETTING INF. PACKET PROVIDED BY THESE [employer] STR[employer]PER DURING THE VISIT. PATIENT REPORTED NOT HAVING ANY ISSUES GETTING OR TAKING HIS MEDICATIONS FROM THE [facility] IN [facility]. PATIENT STATED THAT HE IS INDEPENDENT AND HAS NO DME AT HOME. PATIENT HAS DIALYSIS FRIDAY, FRIDAY AND FRIDAY AT [facility] AT ABOUT 8:30AM PER PATIENT HE STRUGGLES WITH CONSISTENCY ON HIS DIALYSIS DUE TO LACK OF MOTIVATION, PATIENT REPORTED NEEDED MENTAL HEALTH PROVIDERS TO GET COUNSELING. SW PROVIDED PATIENT WITH RESOURCES TO IHSS/DPSS AND MENTAL HEALTH LIST OF PROVIDERS IN THE AREA. SW DISCUSSED WITH PATIENT ABOUT THE IMPORTANCE OF MAKING A FOLLOW UP APPOINTMENT WITH HIS PCP WITHIN 7 DAYS OF DISCHARGE FROM [facility]. PATIENT AGREED AND REPORTED THAT HE WILL MAKE HIS OWN APPOINTMENT TO SEE HIS PCP. WHO HE LAST SAW ABOUT MONTH AGO ACCORDING TO PATIENT. PER PATIENT HE WILL BE GOING BACK HOME AND HAS NO ONE THAT CAN PICK HIM UP AND TAKE HIM HOME THEREFORE; HE WILL BE NEEDING TRANSPORTATION HOME WHEN HE IS READY AND STABLE TO DISCHARGE FROM [facility]. PATIENT THANKED SW FOR THE INFORMATION PROVIDED. SW/CM WILL FOLLOW UP NEEDED.
--- NOTE | 2022-03-07 13:20 | NUR ---
SEEN AND EXAMINED BY DR. HAWKINS. NO NEW ORDERS.
--- NOTE | 2022-03-07 16:40 | NUR ---
C/O PAIN 6/10 HEADACHE. ADMINISTERED PRN HYDROCODONE.
--- NOTE | 2022-03-07 18:49 | NUR ---
PT REPORTED 0/10 PAIN
--- NOTE | 2022-03-07 19:20 | NUR ---
ENDORSED BEDSIDE REPORT TO BETH APPLIED PSYCHOLOGY TEACHER RN, FOR CONTINUITY OF CARE.
--- NOTE | 2022-03-07 19:30 | NUR ---
RECEIVED PT. FROM DAY SHIFT GUMARO INMAN. PT. WIDE AWAKE, ALERT AND ORIENTED. ON ROOM AIR WITH O2 SAT 96%. IV TO RIGHT HAND 22G CAPPED AND FLUSHED. LEFT CHEST KOREY CATHETER INTACT. LAST HEMODIALYSIS 03/06/22 PER REPORT WITH 2L OUTPUT. PT. WITH LEFT ARM AV SHUNT. SINUS RHYTHM ON THE MONITOR. PT. USE URINAL. SKIN INTACT. ON A RENAL DIET AND WITH GOOD APPETITE. PT. DENIES PAIN. ABLE TO REPOSITION HIMSELF IN BED. WILL CONT. TO MONITOR.
--- NOTE | 2022-03-07 22:10 | NUR ---
PAGED DR. VILLAVICENCIO TO GET AN ORDER IF PT. CAN TRANSFER TO TELEMETRY UNIT, SINCE NTROGYCERIN DRIP OFF SINCE 1400 TODAY. HE CALLED BACK AND ORDERED TO OKAY TO TRANSFER TO TELEMETRY UNIT.
[2022-03-08] VITALS (8 sets, daily range): BP systolic 117–139; BP diastolic 67–92
[2022-03-08 05:56] LABS: BASOPHILS % (AUTO) 0.6 % (0.0-2.0); EOSINOPHILS # (AUTO) 0.1 K/uL (0-0.4); EOSINOPHILS % (AUTO) 1.4 % (0.0-4.0); HEMATOCRIT 24.7 % (36-52); HEMOGLOBIN 8.9 g/dL (12.0-18.0); LYMPHOCYTES # (AUTO) 1.2 K/uL (2.0-11.5); LYMPHOCYTES % (AUTO) 29.5 % (20.5-51.1); MEAN CORPUSCULAR HEMOGLOBIN 34 pg (27-31); MEAN CORPUSCULAR HGB CONC 36 g/dL (33-37); MEAN CORPUSCULAR VOLUME 93.9 fL (80-94); MONOCYTES # (AUTO) 0.3 K/uL (0.8-1.0); MONOCYTES % (AUTO) 6.3 % (1.7-9.3); NEUTROPHILS # (AUTO) 2.6 K/uL (1.8-7.7); NEUTROPHILS % (AUTO) 62.2 % (42.2-75.2); PLATELET COUNT (AUTO) 180 K/uL (140-450); RED BLOOD CELL COUNT(AUTO) 2.63 MIL/uL (4.20-6.10); RED CELL DISTRIBUTION WIDTH 13.7 % (11.6-13.7); WHITE BLOOD COUNT (AUTO) 4.2 K/uL (4.8-10.8)
[2022-03-08 06:30] LABS: ALBUMIN 2.4 g/dL (3.4-5.0); ANION GAP 18.2 (8-16); CARBON DIOXIDE 24.3 mmol/L (21-32); PHOSPHORUS 7.6 mg/dL (2.5-4.9); POTASSIUM 4.5 mmol/L (3.5-5.1); TOTAL BILIRUBIN 0.3 mg/dL (0.0-1.0)
[2022-03-08 06:39] LABS: CREATININE 13.6 mg/dL (0.6-1.3)
--- NOTE | 2022-03-08 07:20 | NUR ---
RECEIVED BEDSIDE REPORT FROM BETH NAIK FOR CONTINUITY OF CARE. A/OX4, PERRLA, ABLE TO MAKE NEEDS KNOWN. ROOM AIR, 96% SATURATION. SR ON MONITOR, 22G IV TO R HAND SALINE LOCK. NONPITTING EDEMA TO L ARM. OLIGURIC, USES URINAL. TUNNELED L IJ HD CATH IN PLACE. LAC AV SHUNT NOT CURRENTLY IN USE. SELF TURN. STANDARD ISOLATION, CALL LIGHT WITHIN REACH, BED IN LOWEST POSITION.
--- NOTE | 2022-03-08 07:30 | NUR ---
PT SLEEPING, EQUAL CHEST RISE, CLEAR ON AUSCULTATION, SATURATION ON ROOM AIR IS 94%-98%. WILL CONTINUE TO MONITOR.
--- NOTE | 2022-03-08 07:37 | NUR ---
REPORT GIVEN TO GUMARO INMAN FOR CONINUITY OF CARE. ALL QUESTIONS ANSWERED.
[2022-03-08] MEDS: VIT-B COMP/VIT-C/FOLIC ACID 1 TAB PO SCH (08:09)
[2022-03-08] MEDS: minoxidiL 2.5 MG TAB PO SCH (08:10)
[2022-03-08] MEDS: ATORVASTATIN 20 MG TAB PO SCH (08:11)
[2022-03-08] MEDS: CALCIUM ACETATE 667 MG TAB PO SCH ×2 (08:11→11:29)
[2022-03-08] MEDS: CLONIDINE HYDROCHLORIDE 0.1 MG TAB PO SCH (08:12)
[2022-03-08] MEDS: carvediloL 12.5 MG TAB PO SCH (08:12)
[2022-03-08] MEDS: DOCUSATE SODIUM 100 MG GELCAP PO SCH (08:13)
[2022-03-08] MEDS: NIFEdipine 90 MG TABER PO SCH (08:13)
--- NOTE | 2022-03-08 11:00 | NUR ---
SEEN AND EXAMINED BY DR. KRUSE. NOTIFIED MD OF T WAVE INVERSION. ORDERED 12 LEAD EKG. Addendum: 03/08/22 at 1707 by Juli Lopez RN EKG SHOWS T WAVE INVERSION COMPARED TO POSITIVE T WAVES ON PREVIOUS 12 LEAD EKG ON 03/05/22.
--- NOTE | 2022-03-08 12:10 | NUR ---
SEEN AND EXAMINED BY DR. HAWKINS. PT OK FOR DISCHARGE. Addendum: 03/08/22 at 1341 by Juli Lopez RN SHOWED MD 12 LEAD EKG RESULTS. NO NEW ORDERS.
--- NOTE | 2022-03-08 12:20 | NUR ---
SEEN AND EXAMINED BY DR. COTTER. PT OK FOR DISCHARGE. REQUESTED PT TO FOLLOW UP WITH OUTPATIENT DIALYSIS TOMORROW TO GET BACK ON SCHEDULE.
[2022-03-08] MEDS ORDERED: LON2.5 PO (12:40)
--- NOTE | 2022-03-08 15:10 | NUR ---
DC PLANNING: ARRANGED TRANSPORT WITH [facility] GOING HOME AFTER DIALYSIS MOBILE DEVELOPER TIME WILL BE 1800 WITH [facility] TRANSPORT NOTIFIED RN AT ICU CM TO FOLLOW
--- NOTE | 2022-03-08 15:20 | NUR ---
DIALYSIS FINISHED. PT TOLERATED WELL. 2.4 L OUTPUT.
--- NOTE | 2022-03-08 16:00 | NUR ---
ALL DISCHARGE PAPERWORK SIGNED. AWAITING TRANSPORT SCHEDULED BY CASE MANAGEMENT. SCHEDULED INSURANCE SALES EXECUTIVE TIME IS ROUGHLY 1830.
[2022-03-08] MEDS ORDERED: CALCIUM ACETATE 667 MG TAB PO SCH (17:00)
--- NOTE | 2022-03-08 19:05 | NUR ---
TRANSPORT HAS YET TO SHOW UP. PT CALLED FAMILY MEMBER TO PICK HIM UP. PT TRANSPORTED TO LOBBY VIA WHEELCHAIR WITH ALL BELONGINGS.
[2022-03-09] MEDS ORDERED: EPOETIN ALFA-EPBX 4,000 UNITS/ML VIAL IV SCH (09:00)
== END 2022-03-08 19:00 | disposition home or self-care (01) | DRG 133 ==
LOC: MED 08:55 → MTU 11:19 → MIC 11:19
PROVIDERS: ADMIT Hospitalist; ATTEND Hospitalist
PROC: 5A1D70Z Performance of Urinary Filtration, Intermittent, Less than 6 Hours Per Day (ICD-10-PCS; principal; 2022-03-05)
PROC: 5A09357 Assistance with Respiratory Ventilation, Less than 24 Consecutive Hours, Continuous Positive Airway Pressure (ICD-10-PCS; 2022-03-05)
PROC: 5A09357 Assistance with Respiratory Ventilation, Less than 24 Consecutive Hours, Continuous Positive Airway Pressure (ICD-10-PCS; 2022-03-06)
PROC: 5A1D70Z Performance of Urinary Filtration, Intermittent, Less than 6 Hours Per Day (ICD-10-PCS; 2022-03-07)
DX: J96.01 Acute respiratory failure with hypoxia (principal); I13.2 Hypertensive heart and chronic kidney disease with heart failure and with stage 5 chronic kidney disease, or end stage renal disease; I24.8 Other forms of acute ischemic heart disease; J81.1 Chronic pulmonary edema; E83.51 Hypocalcemia; I16.1 Hypertensive emergency; N18.6 End stage renal disease; I50.9 Heart failure, unspecified; Z91.14 Patient's other noncompliance with medication regimen; E87.5 Hyperkalemia; R77.8 Other specified abnormalities of plasma proteins; Z20.822 Contact with and (suspected) exposure to COVID-19; I25.10 Atherosclerotic heart disease of native coronary artery without angina pectoris; Z99.2 Dependence on renal dialysis
CPT/HCPCS: 36415; 71045; 74018; 80053; 83690; 83735; 83880; 84100; 84484; 85025; 87081; 93005; 93971; 94660; 96365; 96375; 99291; J0610; J1644; J1815; J2270; J2997; J3490; Q0092

== ENCOUNTER 2022-09-03 09:34 | Inpatient (IN) | payer OTHER ==
--- NOTE | 2022-09-02 23:00 | NUR ---
PATIENT HAD BP OF [address] ALCANTAR WAS NOTIFIED BY ER AND MD ORDERED NORVASC TO BE GIVEN AND TO REASSESS AFTER 30 MINUTES. IF BP STILL OVER 160 GIVE HYDRALAZINE. REASSESSED PATIENT'S BP, BP WAS 224/115, GAVE PATIENT HYDRALAZINE. REASSESSED PATIENTS BP, BP WAS 212/119. MESSAGED DR. ALCANTAR; RESPONDED TO GIVE PATIENT LABETOLOL 10MG IVP Q10MIN PRN FOR 3 DOSES TOTAL.
[~2022-09-03] VITALS: Ht 177.8 cm; Wt 107.5 kg
[~2022-09-03 09:34] MED LIST changes: +LON2.5 PO
[2022-09-03 09:41] VITALS: BP 197/116
--- NOTE | 2022-09-03 09:54 | NUR ---
57 YO MALE. BIBA. PATIENT WAS IN DIALYSIS IN [facility]. PATIENT WAS 20 MINUTES IN 400 CC REMOVED. PATIENT STATES HE STARTED DRY HEAVING, HE HAS BEEN HAVING ABDOMINAL PAIN AND DIARRHEA OVER THE WEEKEND. STATES HIS PAIN RIGHT NOW ABDOMEN, NO ALLERGIES. PMH. HTN, AL, CKD.
--- NOTE | 2022-09-03 10:15 | NUR ---
BLOOD DRAWN AND SENT TO LAB
[2022-09-03] MEDS ORDERED: fentaNYL citrate 0.05 MG/ML VIAL IVP ONE (11:30)
[2022-09-03] MEDS ORDERED: ONDANSETRON 4 MG/2 ML VIAL IVP ONE (11:30)
--- NOTE | 2022-09-03 11:48 | NUR ---
US AT BEDSIDE
[2022-09-03 11:49] LABS: BASOPHILS % (AUTO) 0.5 % (0.0-2.0); EOSINOPHILS # (AUTO) 0.1 K/uL (0-0.4); EOSINOPHILS % (AUTO) 1.7 % (0.0-4.0); HEMATOCRIT 29.3 % (36-52); HEMOGLOBIN 9.9 g/dL (12.0-18.0); LYMPHOCYTES # (AUTO) 0.7 K/uL (2.0-11.5); LYMPHOCYTES % (AUTO) 17.7 % (20.5-51.1); MEAN CORPUSCULAR HEMOGLOBIN 32 pg (27-31); MEAN CORPUSCULAR HGB CONC 34 g/dL (33-37); MEAN CORPUSCULAR VOLUME 95.7 fL (80-94); MONOCYTES # (AUTO) 0.1 K/uL (0.8-1.0); MONOCYTES % (AUTO) 3.7 % (1.7-9.3); NEUTROPHILS # (AUTO) 2.9 K/uL (1.8-7.7); NEUTROPHILS % (AUTO) 76.4 % (42.2-75.2); PLATELET COUNT (AUTO) 220 K/uL (140-450); RED BLOOD CELL COUNT(AUTO) 3.07 MIL/uL (4.20-6.10); RED CELL DISTRIBUTION WIDTH 16.7 % (11.6-13.7); WHITE BLOOD COUNT (AUTO) 3.8 K/uL (4.8-10.8)
[2022-09-03 12:17] LABS: ALBUMIN 3.5 g/dL (3.4-5.0); ANION GAP 15.9 (8-16); CARBON DIOXIDE 26.3 mmol/L (21-32); POTASSIUM 5.2 mmol/L (3.5-5.1); TOTAL BILIRUBIN 0.8 mg/dL (0.0-1.0)
[2022-09-03 12:23] LABS: LIPASE 157 U/L (73-393); MAGNESIUM 2.1 mg/dL (1.8-2.4); PHOSPHORUS 5.7 mg/dL (2.5-4.9)
[2022-09-03 12:27] LABS: CREATININE 12.3 mg/dL (0.6-1.3)
[2022-09-03 13:03] LABS: APPEARANCE,URINE CLEAR (CLEAR); BILIRUBIN,URINE NEGATIVE (NEGATIVE); BLOOD, URINE 1+ (NEGATIVE); COLOR,URINE YELLOW (YELLOW); LEUKOCYTE ESTERASE ,URINE NEGATIVE (NEGATIVE); NITRITE, URINE NEGATIVE (NEGATIVE); PH,URINE 7.5 (5.0-9.0); UGLUCOSE TRACE (NEGATIVE)
[2022-09-03] MEDS ORDERED: PIPERACILLIN/TAZOBACTAM 3.375 GM in DEXTROSE 5% 50 ML IV ONE (13:35)
[2022-09-03] MEDS ORDERED: PIPERACILLIN/TAZOBACTAM 3.375 GM VIAL IV ONE (13:50)
[2022-09-03] MEDS ORDERED: ONDANSETRON 4 MG/2 ML VIAL IVP PRN (14:30)
[2022-09-03] MEDS ORDERED: POTASSIUM CHLORIDE 10 MEQ TABER PO PRN (14:30)
[2022-09-03] MEDS ORDERED: hydrALAZINE 20 MG/ML VIAL IVP ONE (14:35)
--- NOTE | 2022-09-03 14:56 | NUR ---
PATIENT STATES RELIEF OF PAIN. 0/10
[2022-09-03] MEDS: HYDROcodone/APAP 5/325 MG 1 TAB TAB PO PRN (15:33)
--- NOTE | 2022-09-03 17:19 | NUR ---
P.T. NOTES P.T. EVAL COMPLETED; REFER TO EVAL FOR DETAILS.
--- NOTE | 2022-09-03 19:23 | NUR ---
Patient resting in bed, A/Ox4, chest rise and fall symmetrical, no c/o pain or s/s of distress, on monitor.
--- NOTE | 2022-09-03 20:04 | NUR ---
Dr. Phillips paged for callback to request PRN BP medication.
--- NOTE | 2022-09-03 20:10 | NUR ---
Patient will be admitted to care of Dr. Leal, Dr. Jacqueline schultz. Telemetry Nurse Mando RN verbally informed of Dr. Phillips covering, Telemetry Nurse Mando RN verbally acknowledged understanding. Admited to Tele. Will go to room 115A. Belongings list completed. Report to Telemetry Nurse Mando RN. Telemetry Nurse Mando RN verbalized uderstanding of report, no further questions. Telemetry Nurse Mando RN also verbalized understanding that patient was given Norvasc 10mg PO now, ordered by Dr. Phillips, and Telemetry Nurse Mando RN stated that he "will recheck BP and give Hydralazine PRN IVP if needed."
[2022-09-03] MEDS ORDERED: amLODIPine 5 MG TAB ONE (20:12)
[2022-09-03] MEDS: amLODIPine 5 MG TAB PO SCH (20:18)
[2022-09-03 20:30] VITALS: BP 224/115
--- NOTE | 2022-09-03 21:00 | NUR ---
RECEIVED REPORT FROM ER NURSE JOSEPH FOR CONTINUITY OF CARE. PATIENT IS A&O X4. PATIENT IS ON ROOM AIR, BREATHING IS NORMAL WITH SYMMETRICAL RISE AND FALL OF CHEST. IV IS A 20G RAC, NO FLUIDS RUNNING AT THIS TIME. PATIENT IS AWAKE, SITTING HIGH-FOWLERS IN BED. BED IS IN LOWEST POSITION, WHEELS LOCKED, CALL LIGHT IN PLACE. WILL CONTINUE TO OBSERVE PATIENT.
[2022-09-03] MEDS: hydrALAZINE 20 MG/ML VIAL IVP PRN (21:15)
[2022-09-03] MEDS ORDERED: PIPERACILLIN/TAZOBACTAM 2.25 GM VIAL IV ONE (21:21)
[2022-09-03] MEDS: PIPERACILLIN/TAZOBACTAM 2.25 GM in DEXTROSE 5% 50 ML IV SCH (21:28)
[2022-09-03] MEDS: LABETALOL 20 MG/4 ML VIAL IVP PRN (23:18)
[2022-09-04] VITALS: BP 193/104
[2022-09-04] MEDS: LABETALOL 20 MG/4 ML VIAL IVP PRN ×2 (00:36→02:08)
[2022-09-04 04:00] VITALS: BP 194/116
[2022-09-04] MEDS: HYDROcodone/APAP 5/325 MG 1 TAB TAB PO PRN ×2 (04:59→21:07)
[2022-09-04] MEDS: hydrALAZINE 20 MG/ML VIAL IVP PRN ×2 (06:00→11:36)
--- NOTE | 2022-09-04 06:15 | NUR ---
ADMINISTERED ALL 3 DOSES OF LABETOLOL TO PATIENT. BP ONLY GOT LOW 193/104, BUT THEN WOULD GO BACK UP ABOVE 200. NOTIFIED MD AT 0452 THAT BP WAS AT 194/116. ADMINISTERED ANOTHER DOSE OF HYDRALAZINE AT 0600 (BP WAS NOW AT 214/125, HR 79). STILL PENDING MD RESPONSE. WILL CONTINUE TO OBSERVE PATIENT.
[2022-09-04 06:54] LABS: BASOPHILS % (AUTO) 1.2 % (0.0-2.0); EOSINOPHILS # (AUTO) 0.1 K/uL (0-0.4); EOSINOPHILS % (AUTO) 1.6 % (0.0-4.0); HEMATOCRIT 31.1 % (36-52); HEMOGLOBIN 10.4 g/dL (12.0-18.0); LYMPHOCYTES # (AUTO) 0.8 K/uL (2.0-11.5); LYMPHOCYTES % (AUTO) 19.9 % (20.5-51.1); MEAN CORPUSCULAR HEMOGLOBIN 32 pg (27-31); MEAN CORPUSCULAR HGB CONC 33 g/dL (33-37); MEAN CORPUSCULAR VOLUME 96.1 fL (80-94); MONOCYTES # (AUTO) 0.1 K/uL (0.8-1.0); MONOCYTES % (AUTO) 3.1 % (1.7-9.3); NEUTROPHILS # (AUTO) 2.9 K/uL (1.8-7.7); NEUTROPHILS % (AUTO) 74.2 % (42.2-75.2); PLATELET COUNT (AUTO) 251 K/uL (140-450); RED BLOOD CELL COUNT(AUTO) 3.23 MIL/uL (4.20-6.10); RED CELL DISTRIBUTION WIDTH 17.4 % (11.6-13.7)
[2022-09-04 07:08] LABS: ALBUMIN 3.6 g/dL (3.4-5.0); ANION GAP 19.4 (8-16)
--- NOTE | 2022-09-04 07:30 | NUR ---
PATIENT'S BP AT REASSESSMENT OF HYDRALAZINE WAS 215/121. INFORMED DAY SHIFT NURSE GAUTAM.
--- NOTE | 2022-09-04 07:30 | NUR ---
ENDORSED TO DAY SHIFT NURSE GAUTAM FOR CONTINUITY OF CARE. PATIENT IS STABLE.
[2022-09-04 08:00] VITALS: BP 215/121
[2022-09-04 08:04] LABS: CREATININE 14.3 mg/dL (0.6-1.3); POTASSIUM 6.4 mmol/L (3.5-5.1)
[2022-09-04] MEDS: PIPERACILLIN/TAZOBACTAM 2.25 GM in DEXTROSE 5% 50 ML IV SCH ×2 (09:38→22:20)
[2022-09-04] MEDS: DOCUSATE SODIUM 100 MG GELCAP PO SCH (09:42)
--- NOTE | 2022-09-04 09:58 | NUR ---
PATIENT HAS BEEN SCREENED AND CATEGORIZED HIGH NUTRITION RISK. PATIENT WILL BE SEEN WITHIN 1-2 [address]YS OF ADMISSION. JOAO HICKS RD
[2022-09-04] MEDS: NIFEdipine 90 MG TABER PO SCH (10:15)
[2022-09-04] MEDS: hydrALAZINE 25 MG TAB PO SCH ×3 (10:17→17:53)
[2022-09-04] MEDS: MORPHINE SULFATE 4 MG/ML SYR IVP PRN ×2 (11:42→20:57)
[2022-09-04 12:00] VITALS: BP 210/126
[2022-09-04] MEDS ORDERED: CLONIDINE HYDROCHLORIDE 0.1 MG TAB PO PRN (13:55)
--- NOTE | 2022-09-04 15:05 | NUR ---
DC PLANNING ASSESSMENT COMPLETE PLEASE REFER TO ASSESSMENT FOR ADDITIONAL DETAILS PT IS A 57 YR OLD FEMALE ADMITTED TO [facility] FROM HOME WITH DX OF ACALCULOUS CHOLECYSTITIS. 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 PT REPORTS BEING SOBER SINCE 2006' PT REPORTS BEING UPSET WITH CARE RECEIVED AND REPORTS HE WAS READY TO AMA HE HAS NOT BEEN UPDATED ON POC. SW DISCUSSED RISKS OF AMA-ING. PT RECEPTIVE AND REPORTS THAT HE IS HUNGRY AND IS UPSET HIS BP HAS NOT COME DOWN. SW ACTIVELY LISTENED AND ENSURED THAT DR WOULD BE IN TO SPEAK WITH HIM AND PROVIDE A PLAN OF CARE WHEN ROUNDING. PT REPORTS DC PLAN IS TO RETURN HOME, ONCE MEDICALLY STABLE. Addendum: 09/04/22 at 1506 by Erasmo Pham SS Amended: Links added.
--- NOTE | 2022-09-04 15:24 | NUR ---
PATIENT IS ADMIT FROM HOME FOR ABDOMINAL PAIN W/ NAUSEA/VOMIT; LAB RESULT INDICT THAT PATIENT'S POTASSIUM 6.4, BUN 50, CREATININE 14.3, DR. DELA CRUZ ORDERED STAT DIALYSIS AND 4 LITER REMOVED. BP STILL HIGH. WILL CONTINUE TO MONITOR.
--- NOTE | 2022-09-04 15:53 | NUR ---
09/04/22 RD INITIAL ASSESSMENT COMPLETED PLEASE REFER TO NUTRITION ASSESSMENT UNDER CARE ACTIVITY FOR ESTIMATED NUTRITIONAL NEEDS. 1. MONITOR NPO STATUS 2. WHEN/IF MEDICALLY APPROPRIATE RECOMMEND CLEAR LIQUID DIET ADVANCING TO RENAL DIET TOLERATED 3. MONITOR GI, PO INTAKE, NUTRITION RELATED LAB VALUES. 4. RD TO FOLLOW-UP 2-3 DAYS, HIGH RISK REVIEWED BY JEREL WINTER RD
[2022-09-04 16:00] VITALS: BP 216/106
--- NOTE | 2022-09-04 19:13 | NUR ---
ENDORSE PATIENT IN STABLE CONDITION TO PM SHIFT NURSE AFTER 4 LITER REMOVED FROM HEMODIALYSIS. R. AC IV SITE SALINE LOCK. PATIENT'S SBP STILL OVER 200 AND MD AWARE.
--- NOTE | 2022-09-04 19:14 | NUR ---
RECEIVED PT FROM MORNING SHIFT NURSE. PT IS AOX4, AMBULATORY, ABLE TO FOLLOW COMMAND AND ABLE TO VERBALIZE NEEDS. PT IS ON ROOM AIR AND ON CLEAR LIQUID DIET. PT HAS DIALYSIS ACCESS ON RIGHT IJ TUNNEL CATHETER AND LEFT ARM SHUNT AND HAS ABDOMINAL PERITONEAL DIALYSIS ACCESS. PT HAS IV ON LEFT AC GAUGE 20, SALINE LOCK. PT SKIN SKIN INTACT. NO S/S OF RESPIRATORY DISTRESS NOTED. ALL SAFETY MEASURES IMPLEMENTED. BED IN LOW POSITION, BED WHEELS ON LOCK AND CALL LIGHT WITHIN REACH.
--- NOTE | 2022-09-04 19:15 | NUR ---
PT IS HYPERTENSIVE AND ACCORDING TO NURSE DR. FREEMAN KNEW ABOUT IT.
[2022-09-04 20:00] VITALS: BP 175/77
[2022-09-04] MEDS: amLODIPine 5 MG TAB PO SCH (20:45)
--- NOTE | 2022-09-04 20:46 | NUR ---
HEPARIN, AND NORVASC WAS GIVEN TO PT PER MD ORDER. ALL SAFETY MEASURES IMPLEMENTED. BED IN LOW POSITION, BED WHEELS ON LOCK AND CALL LIGHT WITHIN REACH.
--- NOTE | 2022-09-04 20:57 | NUR ---
MORPHINE WASNT GIVEN TO PT DUE TO IV IS INFILTRATED
--- NOTE | 2022-09-04 21:07 | NUR ---
NORCO WAS GIVEN TO PT DUE TO GEN. PAIN WITH PAIN SCALE OF 6/10. ALL SAFETY MEASURES IMPLEMENTED. BED IN LOW POSITION, BED WHEELS ON LOCK AND CALL LIGHT WITHIN REACH.
--- NOTE | 2022-09-04 21:40 | NUR ---
NOTIFIED DR. VILLAVICENCIO THAT PT IS HARD STICK AND TRIED IT MANY TIMES WITH DIFFERENT NURSES. DR. VILLAVICENCIO ORDER PICC LINE.
--- NOTE | 2022-09-04 21:52 | NUR ---
NOTIFIED ADRIANA FOR PICC LINE INSERTION
--- NOTE | 2022-09-04 22:00 | NUR ---
INSERTED NEW IV ON RIGHT HAND GAUGE 22. IV IS NOW PATENT AND FLUSHING WELL.
--- NOTE | 2022-09-04 22:20 | NUR ---
ZOSY WAS GIVEN TO PT PER MD ORDER. ALL SAFETY MEASURES IMPLEMENTED. BED IN LOW POSITION, BED WHEELS ON LOCK AND CALL LIGHT WITHIN REACH.
[2022-09-05] VITALS: BP 213/87
[2022-09-05] MEDS: hydrALAZINE 20 MG/ML VIAL IVP PRN (00:13)
--- NOTE | 2022-09-05 00:13 | NUR ---
HYDRALAZINE WAS GIVEN TO PT DUE TO BP-213/87 WITH PULSE OF 87. ALL SAFETY MEASURES IMPLEMENTED. BED IN LOW POSITION, BED WHEELS ON LOCK AND CALL LIGHT WITHIN REACH.
--- NOTE | 2022-09-05 01:39 | NUR ---
PT BP IS STILL HIGH 201/98, ASKED THE PHARMACIST BRIGHT AND CHARGE NURSE ROSALIA IF IT SAFE TO GIVE CATAPRES TO PT AFTER GIVING HYDRALAZINE AFTER 1 HR. THEY ALLOW ME GIVE CATAPRES TO PT DUE TO BP IS STILL HIGH. CATAPRES WAS GIVEN, WILL REASSESS THE PT AT 0309.
--- NOTE | 2022-09-05 03:09 | NUR ---
RE-ASSESSMENT OF VS AFTER TAKING CATAPRES. BP-119/85 WITH PULSE OF 97. PT IS ASYMPTOMATIC. NO COMPLAIN OF PAIN AND NO S/S OF RESPIRATORY DISTRESS. DOCTORS AWARE THAT BP IS HIGH. WILL CLOSELY MONITOR THE PT'S BP. ALL SAFETY MEASURES IMPLEMENTED. BED IN LOW POSITION, BED WHEELS ON LOCK AND CALL LIGHT WITHIN REACH.
[2022-09-05 04:00] VITALS: BP 199/85
--- NOTE | 2022-09-05 04:00 | NUR ---
PT IS ON SLEEP. CHEST RISE AND FALL SYMMETRICALLY NOTED. RESPIRATION IS EVEN AND UNLABORED. ALL SAFETY MEASURES IMPLEMENTED. BED IN LOW POSITION, BED WHEELS ON LOCK AND CALL LIGHT WITHIN REACH.
--- NOTE | 2022-09-05 06:40 | NUR ---
STUDENT TEACHING COORDINATOR PAYAL HAD HARD TIME TO GET BLOOD FROM PT. SHE WILL COME BACK LATER AND ASK HELP FOR ANOTHER STUDENT TEACHING COORDINATOR TO HAVE BLOOD SAMPLE.
--- NOTE | 2022-09-05 07:32 | NUR ---
PT IS STABLE. ENDORSED PT TO MORNING NURSE FOR CONTINUITY OF CARE.
--- NOTE | 2022-09-05 07:48 | NUR ---
GOT REPORT FROM THE NIGHT NURSE, PT IS AWAKE NO SOB., DISCUSSED POC.[id number]
[2022-09-05 08:00] VITALS: BP 175/77
[2022-09-05] MEDS: NIFEdipine 90 MG TABER PO SCH (08:17)
[2022-09-05] MEDS: amLODIPine 5 MG TAB PO SCH (08:19)
[2022-09-05] MEDS: DOCUSATE SODIUM 100 MG GELCAP PO SCH (08:19)
[2022-09-05] MEDS: hydrALAZINE 25 MG TAB PO SCH ×2 (08:20→13:00)
[2022-09-05] MEDS: PIPERACILLIN/TAZOBACTAM 2.25 GM in DEXTROSE 5% 50 ML IV SCH (08:28)
[2022-09-05] MEDS: MORPHINE SULFATE 4 MG/ML SYR IVP PRN (08:34)
--- NOTE | 2022-09-05 10:14 | NUR ---
PT IS SLEEPING.[id number]
[2022-09-05] MEDS: CLONIDINE HYDROCHLORIDE 0.1 MG TAB PO SCH ×2 (11:30→14:06)
[2022-09-05 12:00] VITALS: BP 220/98
[2022-09-05 12:42] LABS: BASOPHILS % (AUTO) 1.3 % (0.0-2.0); EOSINOPHILS # (AUTO) 0.1 K/uL (0-0.4); EOSINOPHILS % (AUTO) 1.9 % (0.0-4.0); HEMATOCRIT 29.2 % (36-52); HEMOGLOBIN 9.6 g/dL (12.0-18.0); LYMPHOCYTES # (AUTO) 0.6 K/uL (2.0-11.5); LYMPHOCYTES % (AUTO) 17.1 % (20.5-51.1); MEAN CORPUSCULAR HEMOGLOBIN 32 pg (27-31); MEAN CORPUSCULAR HGB CONC 33 g/dL (33-37); MEAN CORPUSCULAR VOLUME 96.6 fL (80-94); MONOCYTES # (AUTO) 0.2 K/uL (0.8-1.0); MONOCYTES % (AUTO) 4.6 % (1.7-9.3); NEUTROPHILS # (AUTO) 2.5 K/uL (1.8-7.7); NEUTROPHILS % (AUTO) 75.1 % (42.2-75.2); PLATELET COUNT (AUTO) 195 K/uL (140-450); RED BLOOD CELL COUNT(AUTO) 3.02 MIL/uL (4.20-6.10); RED CELL DISTRIBUTION WIDTH 17.2 % (11.6-13.7); WHITE BLOOD COUNT (AUTO) 3.3 K/uL (4.8-10.8)
[2022-09-05 12:54] LABS: ALBUMIN 3.5 g/dL (3.4-5.0); ANION GAP 14.8 (8-16); CARBON DIOXIDE 26.5 mmol/L (21-32); POTASSIUM 4.3 mmol/L (3.5-5.1)
[2022-09-05 13:02] LABS: CREATININE 11.7 mg/dL (0.6-1.3)
[2022-09-05] MEDS ORDERED: VANCOMYCIN 1,000 MG in DEXTROSE 5% 250 ML IV SCH (13:45)
[2022-09-05 16:00] VITALS: BP 158/91
[2022-09-05 17:13] VITALS: BP 158/91
--- NOTE | 2022-09-05 18:49 | NUR ---
PT PLANED FOR DISCHARGE, REFUSED TO SIGN DISCHARGE PAPER , WHEN THE NURSE WENT TO THE ROOM HE IS NO LONGER IN HIS ROOM, THE CHARGE NURSE NOTIFIED AND SO ALSO THE HOUSE SUP.THE IV TAKEN OUT BEFORE THIS HAPPENED PT LEFT THE TELE BOX IN BED DRESSED UP AFTER THE IV LINE TAKEN OUT.[id number]
[2022-09-05] MEDS ORDERED: cephALEXin 500 MG CAP PO SCH (21:00)
--- NOTE | 2022-09-06 12:43 | NUR ---
CALLED [facility] LOCATED AT [address] [facility] [id number]. SPOKE WITH AGUEDA WHO WAS ABLE TO HELP ME ARRANGE A FOLLOW UP APPOINTMENT FOR 09/11/2022 AT 0800. CALLED PATIENT BUT THERE WAS NO ANSWER AND PATIENT WAS LEFT A MESSAGE REGARDING THE ABOVE INFORMATION.
== END 2022-09-05 18:40 | disposition home or self-care (01) | DRG 720 ==
LOC: MED 09:34 → MTU 14:31
PROVIDERS: ADMIT Student in an Organized Health Care Education/Training Program; ATTEND Student in an Organized Health Care Education/Training Program
PROC: 5A1D70Z Performance of Urinary Filtration, Intermittent, Less than 6 Hours Per Day (ICD-10-PCS; principal; 2022-09-04)
PROC: 5A1D70Z Performance of Urinary Filtration, Intermittent, Less than 6 Hours Per Day (ICD-10-PCS; 2022-09-05)
DX: A41.9 Sepsis, unspecified organism (principal); I13.2 Hypertensive heart and chronic kidney disease with heart failure and with stage 5 chronic kidney disease, or end stage renal disease; K81.9 Cholecystitis, unspecified; N18.6 End stage renal disease; D63.8 Anemia in other chronic diseases classified elsewhere; E87.5 Hyperkalemia; I16.0 Hypertensive urgency; I25.10 Atherosclerotic heart disease of native coronary artery without angina pectoris; Z20.822 Contact with and (suspected) exposure to COVID-19; I50.9 Heart failure, unspecified; K21.9 Gastro-esophageal reflux disease without esophagitis; I25.2 Old myocardial infarction
CPT/HCPCS: 36415; 71045; 76705; 80053; 81003; 83605; 83690; 83735; 83880; 84100; 84484; 85025; 87040; 87070; 87075; 87186; 87205; 93005; 96365; 96375; 97110; 97112; 97116; 97530; 99291; J0360; J1644; J2270; J2405; J2543; J3010; J3370; J3490; J7060; Q0092